=== PATIENT | male | born 1960 | race Caucasian/White ===

== ENCOUNTER 2016-12-27 10:43 | Inpatient (IN) | payer OTHER ==
[2016-12-27] VITALS (8 sets, daily range): BP systolic 135–175; BP diastolic 57–85; PULSE 85–99; RESP 16–20; O2SAT 96–97
[~2016-12-27] VITALS: Ht 190.5 cm; Wt 114.2 kg
[~2016-12-27 10:43] MED LIST: Acetaminophen PO; CEFA2PLA9 IV; INSLIS SUBQ; INSU100V7 SUBQ; METR500T PO; OXYC5TAB72 PO; POLY17PO6 PO; SENN-133 PO
--- NOTE | 2016-12-27 10:54 | ED.REPORT ---
HPI-Abd Pain M 40 and Over Date of Service Dec 27, 2016 ED Provider: Jeffery Alexander MD 56 year old male with a history of diabetes, HTN, and hyperlipidemia presents to the ER complaining of upper abdominal pain onset yesterday. Pain radiates into his chest, and around his rib cage into his back. He also reports a near- syncopal episode yesterday while climbing the stairs. At that time he became lightheaded and immediately proceeded to go to bed and slept for the remainder of the day. Associated symptoms include shaking chills last night, several bouts of vomiting, three days of constipation, urinary hesitance, urinary urgency and urge incontinence. Patient denies dysuria. Nursing Notes Stated Complaint: CHEST AND ABDOMINAL PAIN, UNABLE TO RETAIN URINE Chief Complaint: Male Abdominal Pain Nursing Notes Reviewed: Yes Allergies: Coded Allergies: No Known Allergies (Unverified , 02/20/16) Scheduled Insulin Lispro (Humalog Kwikpen) 200 Unit/Ml (3 Ml) Insuln.pen 16 UNIT SQ BID Scheduled PRN ([Acetaminophen]) 325 MG TABLET 650 MG PO Q4H PRN PRN For Mild Pain or Fever General Time Seen by MD: 10:51 Chief Complaint Abdominal pain Hx Obtained From: Patient Arrived By: Walk-in Sudden in Onset?: No Onset Occurred: Yesterday Symptom Duration: Since onset Location: : Abdomen upper Quality: Painful Radiation: : Back Severity: Current: Moderate Severity: Maximum: Moderate Associated with: Reports: Constipation, Nausea, Vomiting Past Medical History Past Medical History Type II diabetes Hypertension Hyperlipidemia Past Surgical History Reports: Inguinal hernia repair Smoking History Never Smoker Social History Alcohol Use: "Social" Drug Use: Denies drug use Other Social History: Local resident Ambulatory Status Independent Review of Systems Constitutional: Reports: Chills, Fever Respiratory: Denies: Non-productive cough, Shortness of breath Cardiovascular: Reports: Chest pain GI: Reports: Abdominal pain, Constipation, Nausea, Vomiting, Denies: Diarrhea Male: Reports Incontinence, Reports Urinary frequency, Reports Urinary urgency, Denies Dysuria Musculoskeletal: Reports: Back pain Complete sys rev & neg: except as marked. Neurologic: Reports: Lightheaded, Syncope Physical Exam Initial Vital Signs Vital Signs (First) Date Time Temp Pulse Resp B/P Pulse Ox O2 Delivery O2 Flow Rate FiO2 12/27/16 10:46 36.8 99 18 155/81 97 Room Air Initial VS: Reviewed Head / Eyes: Atraumatic, Normocephalic Neck: Supple, Non-tender, Full range of motion Extremities: Vascular intact, Neuro intact, No swelling, No tenderness Skin: Warm, Dry, No cyanosis Neurologic: Alert, Oriented, Nonfocal General/Constitutional: Awake, Alert, Well developed, Well nourished Respiratory / Chest: Breath sounds NL, Breath sounds = bilat, No respiratory distress, No rales, No rhonchi, No wheezing Cardiovascular: Heart rate NL, Regular rhythm, Heart sounds NL, Peripheral circulation NL Abdomen: Soft, Non-tender, No guarding, No rebound, BS normoactive, No distention, No hernia, No palpable mass, No pulsatile mass Back: Inspection NL, Non-tender, No CVA tenderness Interpretation & Diagnostics Lab Results Interpretation Result Diagram: 12/27/16 1113 12/27/16 1113 Test 12/27/16 11:13 12/27/16 12:57 White Blood Count 13.8th/mm3 (3.8-10.1) Red Blood Count 5.49mil/mm3 (4.40-5.80) Hemoglobin 16.0g/dL (13.8-17.2) Hematocrit 46.4% (41.0-50.0) Mean Corpuscular Volume 84.5fL (81-100) Mean Corpuscular Hemoglobin 29.1pg (27.0-35.0) Mean Corpuscular Hemoglobin Concent 34.5% (32.0-37.0) Red Cell Distribution Width 12.8% (12.3-15.4) Platelet Count 184bil/L (150-400) Neutrophils (%) (Auto) 82.7% (40-74) Lymphocytes (%) (Auto) 8.5% (14-46) Monocytes (%) (Auto) 8.4% (4-12) Eosinophils (%) (Auto) 0% (0-5) Basophils (%) (Auto) 0.1% (0-3) Sodium Level 129mEq/L (134-144) Potassium Level 4.0mEq/L (3.5-5.2) Chloride Level 86mEq/L (97-108) Carbon Dioxide Level 18mmol/L (18-29) Blood Urea Nitrogen 17mg/dL (6-24) Creatinine 1.10mg/dL (0.76-1.27) Estimat Glomerular Filtration Rate 73mL/min (>59) Glucose Level 372mg/dL (60-99) Lactic Acid Level 2.3mmol/L (0.4-2.0) Calcium Level 9.7mg/dL (8.5-10.1) Magnesium Level 2.2mg/dL (1.6-2.6) Total Bilirubin 0.6mg/dL (0.0-1.2) Aspartate Amino Transf (AST/SGOT) 41U/L (0-50) Alanine Aminotransferase (ALT/SGPT) 38U/L (0-44) Alkaline Phosphatase 70U/L (25-150) Total Protein 8.5g/dL (6.4-8.4) Albumin 4.4g/dL (3.4-5.0) Lipase 14U/L (13-60) Urine Color Yellow (YELLOW) Urine Appearance Clear (CLEAR,HAZY) Urine pH 5.0 (5.0-8.0) Urine Specific [place] 1.070 (1.003-1.035) Urine Protein Tracemg/dL (NEG,TRACE) Urine Glucose (UA) 500mg/dL (NEGATIVE) Urine Ketones 80mg/dL (NEGATIVE) Urine Occult Blood Negative (NEGATIVE) Urine Nitrite Negative (NEGATIVE) Urine Bilirubin Negative (NEGATIVE) Urine Urobilinogen Normalmg/dL (NORMAL) Urine Leukocyte Esterase Moderate (NEGATIVE) Urine RBC 0-2/hpf (0-2) Urine WBC 11-50/hpf (0-5) Urine Epithelial Cells Few/hpf (NONE-MOD) Urine Crystals None seen (NONE SEEN) Urine Bacteria None/hpf (NONE-FEW) Urine Hyaline Casts None/lpf (NONE) Urine Granular Casts None seen (NONE SEEN) Urine Waxy Casts None seen (NONE SEEN) Urine Red Blood Cell Casts None seen (NONE SEEN) Urine White Blood Cell Casts None seen (NONE SEEN) Urine Mucus None seen (None Seen) Urine Trichomonas None seen (NONE SEEN) Urine Yeast None (NONE SEEN) Urinalysis Comment None Urine Culture Reflexed Indicated ECG Interpretation ECG Interpretation: Sinus rhythm, rate [address] segment changes Time: 11:11 Interpreted by: ED physician CT Abd / Pelvis Interpretation IMPRESSION: Cause of pain is not identified. Scattered diverticula without diverticulitis are present. Mild to moderate prostate enlargement is present. Dictated by: Brandon Wyman M.D. on 12/27/2016 at 13:07 Approved by: Brandon Wyman M.D. on 12/27/2016 at 13:11 Study type: Abdominal CT IV contrast Interpretation / Wet Read by: Interpret - Radiologist Re-Eval/Medical Decision Med Decision/Clinical Course 56 year old male with febrile illness, abdominal pain and UTI. Has 300cc post void residual. Hemodynamically stable, lactate up slightly. Was given NSx2L, blood and urine cx sent. Singh placed, rocephin 2g IV. Admit to hospitalist. FULL CODE per pt. Source of Hx: Old records Time of Eval: 13:38 Re-Evaluation/Progress Note: Discussed lab and CT results, physical examination findings and need for admission. Patient is amenable to the plan. All other questions addressed. Consultation : Referral / Consult Name: Hermelinda Ledesma MD Consulted With: Hospitalist Call Returned at: 13:[address] Clearer: Agrees with eval, Agrees with plan, Accepts admit Counseled Regarding: Diagnosis, Lab results, Need for admission Discharge & Departure Primary Impression: Sepsis Sepsis type: sepsis due to unspecified organism Qualified Code: A41.9 - Sepsis, unspecified organism Additional Impressions: UTI (urinary tract infection) Urinary tract infection type: acute pyelonephritis Qualified Code: N10 - Acute tubulo-interstitial nephritis Urinary retention Disposition: ADMITTED TO HOSPITAL Vital Signs - All Vital Signs Date Time Temp Pulse Resp B/P Pulse Ox O2 Delivery O2 Flow Rate FiO2 12/27/16 10:55 38.8 95 16 175/85 97 Room Air 12/27/16 10:46 36.8 99 18 155/81 97 Room Air )( All Prior VS Reviewed: Yes Condition: Stable Referrals: Gunnar Mirnada DO (PCP) [place] Attestation Portions of this note were transcribed by Len Orta. I, Dr. Alexander, personally performed the history, physical exam and medical decision-making; I reviewed and confirmed the accuracy of the information in the transcribed note. Signed by: Israel Dailey, 12/27/2016, and 13:59 copies to: Gunnar Miranda Donald L MD Dec 27, 2016 10:54 LEN ORTA Dec 27, 2016 11:04
[2016-12-27] MEDS ORDERED: 0.9% Sodium Chloride 1,000 ML IV ONE ×2 (11:01→12:15)
[2016-12-27] MEDS ORDERED: HYDROmorphone 0.5 mg/0.5 mL iSecure Syringe IVPUSH PRN (11:05)
[2016-12-27] MEDS ORDERED: Ondansetron 2 mg/mL 2 mL Inj IVPUSH PRN ×3 (11:05→14:15)
[2016-12-27] MEDS ORDERED: INSU200I SQ (11:19)
[2016-12-27 11:27] LABS: BASOPHILS % (AUTO) 0.1 % (0-3); EOSINOPHILS % (AUTO) 0 % (0-5); MONOCYTES % (AUTO) 8.4 % (4-12); Mean Corpuscular Hemoglobin 29.1 pg (27.0-35.0); Mean Corpuscular Volume 84.5 fL (81-100); NEUTROPHILS % (AUTO) 82.7 % (40-74); Platelet Count 184 bil/L (150-400)
[2016-12-27 11:58] LABS: Magnesium 2.2 mg/dL (1.6-2.6)
--- NOTE | 2016-12-27 13:13 | DRSVH ---
PROCEDURE: CT ABDOMEN AND PELVIS WITH CONTRAST ([id number]) INDICATIONS: abd pain L>R TECHNIQUE: After the administration of intravenous contrast, 5 mm thick sections acquired from the diaphragm to the symphysis. 5 mm coronal and sagittal reformats were acquired. For radiation dose reduction, the following was used: automated exposure control, adjustment of mA and/or kV according to patient lino melendrez. COMPARISON: [facility], CT, ABD/PELVIS W/CON ([facility]), 02/18/2014, 11:15. FINDINGS: Image quality: Excellent. ABDOMEN: Lung bases: Lung bases are clear. Heart size is normal. Solid organs: Liver and spleen are normal in size and enhancement. Gallbladder is within normal caceres its. Biliary system is non dilated. Pancreas enhances normally. No adrenal nodules. Kidneys demon strate normal size and enhancement, without hydronephrosis. Peritoneum and bowel: Bowel loops demonstrate normal wall thickness and caliber. No free fluid or a ir. The appendix is normal. No inflammatory changes are identified. Nodes and vessels: No retroperitoneal or mesenteric adenopathy by size criteria. Aorta and inferior vena cava are normal in size. Miscellaneous: No ventral hernias. PELVIS: Genitourinary: Bladder wall thickness is normal. Prostate is moderately to mildly enlarged. Miscellaneous: No inguinal hernias or adenopathy. Bones: No suspicious bony lesions. No vertebral body compression fractures. IMPRESSION: Cause of pain is not identified. Scattered diverticula without diverticulitis are present . Mild to moderate prostate enlargement is present. Dictated by: Brandon Wyman M.D. on 12/27/2016 at 13:07 Approved by: Brandon Wyman M.D. on 12/27/2016 at 13:11
[2016-12-27 13:22] LABS: APPEARANCE,URINE CLEAR (CLEAR,HAZY); COLOR,URINE YELLOW (YELLOW)
[2016-12-27 13:23] LABS: OCCULT BLOOD,URINE NEGATIVE (NEGATIVE); UROBILINOGEN,URINE NORMAL (NORMAL)
[2016-12-27] MEDS ORDERED: cefTRIAXone Inj 2,000 MG in Dextrose 5% Minibag Plus 50 ML IV ONE (13:40)
[2016-12-27] MEDS ORDERED: Alum-Mag Hydrox-Simeth 30 mL Suspension PO PRN (14:15)
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
[2016-12-27] MEDS ORDERED: Ciprofloxacin Inj 400 MG in IV Premix 1 EACH IV SCH (15:35)
[2016-12-27] MEDS: 0.9% Sodium Chloride 1,000 ML IV SCH (15:50)
[2016-12-27] MEDS ORDERED: INSU100I13 SUBQ (16:10)
[2016-12-27] MEDS ORDERED: Influenza (Adult) Vaccine 0.5 mL Syringe IM ONE (18:40)
--- NOTE | 2016-12-27 19:16 | NUR ---
Admission Patient admitted to the floor at 1600 from the ED. Admission questions and med list accomplished. Vitals - t 36.7, bp-145/74, p-86, rr-18, 02 - 96 ra. Patient complained of 6/10 abd pain. gave patient pain meds. Patient pain went down to 4/10. Oriented patient to the room, placed bed in lowest position and call light within reach.
[2016-12-27] MEDS: Heparin 5,000 Unit/mL Inj SUBQ SCH (21:31)
[2016-12-27] MEDS: Insulin Human REGular 300 Unit/3 mL Inj SUBQ SCH (22:06)
[2016-12-28] VITALS (7 sets, daily range): BP systolic 121–149; BP diastolic 62–77; PULSE 70–86; RESP 16–18; O2SAT 92–96
[2016-12-28] MEDS: 0.9% Sodium Chloride 1,000 ML IV SCH ×3 (00:58→19:27)
--- NOTE | 2016-12-28 01:46 | NUR ---
Pain, Febrile: Pt reported 5/10 abdominal pain, with back tenderness, early in shift. Also noted to have a temp of 38.1 C. Medicated with IV Morphine and Tylenol, pt was able to sleep for a bit. Upon checking with pt 3 hours later, he stated pain continued to be improved, 2/10 on the pain scale. Stated he was able to breath easier and didn't feel the "tightness" to his abdomen. Temp decreased to 37.3 C.
[2016-12-28] MEDS ORDERED: Vancomycin Inj 2,000 MG in 0.9% Sodium Chloride 500 ML IV ONE (03:00)
[2016-12-28] MEDS: Vancomycin Dose per Pharmacist XX SCH ×2 (03:31→08:30)
[2016-12-28] MEDS: Insulin Human REGular 300 Unit/3 mL Inj SUBQ SCH ×5 (03:49→22:33)
--- NOTE | 2016-12-28 04:44 | PCM.CONPHA ---
Subjective Date of Service: Dec 28, 2016 Requesting Provider: Chandu Garcia MD Intractable abdominal pain, vomiting, urinary complaints Reason for Pharmacy Consult: Vancomycin Dosing Objective Vital Signs Date Time Temp Pulse Resp B/P Pulse Ox O2 Delivery O2 Flow Rate FiO2 12/28/16 04:07 36.4 76 18 149/77 96 Room Air 12/28/16 00:11 37.3 83 18 142/65 96 Room Air 12/27/16 23:09 36.7 12/27/16 20:41 38.1 87 16 145/73 96 Room Air 12/27/16 20:00 85 12/27/16 16:03 39.2 87 20 135/57 96 Room Air 12/27/16 16:00 36.7 86 18 145/74 96 Room Air 12/27/16 15:50 87 12/27/16 14:14 39.2 88 20 135/57 96 Room Air 12/27/16 10:55 38.8 95 16 175/85 97 Room Air 12/27/16 10:46 36.8 99 18 155/81 97 Room Air Intake and Output 12/26/16 12/27/16 12/28/16 00:00 00:00 00:00 Intake Total 2375 ml Output Total 1070 ml Balance 1305 ml Weight (Kilograms): 114.200 Height (Feet): 6 Height (Inches): 3.00 Test 12/27/16 11:13 12/27/16 12:57 White Blood Count 13.8th/mm3 (3.8-10.1) Red Blood Count 5.49mil/mm3 (4.40-5.80) Hemoglobin 16.0g/dL (13.8-17.2) Hematocrit 46.4% (41.0-50.0) Mean Corpuscular Volume 84.5fL (81-100) Mean Corpuscular Hemoglobin 29.1pg (27.0-35.0) Mean Corpuscular Hemoglobin Concent 34.5% (32.0-37.0) Red Cell Distribution Width 12.8% (12.3-15.4) Platelet Count 184bil/L (150-400) Neutrophils (%) (Auto) 82.7% (40-74) Lymphocytes (%) (Auto) 8.5% (14-46) Monocytes (%) (Auto) 8.4% (4-12) Eosinophils (%) (Auto) 0% (0-5) Basophils (%) (Auto) 0.1% (0-3) Sodium Level 129mEq/L (134-144) Potassium Level 4.0mEq/L (3.5-5.2) Chloride Level 86mEq/L (97-108) Carbon Dioxide Level 18mmol/L (18-29) Blood Urea Nitrogen 17mg/dL (6-24) Creatinine 1.10mg/dL (0.76-1.27) Estimat Glomerular Filtration Rate 73mL/min (>59) Glucose Level 372mg/dL (60-99) Lactic Acid Level 2.3mmol/L (0.4-2.0) Calcium Level 9.7mg/dL (8.5-10.1) Magnesium Level 2.2mg/dL (1.6-2.6) Total Bilirubin 0.6mg/dL (0.0-1.2) Aspartate Amino Transf (AST/SGOT) 41U/L (0-50) Alanine Aminotransferase (ALT/SGPT) 38U/L (0-44) Alkaline Phosphatase 70U/L (25-150) Total Protein 8.5g/dL (6.4-8.4) Albumin 4.4g/dL (3.4-5.0) Lipase 14U/L (13-60) Procalcitonin 0.40ng/mL (0.00-0.08) Urine Color Yellow (YELLOW) Urine Appearance Clear (CLEAR,HAZY) Urine pH 5.0 (5.0-8.0) Urine Specific [place] 1.070 (1.003-1.035) Urine Protein Tracemg/dL (NEG,TRACE) Urine Glucose (UA) 500mg/dL (NEGATIVE) Urine Ketones 80mg/dL (NEGATIVE) Urine Occult Blood Negative (NEGATIVE) Urine Nitrite Negative (NEGATIVE) Urine Bilirubin Negative (NEGATIVE) Urine Urobilinogen Normalmg/dL (NORMAL) Urine Leukocyte Esterase Moderate (NEGATIVE) Urine RBC 0-2/hpf (0-2) Urine WBC 11-50/hpf (0-5) Urine Epithelial Cells Few/hpf (NONE-MOD) Urine Crystals None seen (NONE SEEN) Urine Bacteria None/hpf (NONE-FEW) Urine Hyaline Casts None/lpf (NONE) Urine Granular Casts None seen (NONE SEEN) Urine Waxy Casts None seen (NONE SEEN) Urine Red Blood Cell Casts None seen (NONE SEEN) Urine White Blood Cell Casts None seen (NONE SEEN) Urine Mucus None seen (None Seen) Urine Trichomonas None seen (NONE SEEN) Urine Yeast None (NONE SEEN) Urinalysis Comment None Urine Culture Reflexed Indicated Assessment/Plan Assessment/Plan A: * Vancomycin dosing by pharmacy for 56 y/o man * 2/2 of his blood cultures are growing gram positive cocci * He is also currently on ciprofloxacin IV * Estimated CrCl is 101 mL/min (Cockcroft & Gault) * Unknown if his SCr is acutely elevated at 1.1 mg/dL or if it's his current baseline; previous values from 2016 were around ~0.5-0.6 mg/dL * Estimated vancomycin half-life is 8 hours and estimated Vd is 80 liters P: * Starting vancomycin 2000 mg IV every 12 hours * Target vancomycin trough range of 15 - 20 mcg/mL * Drawing trough level prior to the fourth dose * Monitor renal function Thank you. Pharmacy will continue to follow this patient. Mara Whiting, PharmD Mara Whitnig Dec 28, 2016 04:44
[2016-12-28] MEDS: Ciprofloxacin Inj 400 MG in IV Premix 1 EACH IV SCH ×2 (05:55→19:27)
[2016-12-28 06:21] LABS: BASOPHILS % (AUTO) 0.1 % (0-3); EOSINOPHILS % (AUTO) 0 % (0-5); MONOCYTES % (AUTO) 10.6 % (4-12); Mean Corpuscular Hemoglobin 29.4 pg (27.0-35.0); Mean Corpuscular Volume 84.3 fL (81-100); NEUTROPHILS % (AUTO) 79.9 % (40-74); Platelet Count 167 bil/L (150-400)
[2016-12-28 07:01] LABS: Magnesium 2.1 mg/dL (1.6-2.6); Phosphorus 1.9 mg/dL (2.5-4.9)
[2016-12-28] MEDS ORDERED: Influenza (Adult) Vaccine 0.5 mL Syringe IM ONE (08:30)
[2016-12-28] MEDS: Heparin 5,000 Unit/mL Inj SUBQ SCH ×2 (08:49→19:27)
--- NOTE | 2016-12-28 10:37 | DRSVH ---
PROCEDURE: X-RAY CHEST ONE VIEW, PORTABLE ([id number]) INDICATIONS: fever TECHNIQUE: One view of the chest was acquired. COMPARISON: [facility], CT, CT ABD PELVIS W CON, 12/27/2016, 12:19. [facility], CR, CHEST 1VW (PORTABLE), 02/18/2014, 10:37. FINDINGS: Surgical changes and devices: None. Lungs and pleura: No pleural effusions or pneumothorax. Lung volumes are low and left basilar airsp sal opacity likely atelectasis. Mediastinum: Mediastinal contours appear normal. Heart size is normal. Bones and chest wall: No suspicious bony lesions. Soft tissues appear unremarkable. IMPRESSION: Left basilar airspace opacity which may represent atelectasis given the low lung volumes but developing pneumonia or aspiration cannot be excluded. Dictated by: Danny MOSQUEDA Interpreted: Pantera Greenfield MD on 12/28/2016 at 10:35 Transcribed by: KATHYA on 12/28/2016 at 10:36 Approved by: Avelino rGeenfield M.D. on 12/28/2016 at 14:40
--- NOTE | 2016-12-28 14:37 | NUR ---
Electromechanical Equipment Assembler: Brief Note Data & Assessment: Patient is a 56 y/o patient that admitted due to sepsis and urinary retention per H&P. SW met with patient at bedside ad explained SW role, discussed home life and discharge planning. Patient lives in a tri-level house with his and juan jose Yuen. Patient uses a walker at baseline. Patient reports that he has had home health in the past, but he can not recall the name. Patient states that he feels safe at home and his will pick him up when discharged. Patient does not have any discharge needs at the current time. SW will continue to follow patient throughout stay. Plan: Patient is likely to discharge home with family in POV and no needs. SW will continue to follow. Dione Marshall, VANIA, ACM
[2016-12-28] MEDS: Vancomycin Inj 2,000 MG in 0.9% Sodium Chloride 500 ML IV SCH (14:53)
--- NOTE | 2016-12-28 16:27 | PCM.PNMED ---
Subjective Date of Service Dec 28, 2016 Subjective complains of feeling "crummy" but denies any new issues/complaints. Exam Vital Signs Vital Sign - Last Date Time Temp Pulse Resp B/P Pulse Ox O2 Delivery O2 Flow Rate FiO2 12/28/16 14:29 36.8 70 16 137/63 95 Room Air Intake and Output 12/27/16 12/27/16 12/28/16 Cumulative From/Thru 15:00 23:00 07:00 12/27/16 10:46 - 12/28/16 05:56 Intake Total 2000 ml 375 ml 2794 ml 5169 ml Output Total 820 ml 250 ml 2250 ml 3320 ml Balance 1180 ml 125 ml 544 ml 1849 ml Intake Oral 375 ml 1020 ml 1395 ml IV Total 2000 ml 1774 ml 3774 ml Output Urine Total 820 ml 250 ml 2250 ml 3320 ml # Bowel Movements 0 0 General: Alert, Cooperative, No Acute Distress Head: Normal Eyes: Scleral Anicteric Nose: Mucous Membr Moist/[place] Mouth: Mucous Membr Moist/[place] Neck: Supple Chest & Lungs: Chest Wall Normal, Clear to auscultation & percussion Cardiovascular: Regular Rate/Rhythm Pulses: NL carotid, radial, femoral, DP, PT Abdomen: Non-tender, Non-distended, No hepatosplenomegaly, Soft Extremities: No cyanosis/clubbing/edma bilat Neurological: Grossly Neurologically Intact, Normal Speech IVs and Medications Medications Reviewed: Medications were reviewed in detail Lab and Diagnostics Result Diagram: 12/28/16 0600 12/28/16 0600 X-Rays, CTs and MRIs PROCEDURE: CT ABDOMEN AND PELVIS WITH CONTRAST ([id number]) INDICATIONS: abd pain L>R TECHNIQUE: After the administration of intravenous contrast, 5 mm thick sections acquired from the diaphragm to the symphysis. 5 mm coronal and sagittal reformats were acquired. For radiation dose reduction, the following was used: automated exposure control, adjustment of mA and/or kV according to patient size. COMPARISON: [facility], CT, ABD/PELVIS W/CON ([facility]), 02/18/2014, 11: 15. FINDINGS: Image quality: Excellent. ABDOMEN: Lung bases: Lung bases are clear. Heart size is normal. Solid organs: Liver and spleen are normal in size and enhancement. Gallbladder is within normal limits. Biliary system is non dilated. Pancreas enhances normally. No adrenal nodules. Kidneys demonstrate normal size and enhancement, without hydronephrosis. Peritoneum and bowel: Bowel loops demonstrate normal wall thickness and caliber. No free fluid or air. The appendix is normal. No inflammatory changes are identified. Nodes and vessels: No retroperitoneal or mesenteric adenopathy by size criteria. Aorta and inferior vena cava are normal in size. Miscellaneous: No ventral hernias. PELVIS: Genitourinary: Bladder wall thickness is normal. Prostate is moderately to mildly enlarged. Miscellaneous: No inguinal hernias or adenopathy. Bones: No suspicious bony lesions. No vertebral body compression fractures. IMPRESSION: Cause of pain is not identified. Scattered diverticula without diverticulitis are present. Mild to moderate prostate enlargement is present. Dictated by: Brandon Wyman M.D. on 12/27/2016 at 13:07 Approved by: Brandon Wyman M.D. on 12/27/2016 at 13:11 12-lead ECG ST92 Assessment & Plan 56-year-old male with hypertension-diet controlled, diabetes on Lantus presented with 2 days abdominal pain, chills, vomiting, urinary complaints. # Acute sepsis due to acute prostatitis and bacteremia, present on admission. improving - SIRS criteria with: fever/HR/RR/wbc and lactic acidosis - s/p Rocephin in ED - c/w Cipro (started on 12/27/16) for better prostate penetration - c/w IV Vanco (started on 12/27/16) for positive blood culture -await final UCX, BCX, -follow up PSA level, consider Urology consult, referral upon d/c # Acute bacteremia, present on admission - suspect source likely prostate infection - f/u final culture results - c/w IV Abx as noted above - consider echo to r/o endocarditis pending final culture result # Acute urinary retentions with enlarged prostate, present on admission - keep Singh for now, then likely to follow up with Urology outpatient # Acute hyponatremia, present on admission. ongoing but improving - c/w IVF and f/u # History of Diabetes Mellitus - c/w ISS - resume home Lantus once pt is more stable # HTN, chronic. - diet controlled. Dispo: 3-4 days VTE Mechanical Devices: Intermittant Pneumatic CD Time spent 35 min Magen Hopson Dec 28, 2016 16:26
[2016-12-29 00:18] VITALS: BP 148/75; PULSE 80; RESP 20; O2SAT 96
[2016-12-29] MEDS: Vancomycin Inj 2,000 MG in 0.9% Sodium Chloride 500 ML IV SCH ×2 (03:48→15:17)
[2016-12-29 04:42] VITALS: BP 160/72; PULSE 78; RESP 18; O2SAT 95
--- NOTE | 2016-12-29 05:27 | NUR ---
Pain, Activity: Medicated for abdominal/back pain with IV morphine x1 and PO Tylenol x1 thus far this shift. Pt was able to get up out of bed and ambulate to the bathroom tonight, had a BM.
[2016-12-29] MEDS: 0.9% Sodium Chloride 1,000 ML IV SCH (06:22)
[2016-12-29] MEDS: Ciprofloxacin Inj 400 MG in IV Premix 1 EACH IV SCH ×2 (06:24→20:34)
[2016-12-29 06:35] LABS: BASOPHILS % (AUTO) 0.1 % (0-3); EOSINOPHILS % (AUTO) 0.1 % (0-5); MONOCYTES % (AUTO) 10.6 % (4-12); Mean Corpuscular Hemoglobin 29.2 pg (27.0-35.0); NEUTROPHILS % (AUTO) 77.9 % (40-74); Platelet Count 191 bil/L (150-400)
[2016-12-29 07:01] LABS: Magnesium 2.1 mg/dL (1.6-2.6)
[2016-12-29] MEDS: Insulin Human REGular 300 Unit/3 mL Inj SUBQ SCH ×4 (07:51→20:59)
[2016-12-29] MEDS: Heparin 5,000 Unit/mL Inj SUBQ SCH ×2 (07:51→21:00)
[2016-12-29] MEDS: Insulin GLARgine 100 Unit/mL Syringe SUBQ SCH ×2 (09:58→20:57)
[2016-12-29 10:31] VITALS: PULSE 77
--- NOTE | 2016-12-29 14:24 | PCM.PNMED ---
Subjective Date of Service Dec 29, 2016 Subjective denies any new issues/complaints. Exam Vital Signs Vital Sign - Last Date Time Temp Pulse Resp B/P Pulse Ox O2 Delivery O2 Flow Rate FiO2 12/29/16 10:31 77 12/29/16 04:42 37.0 18 160/72 95 Room Air Intake and Output 12/28/16 12/28/16 12/29/16 Cumulative From/Thru 15:00 23:00 07:00 12/27/16 10:46 - 12/29/16 06:30 Intake Total 3395 ml 2325 ml 76664 ml Output Total 2400 ml 2200 ml 7920 ml Balance 995 ml 125 ml 2969 ml Intake Oral 1975 ml 900 ml 4270 ml IV Total 1420 ml 1425 ml 6619 ml Output Urine Total 2400 ml 2200 ml 7920 ml # Bowel Movements 0 0 Exam General: Alert, Cooperative, No Acute Distress Head: Normal Eyes: Scleral Anicteric Nose: Mucous Membr Moist/[place] Mouth: Mucous Membr Moist/[place] Neck: Supple Chest & Lungs: Chest Wall Normal, Clear to auscultation bilat Cardiovascular: Regular Rate/Rhythm Pulses: NL carotid, radial, femoral, DP, PT Abdomen: Non-tender, Non-distended, No hepatosplenomegaly, Soft Extremities: No cyanosis/clubbing/edema bilat Neurological: Grossly Neurologically Intact, Normal Speech IVs and Medications Medications Reviewed: Medications were reviewed in detail Lab and Diagnostics Result Diagram: 12/29/16 0608 12/29/16 0608 X-Rays, CTs and MRIs PROCEDURE: CT ABDOMEN AND PELVIS WITH CONTRAST ([id number]) INDICATIONS: abd pain L>R TECHNIQUE: After the administration of intravenous contrast, 5 mm thick sections acquired from the diaphragm to the symphysis. 5 mm coronal and sagittal reformats were acquired. For radiation dose reduction, the following was used: automated exposure control, adjustment of mA and/or kV according to patient size. COMPARISON: [facility], CT, ABD/PELVIS W/CON ([facility]), 02/18/2014, 11: 15. FINDINGS: Image quality: Excellent. ABDOMEN: Lung bases: Lung bases are clear. Heart size is normal. Solid organs: Liver and spleen are normal in size and enhancement. Gallbladder is within normal limits. Biliary system is non dilated. Pancreas enhances normally. No adrenal nodules. Kidneys demonstrate normal size and enhancement, without hydronephrosis. Peritoneum and bowel: Bowel loops demonstrate normal wall thickness and caliber. No free fluid or air. The appendix is normal. No inflammatory changes are identified. Nodes and vessels: No retroperitoneal or mesenteric adenopathy by size criteria. Aorta and inferior vena cava are normal in size. Miscellaneous: No ventral hernias. PELVIS: Genitourinary: Bladder wall thickness is normal. Prostate is moderately to mildly enlarged. Miscellaneous: No inguinal hernias or adenopathy. Bones: No suspicious bony lesions. No vertebral body compression fractures. IMPRESSION: Cause of pain is not identified. Scattered diverticula without diverticulitis are present. Mild to moderate prostate enlargement is present. Dictated by: Brandon Wyman M.D. on 12/27/2016 at 13:07 Approved by: Brandon Wyman M.D. on 12/27/2016 at 13:11 12-lead ECG ST92 Assessment & Plan 56-year-old male with hypertension-diet controlled, diabetes on Lantus presented with 2 days abdominal pain, chills, vomiting, urinary complaints. # Acute sepsis due to presumed acute prostatitis and MRSA bacteremia, present on admission. improving - SIRS criteria with: fever/HR/RR/wbc and lactic acidosis - s/p Rocephin in ED - c/w Cipro (started on 12/27/16) for better prostate penetration - c/w IV Vanco (started on 12/27/16) for positive blood culture # Acute MRSA bacteremia, present on admission - ? source. prostate seems unusual source - check echo to r/o endocarditis - repeat blood cultures until negative - c/w IV Vanco (started on 12/27/16) # Acute on chronic back pain - spine MRI to r/o underlying infection given bacteremia # Elevated PSA level (11.7), consider Urology consult as inpatient vs outpatient when clinically more stable. # Acute urinary retentions with enlarged prostate, present on admission - keep Singh for now, then likely to follow up with Urology outpatient # Acute hyponatremia, present on admission. - Resolved with IVF # History of Diabetes Mellitus. - poorly controlled with HgA1C 12.7 - c/w ISS - resume home Lantus # HTN, chronic. - diet controlled. Dispo: 3-4 days VTE Mechanical Devices: Intermittant Pneumatic CD Time spent 40 min Taleghani,Magen Dec 29, 2016 14:24
[2016-12-29] MEDS ORDERED: Vancomycin Serum Trough XX ONE (14:30)
[2016-12-29 15:03] VITALS: BP 199/78; PULSE 71; RESP 19; O2SAT 97
[2016-12-29 15:10] VITALS: BP 183/83; PULSE 83; RESP 18; O2SAT 97
--- NOTE | 2016-12-29 18:15 | NUR ---
Pt off floor to MRI. Tele notified and removed, IV SL. No s/sx of distress.
--- NOTE | 2016-12-29 18:16 | PCM.PHAPRO ---
Progress Date of Service: Dec 29, 2016 Intractable abdominal pain, vomiting, urinary complaints Vanco per Rx Trough is 5.6; subtherapeutic. SCR returned to 2016 baseline of 0.51 Aim for more aggressive dosing, due to current status; Increase dose to 1750mg Q*H; next trough on 12/31, before AM dose Marc Blakely PharmD Dec 29, 2016 18:16
--- NOTE | 2016-12-29 19:17 | NUR ---
Singh Singh securement device was pulled off. New securement placed, Singh appears to be continuing to drain by gravity. Report to next shift to follow up and monitor.
--- NOTE | 2016-12-29 19:35 | DRSVH ---
PROCEDURE: MRI LUMBAR SPINE WITH AND WITHOUT CONTRAST ([id number]) INDICATIONS: back pain, mrsa bacteremia TECHNIQUE: Noncontrast sagittal T1 spin echo and T2 fast spin echo, sagittal STIR, axial T1 and T2 fast spin ech o through the lumbar spine. In cases with scoliosis, additional coronal T2 fast spin echo may be per formed. After the administration of contrast, sagittal and axial T1 spin echo with fat saturation th rough the lumbar spine. COMPARISON: None. FINDINGS: Image quality: Excellent. Alignment and curvature: There is normal bony alignment. Marrow: Marrow is of normal overall signal. No acute vertebral body compression fractures. No susp icious marrow enhancement. Spinal cord: Conus medullaris terminates at the T12 level. Visualized spinal cord demonstrates norm al signal, without suspicious enhancement. Paraspinous soft tissues: No paravertebral masses or abnormal enhancement. L1-L2: Moderate disc desiccation and height loss. Broad-based disc bulge. Mild facet hypertrophy. No canal stenosis. No foraminal narrowing. L2-L3: Moderate disc desiccation and height loss. Broad-based disc bulge. No canal stenosis. No odilon inal narrowing. L3-L4: Mild disc desiccation and height loss. Broad-based disc bulge. No canal stenosis. No foraminal narrowing. L4-L5: Mild disc desiccation and height loss. Small posterior superimposed disc bulge with focal high intensity zone. No canal stenosis. Mild facet and ligamentum flavum hypertrophy. Mild bilateral neur oforaminal narrowing. L5-S1: Mild disc desiccation and height loss. Broad-based disc bulge. No canal stenosis. No neurofora kyler narrowing. IMPRESSION: 1. No suspicious enhancement to suggest discitis/osteomyelitis. 2. Mild to moderate disc desiccation and height loss throughout the lumbar spine. 3. Broad-based disc bulge with superimposed posterior central disc bulge L4-5 with a posterior annula r tear. 4. No significant canal stenosis or foraminal narrowing of the lumbar spine. Dictated by: Tiffani Davila M.D. on 12/29/2016 at 19:29 Approved by: Tiffani Davila M.D. on 12/29/2016 at 19:33
--- NOTE | 2016-12-29 20:12 | DRSVH ---
PROCEDURE: MRI THORACIC SPINE WITH AND WITHOUT CONTRAST ([id number]) INDICATIONS: back pain, mrsa bacteremia TECHNIQUE: Noncontrast sagittal T1 spin echo and T2 fast spin echo, sagittal STIR, axial T1 and T2 fast spin ech o through the thoracic spine. After the administration of contrast, axial and sagittal T1 spin echo with fat saturation through the thoracic spine. COMPARISON: None. FINDINGS: Image quality: Breathing motion artifact limits evaluation on the postcontrast views. Alignment and curvature: There is normal bony alignment. Marrow: Marrow is of normal overall signal. No acute vertebral body compression fractures. Spinal cord: Visualized spinal cord is of overall normal signal and size, without abnormal enhanceme nt. There is a questionable fluid collection within the posterior epidural space at T2-3. This demons trates mild mass effect on the adjacent cord without cord signal abnormality. It is unclear whether t here is true rim enhancement around this fluid collection. However, on series 17, image 25, there is apparent rim enhancement on single axial view. This is not well appreciated on the comparison sagitta l views in this region. Paraspinous soft tissues: No paravertebral masses or abnormal enhancement. Miscellaneous: There is diffuse disc desiccation and height loss throughout the thoracic spine mild to moderate in degree. No suspicious marrow enhancement or intervertebral disc enhancement. Central c anal and foramina appear widely patent at all scanned levels. IMPRESSION: 1. Questionable rim-enhancing fluid collection within the posterior T2-3 epidural space suspicious fo r small epidural abscess. The study is of limited diagnostic quality likely due to breathing motion a rtifact. Differential considerations include focal epidural lipomatosis. Consider neurosurgical consu ltation. This finding was discussed with Dr. Nelson at 8:05 PM on 12/29/16. 2. Moderate degenerative changes throughout the thoracic spine. Dictated by: Tiffani Davila M.D. on 12/29/2016 at 19:40 Approved by: Tiffani Davila M.D. on 12/29/2016 at 20:10
[2016-12-29 20:23] VITALS: BP 169/76; PULSE 83; RESP 18; O2SAT 96
--- NOTE | 2016-12-29 22:01 | NUR ---
Transfer to [facility] Pt sent via ALS transport to [facility]. Report given to ALS transporters.Pt Fax report filled out and sent to [facility]. Copy of pt fax report kept with transfer packet. Pt agreeable to transfer. He called his . Addendum: 12/29/16 at 2203 by GOOD GRULLON RN Pt drank his anita milk prior to transport
[2016-12-29] MEDS ORDERED: Vancomycin Inj 1,750 MG in 0.9% Sodium Chloride 500 ML IV SCH (23:30)
--- NOTE | 2016-12-30 08:07 | NUR ---
Positive Blood Cultures Rec'd call from lab about positive blood cultures drawn 12/29. Called ALEXANDRIA Marlow @ [facility] to relay results. Addendum: 12/30/16 at 2035 by GOOD CARRASCO RN Blood culture results faxed to [facility] ICU.
--- NOTE | 2016-12-30 14:15 | DRSVH ---
[facility] [address] [place] [address] Echocardiogram Report Name: YUE BURGESS LStudy Date: Height: 75 in Hospital Exam Location: [facility] Weight: 252 lb Gender: Male BSA: 2.4 m2 : 1960 Age: 56 yrs BP: 160/72 mmHg Reason For Study: ENDOCARDITIS Ordering Physician: Performed By: Flaca Clark Referring Physician: Alexis LOPEZ Interpretation Summary 1) Mild concentric left ventricular hypertrophy with normal size, wall motion, and systolic function (EF 60-65%). 2) Normal right ventricular size and function. 3) No significant valvular abnormalities. 4) Hypertension present during the study (BP 160/72). 5) Compared to the Echo done 02/27/2016, no significant change. Consdier JEZ if there is clinical suspicion for endocarditis. Procedure: A two-dimensional transthoracic echocardiogram with color flow and Doppler was performed. The study quality was technically adequate. Comparison is made with the echocardiogram of 02/27/16. The patient was in normal sinus rhythm during the exam. Left Ventricle: The left ventricle is normal in size. There is mild concentric left ventricular hypertrophy. The ejection fraction is estimated to be 60-65%. Left ventricular systolic function is normal. There are no focal wall motion abnormalities. Right Ventricle: The right ventricle is normal in size and function. Atria: The left atrium is mildly dilated. Right atrial size is normal. The interatrial septum is intact with no evidence for an atrial septal defect. Mitral Valve: The mitral valve is normal in structure and function. There is trace mitral regurgitation. Aortic Valve: The aortic valve is normal in structure and function. The aortic valve is trileaflet. The aortic valve opens well. No aortic regurgitation is present. Tricuspid Valve: The tricuspid valve is normal in structure and function. There is a trace or physiologic amount of tricuspid regurgitation. Pulmonary artery pressures cannot be estimated because of the lack of a measurable TR jet velocity. Pulmonic Valve: The pulmonic valve is not well seen, but is grossly normal. There is trace pulmonic regurgitation. Great Vessels: The aortic root is normal size. The dimensions of the ascending aorta are normal. The pulmonary artery is normal size. Pericardium/ Pleura There is no pericardial effusion. There is no pleural effusion. MMode/2D Measurements & Calculations LVIDd: 5.5 cm LA dimension: 4.7 cm RA long axis LVOT diam LVIDs: 3.5 cm FS: 35.8 % LA A2 area: 26.0 cm RA area AoV Opening EPSS: 0.54 cm LA A4 area: 27.2 cm IVSd: 1.3 cm LA length (vol): 6.2 cm : 16.7 cm Ao root diam LVPWd: 1.1 cm LA vol: 97.1 ml RA vol: 44.5 ml LA vol index RA Aortic Jxn : 18.4 mm2 : 3.0 cm IVC diam: 2.5 cm LV arias. diameter/BSA LV sys. diameter/BSA (cm/m^2): 2.3 (cm/m^2): 1.5 Doppler Measurements & Calculations Ao V2 max MV E max rakesh MV E/A: 1.5 MV dec time: 0.20 sec : 129.7 cm/sec : 107.4 cm/sec Pulm A Revs Ao max P.7 mmHg MV A max rakesh Dur: 0.09 sec Ao mean P.2 mmHg : 73.0 cm/sec MV A dur LVOT Max Rakesh : 0.11 sec : 104.3 cm/sec JUAN(I,D): 3.7 cm sev ratio: 0.84 MV P1/2t max rakesh Ao V2 mean LV V1 max PG JUAN indexed to BSA : 107.4 cm/sec : 98.8 cm/sec (cm^2/m^2): 1.5 Ao V2 VTI LV V1 VTI : 21.5 jose MARTINEZ(V,D): 3.5 cm2 Pulm Carlyle Verdin - A Dur: -0.02 msec Reading Physician:02:14 PM
--- NOTE | 2016-12-30 18:18 | PCM.DC.MED ---
Discharge Summary Date of Service Dec 30, 2016 Dates of Hospitalization Date of Hospital Admission Dec 27, 2016 at 14:56 Date of Discharge: Dec 30, 2016 Providers: Admitting Physician: Hermelinda Ledesma MD Primary Care Physician: Gunnar Miranda DO Attending Physician: Hermelinda Ledesma MD Diagnosis at Time of Discharge Diagnosis at Time of Discharge # Acute sepsis due to presumed acute prostatitis and MRSA bacteremia, present on admission. improving # Acute MRSA bacteremia, present on admission # Acute thoracis epidural abscess # Elevated PSA level (11.7) # Acute urinary retentions with enlarged prostate, present on admission # Acute hyponatremia, present on admission. # History of Diabetes Mellitus. # HTN, chronic. Procedures XRay, CTs & MRIs Date of Service: 12/27/16 1101 PROCEDURE: CT ABDOMEN AND PELVIS WITH CONTRAST ([id number]) IMPRESSION: Cause of pain is not identified. Scattered diverticula without diverticulitis are present. Mild to moderate prostate enlargement is present. Dictated by: Brandon Wyman M.D. on 12/27/2016 at 13:07 Approved by: Brandon Wyman M.D. on 12/27/2016 at 13:11 Date of Service: 12/29/16 1424 PROCEDURE: MRI THORACIC SPINE WITH AND WITHOUT CONTRAST ([id number]) IMPRESSION: 1. Questionable rim-enhancing fluid collection within the posterior T2-3 epidural space suspicious for small epidural abscess. The study is of limited diagnostic quality likely due to breathing motion artifact. Differential considerations include focal epidural lipomatosis. Consider neurosurgical consultation. This finding was discussed with Dr. Nelson at 8:05 PM on 12/29/16. 2. Moderate degenerative changes throughout the thoracic spine. Dictated by: Tiffani Davila M.D. on 12/29/2016 at 19:40 Approved by: Tiffani Davila M.D. on 12/29/2016 at 20:10 Cardiac Echo Impression Date of Service: 12/29/16 1424 PROCEDURE: MRI LUMBAR SPINE WITH AND WITHOUT CONTRAST ([id number]) IMPRESSION: 1. No suspicious enhancement to suggest discitis/osteomyelitis. 2. Mild to moderate disc desiccation and height loss throughout the lumbar spine. 3. Broad-based disc bulge with superimposed posterior central disc bulge L4-5 with a posterior annular tear. 4. No significant canal stenosis or foraminal narrowing of the lumbar spine. Dictated by: Tiffani Davila M.D. on 12/29/2016 at 19:29 Approved by: Tiffani Davila M.D. on 12/29/2016 at 19:33 Date of Service: 12/29/16 0739 Echocardiogram Report Reading Physician:02:14 PM Brief History noted in H&P by DR. Ledesma: 56-year-old male with hypertension-diet controlled, diabetes on Lantus presented with 2 days abdominal pain, chills, vomiting, urinary complaints. Patient was usual state of health until 2 days ago, having dribbling when he urinated and it developed urgency, frequency or urination, lower abdominal pain. For the past 2 days, abdominal pain has progressed to throughout his belly up to his chest, last night patient had vomiting once, dry heaves, really became shaky and chills, poor appetite, unable to take anything down because of pain, decided to come to the hospital. Patient usually sees his PCP once a year for checkup, blood sugar has been 200s at baseline. Patient never had urinary problems in the past, was never told that he has prostate problem, denied history of STD, UTI, kidney stones Emergency room vitals blood pressure 150s tachycardic to 99, 97% on room air, developed fever 38.8-39.2. labs showed elevated wbc with neut dominant, hyponatremia, metabolic acidosis, AG25, lactate2.3, UA was +leukEST, neg nitrite , [id number], no bacteria, Abd/pelvis CT win con showed mild-moderate enlargement of prostate, otherwise unremarkable. Pt received 2liters of NS, one dose of Rocephin for presumed UTI. Upon interview at emergency room, pt still c/o abd pain 03/10, denied n/v, feels still weak, sick. Hospital Course # Acute sepsis due to presumed acute prostatitis and MRSA bacteremia, present on admission. improving - SIRS criteria with: fever/HR/RR/wbc and lactic acidosis - s/p Rocephin in ED - c/w Cipro (started on 12/27/16) for better prostate penetration - c/w IV Vanco (started on 12/27/16) for positive blood culture # Acute MRSA bacteremia, present on admission - ? source. prostate seems unusual source - check echo to r/o endocarditis - repeat blood cultures until negative - c/w IV Vanco (started on 12/27/16) # Acute on chronic back pain - spine MRI on 12/29 with ? thoracic epidural abscess # Elevated PSA level (11.7), consider Urology consult as inpatient vs outpatient when clinically more stable. # Acute urinary retentions with enlarged prostate, present on admission - keep Singh for now, then likely to follow up with Urology outpatient # Acute hyponatremia, present on admission. - Resolved with IVF # History of Diabetes Mellitus. - poorly controlled with HgA1C 12.7 - c/w ISS - resume home Lantus # HTN, chronic. - diet controlled. pt was transferred to [facility] overnight by the night hospitalist after MRI result was back suggestive of possible infection. Exam Vital Signs (Last) Date Time Temp Pulse Resp B/P Pulse Ox O2 Delivery O2 Flow Rate FiO2 12/29/16 20:23 36.8 83 18 169/76 96 Room Air Test 12/27/16 11:13 12/27/16 12:57 12/28/16 06:00 12/28/16 08:30 Lipase 14U/L (13-60) Prostate Specific Antigen 11.7ng/mL (0.0-4.0) Urine Color Yellow (YELLOW) Urine Appearance Clear (CLEAR,HAZY) Urine pH 5.0 (5.0-8.0) Urine Specific [place] 1.070 (1.003-1.035) Urine Protein Tracemg/dL (NEG,TRACE) Urine Glucose (UA) 500mg/dL (NEGATIVE) Urine Ketones 80mg/dL (NEGATIVE) Urine Occult Blood Negative (NEGATIVE) Urine Nitrite Negative (NEGATIVE) Urine Bilirubin Negative (NEGATIVE) Urine Urobilinogen Normalmg/dL (NORMAL) Urine Leukocyte Esterase Moderate (NEGATIVE) Urine RBC 0-2/hpf (0-2) Urine WBC 11-50/hpf (0-5) Urine Epithelial Cells Few/hpf (NONE-MOD) Urine Crystals None seen (NONE SEEN) Urine Bacteria None/hpf (NONE-FEW) Urine Hyaline Casts None/lpf (NONE) Urine Granular Casts None seen (NONE SEEN) Urine Waxy Casts None seen (NONE SEEN) Urine Red Blood Cell Casts None seen (NONE SEEN) Urine White Blood Cell Casts None seen (NONE SEEN) Urine Mucus None seen (None Seen) Urine Trichomonas None seen (NONE SEEN) Urine Yeast None (NONE SEEN) Urinalysis Comment None Urine Culture Reflexed Indicated Hemoglobin A1c 12.7% (4.8-5.6) Phosphorus Level 1.9mg/dL (2.5-4.9) Total Bilirubin 0.4mg/dL (0.0-1.2) Aspartate Amino Transf (AST/SGOT) 27U/L (0-50) Alanine Aminotransferase (ALT/SGPT) 26U/L (0-44) Alkaline Phosphatase 54U/L (25-150) Total Protein 5.8g/dL (6.4-8.4) Albumin 3.3g/dL (3.4-5.0) Procalcitonin 0.32ng/mL (0.00-0.08) Lactic Acid Level 1.0mmol/L (0.4-2.0) Test 12/29/16 06:08 12/29/16 14:35 White Blood Count 14.1th/mm3 (3.8-10.1) Red Blood Count 4.83mil/mm3 (4.40-5.80) Hemoglobin 14.1g/dL (13.8-17.2) Hematocrit 40.1% (41.0-50.0) Mean Corpuscular Volume 83.0fL (81-100) Mean Corpuscular Hemoglobin 29.2pg (27.0-35.0) Mean Corpuscular Hemoglobin Concent 35.2% (32.0-37.0) Red Cell Distribution Width 12.8% (12.3-15.4) Platelet Count 191bil/L (150-400) Neutrophils (%) (Auto) 77.9% (40-74) Lymphocytes (%) (Auto) 10.8% (14-46) Monocytes (%) (Auto) 10.6% (4-12) Eosinophils (%) (Auto) 0.1% (0-5) Basophils (%) (Auto) 0.1% (0-3) Sodium Level 134mEq/L (134-144) Potassium Level 3.5mEq/L (3.5-5.2) Chloride Level 96mEq/L (97-108) Carbon Dioxide Level 17mmol/L (18-29) Blood Urea Nitrogen 7mg/dL (6-24) Creatinine 0.51mg/dL (0.76-1.27) Estimat Glomerular Filtration Rate 178mL/min (>59) Glucose Level 248mg/dL (60-99) Calcium Level 8.4mg/dL (8.5-10.1) Magnesium Level 2.1mg/dL (1.6-2.6) Vancomycin Level Trough 5.6mcg/mL Discharge Medications Discharge Medications Insulin Glargine (Lantus U100 Solostar Insulin Pen) 100 Unit/1 Ml Insuln.pen 16 UNIT SUBQ BID (Reported) As needed ([Acetaminophen]) 325 MG TABLET 650 MG PO Q4H PRN PRN For Mild Pain or Fever Prescribed by: XOCHILT BELTRAN MD Followup Plan Disposition: Transfer to [facility] Time spent 35 min copies to: Gunnar Miranda Masoud Dec 30, 2016 18:17
[2016-12-31] MEDS ORDERED: Vancomycin Serum Trough XX ONE (07:00)
== END 2016-12-29 22:05 | disposition short-term general hospital (02) | DRG 871 ==
LOC: SED 11:08 → MPC 14:56
PROVIDERS: ADMIT Internal Medicine; ATTEND Internal Medicine
DX: A41.02 Sepsis due to Methicillin resistant Staphylococcus aureus (principal); G06.1 Intraspinal abscess and granuloma; N41.0 Acute prostatitis; E87.1 Hypo-osmolality and hyponatremia; E87.2 Acidosis; I10 Essential (primary) hypertension; E11.9 Type 2 diabetes mellitus without complications; R97.20 Elevated prostate specific antigen [PSA]; E78.5 Hyperlipidemia, unspecified; R33.8 Other retention of urine; N40.1 Benign prostatic hyperplasia with lower urinary tract symptoms; F12.90 Cannabis use, unspecified, uncomplicated; Z79.4 Long term (current) use of insulin

== ENCOUNTER 2017-03-16 16:13 | Emergency (ER) | payer OTHER ==
[~2017-03-16] VITALS: Ht 190.5 cm; Wt 115.9 kg
[~2017-03-16 16:13] MED LIST changes: -CEFA2PLA9 IV; -INSLIS SUBQ; +INSU100I13 SUBQ; -INSU100V7 SUBQ; -METR500T PO; -OXYC5TAB72 PO; -POLY17PO6 PO; -SENN-133 PO
[2017-03-16 16:29] VITALS: BP 123/81; PULSE 66; RESP 18; O2SAT 100
--- NOTE | 2017-03-16 17:17 | DRSVH ---
PROCEDURE: X-RAY CHEST ONE VIEW, PORTABLE ([id number]) INDICATIONS: 56 year-old male with chest pain. TECHNIQUE: One view of the chest was acquired. COMPARISON: [facility], CR, XR CHEST 1VW (PORTABLE), 12/28/2016, 9:56. [facility], CR, CHEST 1VW (PORTABLE), 02/18/2014, 10:37. [facility], CR, CHEST 2VW, 09/17/2013 , 9:24. FINDINGS: Surgical changes and devices: None. Lungs and pleura: No pleural effusions or pneumothorax. Lungs are clear. Mediastinum: Mediastinal contours appear normal. Heart size is normal. Bones and chest wall: No suspicious bony lesions. Overlying soft tissues appear unremarkable. IMPRESSION: No acute cardiopulmonary disease. Dictated by: Erwin Santizo M.D. on 03/16/2017 at 17:09 Approved by: Erwin Santizo M.D. on 03/16/2017 at 17:10
[2017-03-16 17:36] VITALS: BP 137/78; PULSE 94; RESP 14; O2SAT 97
[2017-03-16 17:46] LABS: BASOPHILS % (AUTO) 0.3 % (0-3); EOSINOPHILS % (AUTO) 0.8 % (0-5); MONOCYTES % (AUTO) 7.1 % (4-12); Mean Corpuscular Hemoglobin 27.6 pg (27.0-35.0); Mean Corpuscular Volume 81.5 fL (81-100); Platelet Count 353 bil/L (150-400)
[2017-03-16 18:08] LABS: TROPONIN T < 0.010 ug/L (0.0-0.011)
--- NOTE | 2017-03-16 18:08 | DRSVH ---
PROCEDURE: X-RAY CHEST ONE VIEW, PORTABLE ([id number]) INDICATIONS: 56 year-old male with chest pain. TECHNIQUE: One view of the chest was acquired. COMPARISON: [facility], CR, XR CHEST 1VW (PORTABLE), 03/16/2017, 16:40. [facility], CR, XR CHEST 1VW (PORTABLE), 12/28/2016, 9:56. [facility], CR, CHEST 1VW (PORTABL E), 02/18/2014, 10:37. FINDINGS: Surgical changes and devices: None. Lungs and pleura: No pleural effusions or pneumothorax. Lungs are clear. Mediastinum: Mediastinal contours appear normal. Heart size is normal. Bones and chest wall: No suspicious bony lesions. Overlying soft tissues appear unremarkable. IMPRESSION: No acute cardiopulmonary disease. Dictated by: Erwin Santizo M.D. on 03/16/2017 at 18:00 Approved by: Erwin Santizo M.D. on 03/16/2017 at 18:01
--- NOTE | 2017-03-16 18:15 | ED.REPORT ---
HPI-Chest Pain 40 and Over Date of Service March 16, 2017 ED Provider: James Khan DO Patient is a 56 year old male with a history of hypertension, diabetes and hyperlipidemia who had a thoracic spine epidural abscess drained a few months ago who presents to the ED complaining of chest pain onset two days ago. Associated symptoms include pain that radiates into his back and abdomen, shortness of breath, subjective fever and diarrhea. He denies vomiting or cough. The patient reports that the pain has gotten progressively worse and describes the pain as a tightness that gets worse after eating. Nursing Notes Stated Complaint: BACK PAIN, CHEST PAIN Chief Complaint: Chest Pain Nursing Notes Reviewed: Yes Allergies: Coded Allergies: No Known Allergies (Unverified , 02/20/16) Scheduled Insulin Glargine (Lantus U100 Solostar Insulin Pen) 100 Unit/1 Ml Insuln.pen 16 UNIT SUBQ BID Scheduled PRN ([Acetaminophen]) 325 MG TABLET 650 MG PO Q4H PRN PRN For Mild Pain or Fever General Time Seen by MD: 18:14 Chief Complaint Chest pain Hx Obtained From: Patient Arrived By: Walk-in Sudden in Onset?: Yes Onset Occurred: 2 days ago Symptom Duration: Since onset Location: : Substernal Radiation: : Abdomen: Back Associated with: Reports: Fever (subjective), Shortness of Breath, Denies: Cough, non-productive, Vomiting Recent Healthcare: Recent doctor visit, Recent hospitalization Past Medical History Past Medical History Type II diabetes Hypertension Hyperlipidemia Past Surgical History back surgery Reports: Inguinal hernia repair Smoking History Never Smoker Social History Alcohol Use: "Social" Drug Use: Denies drug use Other Social History: Local resident Ambulatory Status Independent Review of Systems Constitutional: Reports: Fever (subjective) Respiratory: Reports: Shortness of breath, Denies: Non-productive cough Cardiovascular: Reports: Chest pain GI: Reports: Abdominal pain, Diarrhea, Denies: Vomiting Musculoskeletal: Reports: Back pain Complete sys rev & neg: except as marked. Physical Exam Initial Vital Signs Vital Signs (First) Date Time Temp Pulse Resp B/P Pulse Ox O2 Delivery O2 Flow Rate FiO2 03/16/17 16:29 36.6 66 18 123/81 100 Room Air Initial VS: Reviewed General/Constitutional: Awake, Alert Respiratory / Chest: Atraumatic, Breath sounds NL, Breath sounds = bilat, No respiratory distress Cardiovascular: Heart rate NL, Regular rhythm, Heart sounds NL Abdomen: Atraumatic, Soft Tenderness/Guarding/Rebound: Positive: Tender diffuse Back: Atraumatic, Full range of motion paramidline incision healing well Skin: Atraumatic, Color NL, No rash, Warm, Dry Neurologic: Oriented X3, Speech NL, No motor deficits, No sensory deficits Psychiatric: Affect NL, Mood NL Head / Eyes: Atraumatic, Normocephalic, PERRL, EOMI Interpretation & Diagnostics Interpretation & Diagnostics: ULTRASOUND ABDOMEN: IMPRESSION: Diffusely heterogeneous liver echotexture, a nonspecific finding that probably represents mild fatty infiltration in the absence of any known chronic liver disease or primary malignancy. Dictated by: Erwin Santizo M.D. on 03/16/2017 at 19:24 Approved by: Erwin Santizo M.D. on 03/16/2017 at 19:27 THORACIC SPINE MRI: IMPRESSION: 1. Interval development of T4-T5 posterior discitis with adjacent T4 and T5 vertebral body and medial left fourth rib osteomyelitis. Residual or recurrent T4 and T5 left paravertebral heterogeneously enhancing infectious phlegmon is also present, with extension through the left neural foramen to cause significant left central spinal canal narrowing with cord compression. 2. Additional posterior epidural enhancement from the T1-T7 levels, suspicious for epidural abscess. Findings were discussed with James Khan at 2140 hrs on March 16, 2017. Dictated by: Erwin Santizo M.D. on 03/16/2017 at 21:26 Approved by: Erwin Santizo M.D. on 03/16/2017 at 21:45 Lab Results Interpretation Result Diagram: 03/16/17 1744 03/16/17 1744 Test 03/16/17 17:44 White Blood Count 14.3th/mm3 (3.8-10.1) Red Blood Count 4.92mil/mm3 (4.40-5.80) Hemoglobin 13.6g/dL (13.8-17.2) Hematocrit 40.1% (41.0-50.0) Mean Corpuscular Volume 81.5fL (81-100) Mean Corpuscular Hemoglobin 27.6pg (27.0-35.0) Mean Corpuscular Hemoglobin Concent 33.9% (32.0-37.0) Red Cell Distribution Width 13.8% (12.3-15.4) Platelet Count 353bil/L (150-400) Neutrophils (%) (Auto) 75.0% (40-74) Lymphocytes (%) (Auto) 16.6% (14-46) Monocytes (%) (Auto) 7.1% (4-12) Eosinophils (%) (Auto) 0.8% (0-5) Basophils (%) (Auto) 0.3% (0-3) Sodium Level 131mEq/L (134-144) Potassium Level 4.1mEq/L (3.5-5.2) Chloride Level 92mEq/L (97-108) Carbon Dioxide Level 20mmol/L (18-29) Blood Urea Nitrogen 14mg/dL (6-24) Creatinine 0.70mg/dL (0.76-1.27) Estimat Glomerular Filtration Rate 124mL/min (>59) Glucose Level 399mg/dL (60-99) Calcium Level 9.9mg/dL (8.5-10.1) Magnesium Level 2.0mg/dL (1.6-2.6) Total Bilirubin 0.4mg/dL (0.0-1.2) Aspartate Amino Transf (AST/SGOT) 15U/L (0-50) Alanine Aminotransferase (ALT/SGPT) 14U/L (0-44) Alkaline Phosphatase 94U/L (25-150) Troponin T < 0.010ug/L (0.0-0.011) C-Reactive Protein 13.1mg/dL (0.0-0.5) Total Protein 8.3g/dL (6.4-8.4) Albumin 3.9g/dL (3.4-5.0) ECG Interpretation ECG Interpretation: sinus or ectopic atrial rhythm abnormal R-wave progression, early transition Time: 16:35 Interpreted by: ED physician Normal ECG Interpretation: Normal rate (91) X-Ray Chest Interpretation Chest Xray Interpretation: IMPRESSION: No acute cardiopulmonary disease. Dictated by: Erwin Santizo M.D. on 03/16/2017 at 17:09 Approved by: Erwin Santizo M.D. on 03/16/2017 at 17:10 View: Portable, 1 view Interpretation / Wet Read by: Interpret - Radiologist Re-Eval/Medical Decision Med Decision/Clinical Course MRI shows significant areas of infection including the disks, vertebral bodies, or rib and a misty-incisional phlegmon that is probably infected as well. Suspicious also for epidural abscess. This is all beyond the capabilities of our facilities as we do not have a spine surgeon. I consulted with Dr. Sierra and Dr. Cornejo at [facility]. They have graciously accepted Mr. Lewis in transfer. We will hold off antibiotics until they have definitive tissue to culture and they will initiate antibiotics. Mr. Lewis does not have any indicators of sepsis. He is not tachycardic or hypotensive and he certainly does not look acutely ill. I think it is prudent to hold off on antibiotics to tissue culture has been taken. Dr. Cornejo concurs. Time of Eval: 16:40 Re-Evaluation/Progress Note: Discussed plan for MRI and further evaluation. Consultation : Consulted With: Trauma surgeon Call Returned at: 22:37 [employer]: Will see patient, Agrees with eval, Agrees with plan, Accepts admit Note: Consult with Dr. Cornejo from [facility], who accepts the transfer. Counseled Regarding: Diagnosis, Lab results, Need for transfer Discharge & Departure Primary Impression: Osteomyelitis of thoracic region Additional Impressions: Discitis of thoracic region Epidural abscess Postoperative abscess Encounter type: subsequent encounter Qualified Code: T81.4XXD - Infection following a procedure, subsequent encounter Disposition: Transfer, Acute Care Facility Discharge Condition All VS Reviewed: Yes Condition: Stable Referrals: Gunnar Miranda DO (PCP) [place] Attestation Portions of this note were transcribed by Thea Ceron. I, Dr. Khan personally performed the history, physical exam and medical decision-making; I reviewed and confirmed the accuracy of the information in the transcribed note. Signed by: Israel Roach, 03/16/17 and 2200 copies to: Gunnar Miranda Todd P DO March 16, 2017 18:15 Fatuma Ceron March 16, 2017 18:22
[2017-03-16 18:35] VITALS: BP 133/74; PULSE 78; RESP 17; O2SAT 97
[2017-03-16] MEDS ORDERED: Ondansetron 2 mg/mL 2 mL Inj IVPUSH PRN (18:40)
[2017-03-16] MEDS ORDERED: HYDROmorphone 0.5 mg/0.5 mL iSecure Syringe IVPUSH PRN (18:40)
--- NOTE | 2017-03-16 19:34 | DRSVH ---
PROCEDURE: US ABDOMEN ([id number]) INDICATIONS: 56 year-old male with chest and upper abdominal pain. TECHNIQUE: Real-time scanning was performed of the abdominal and retroperitoneal organs, with image documentatio n. COMPARISON: [facility], CT, CT ABD PELVIS W CON, 12/27/2016, 12:19. FINDINGS: Liver: Liver is normal in size and diffusely heterogeneous in echotexture. Gallbladder: No gallstones or biliary sludge. Gallbladder wall thickness is normal. No pericholecyst ic fluid. Biliary ducts: Intrahepatic bile ducts are non-dilated. Extrahepatic bile duct caliber measures 4.3 mm. Normal is 6-7 mm or less in diameter, or 10 mm or less post-cholecystectomy. Pancreas: Visualized portions of the pancreas are sonographically normal. Spleen: Spleen is normal in size and homogeneous in echotexture. Kidneys: Kidneys are normal in size and echotexture. Right kidney measures 13.7 cm long; left kidne y measures 12.4 cm long. No hydronephrosis or nephrolithiasis. No solid masses. Aorta: Visualized aorta is normal in caliber at less than 3 cm. Iliacs: Proximal common iliac arteries are normal in caliber at less than 2.5 cm. IVC: Intrahepatic inferior vena cava is patent. Miscellaneous: No free abdominal fluid. IMPRESSION: Diffusely heterogeneous liver echotexture, a nonspecific finding that probably represents mild fatty infiltration in the absence of any known chronic liver disease or primary malignancy. Dictated by: Erwin Santizo M.D. on 03/16/2017 at 19:24 Approved by: Erwin Santizo M.D. on 03/16/2017 at 19:27
[2017-03-16 21:37] VITALS: BP 151/77; PULSE 92; RESP 17; O2SAT 95
--- NOTE | 2017-03-16 21:52 | DRSVH ---
PROCEDURE: MRI THORACIC SPINE WITH AND WITHOUT CONTRAST ([id number]) INDICATIONS: 56 year-old male with upper back pain, and paravertebral abscess debridement several mon ths ago. TECHNIQUE: Noncontrast sagittal T1 spin echo and T2 fast spin echo, sagittal STIR, axial T1 and T2 fast spin ech o through the thoracic spine. After the administration of contrast, axial and sagittal T1 spin echo with fat saturation through the thoracic spine. COMPARISON: [facility], MR, MR THORACIC SPINE W&WO CON, 12/29/2016, 18:28. FINDINGS: Image quality: Excellent. Alignment and curvature: There is normal bony alignment. Marrow: Marrow is of normal overall background signal, with newly apparent localized bone marrow moshe ma and enhancement involving the posterior T4 and T5 vertebral bodies, with involvement of the medial left fourth rib as well. The intervening intervertebral disc also demonstrates posterior fluid sign al. No acute vertebral body compression fractures. Spinal cord: Visualized spinal cord is of normal signal and size, without abnormal enhancement. Ther e is abnormal posterior epidural thickening and enhancement from the T1-T7 levels. Paraspinous soft tissues: There is heterogeneously enhancing left paravertebral soft tissue left of t he L4 and L5 vertebral bodies. On series 9 image 21, there is extension of abnormal enhancement throu gh the left T4-T5 neural foramen to cause asymmetric narrowing of the central spinal canal. There is C5-T6 posterior paravertebral enhancement and linear surgical scar. IMPRESSION: 1. Interval development of T4-T5 posterior discitis with adjacent T4 and T5 vertebral body and medial left fourth rib osteomyelitis. Residual or recurrent T4 and T5 left paravertebral heterogeneously en hancing infectious phlegmon is also present, with extension through the left neural foramen to cause significant left central spinal canal narrowing with cord compression. 2. Additional posterior epidural enhancement from the T1-T7 levels, suspicious for epidural abscess. Findings were discussed with James Khan at 2140 hrs on March 16, 2017. Dictated by: Erwin Santizo M.D. on 03/16/2017 at 21:26 Approved by: Erwin Santizo M.D. on 03/16/2017 at 21:45
[2017-03-16 22:47] VITALS: BP 137/64; PULSE 82; RESP 14; O2SAT 96
== END 2017-03-16 23:15 | disposition short-term general hospital (02) ==
LOC: SED 16:13
DX: T81.4XXD Infection following a procedure, subsequent encounter (principal); Y83.8 Other surgical procedures as the cause of abnormal reaction of the patient, or of later complication, without mention of misadventure at the time of the procedure; Y92.89 Other specified places as the place of occurrence of the external cause; Y99.8 Other external cause status; M46.24 Osteomyelitis of vertebra, thoracic region; M46.44 Discitis, unspecified, thoracic region; I10 Essential (primary) hypertension; E78.5 Hyperlipidemia, unspecified; E11.9 Type 2 diabetes mellitus without complications; Z79.4 Long term (current) use of insulin
CPT/HCPCS: 36415; 71010; 72157; 76700; 80053; 83735; 84484; 85025; 86140; 87040; 87077; 87186; 93005; 99285; A9585

== ENCOUNTER 2017-04-07 12:14 | Inpatient (IN) | payer OTHER ==
[~2017-04-07] VITALS: Ht 190.5 cm; Wt 114.0 kg
[2017-04-07 12:19] VITALS: BP 118/72; PULSE 95; RESP 16; O2SAT 97
--- NOTE | 2017-04-07 13:33 | ED.REPORT ---
HPI-General Illness Date of Service Apr 07, 2017 ED Provider: Diana Balbuena MD Pt is a 56 y/o male w/ a hx of thoracic discitis, epidural abscess, and osteomyelitis, NIDDM, HTN, presenting to the ED due to elevated Vancomycin trough levels. The patient was called by [facility] and told his Vancomycin level was "3x too high". 5 months ago they found "5 abscesses about his thoracic spine" which were surgically removed at [facility]. He was discharged to [facility] for 3 months. He then presented to the ED again on March 16 with complaints of chest and back pain and a thoracic MRI was interpreted as "interval development of T4-T5 posterior discitis with adjacent T4 and T5 vertebral body and medial left fourth rib osteomyelitis. Residual or recurrent T4 and T5 left paravertebral heterogeneously enhancing infectious phlegmon is also present, with extension through the left neural foramen to cause significant left central spinal canal narrowing with cord compression. Additional posterior epidural enhancement from the T1-T7 levels, suspicious for epidural abscess." He was sent back to [facility] and was subsequently discharged to home health with outpatient Vancomycin. He does not remember who his doctor in [facility] is or how to contact them. An infectious disease PA called our ED prior to arrival and told us that his blood cultures were positive in early March but negative in late March and that his recent labs showed a Vancomycin level of 34 with signs of acute renal failure with a baseline creatinine bump from around 0.6 to 2.3 today. He reports chest tightness which is chronic. He would not be in the ED if he was not told his Vancomycin level was too high. His last Vancomycin infusion was yesterday at 08:00. Pt denies fever, chills, nausea, vomiting, decreased urination. Nursing Notes Stated Complaint: INFECTION ON BACK Chief Complaint: General Complaint Nursing Notes Reviewed: Yes Allergies: Coded Allergies: No Known Allergies (Unverified , 02/20/16) Scheduled Insulin Glargine (Lantus U100 Solostar Insulin Pen) 100 Unit/1 Ml Insuln.pen 20 UNIT SUBQ BID Insulin Lispro (HumaLOG U100 Insulin Pen) 100 Unit/1 Ml Insuln.pen 4-8 UNITS [id number] BEFORE MEALS General Time Seen by MD: 13:30 Chief Complaint Other (abnl labs) Hx Obtained From: Patient Arrived By: Walk-in Sudden in Onset?: No Onset Occurred: Onset unknown Symptom Duration: Since onset Location: : Chest Quality: Pressure Severity: Current: Mild Severity: Maximum: Mild Recent Healthcare: Recent doctor visit, Recent hospitalization, Recent testing , Previous diagnosis, Prior workup Similar Sx Previous: No Past Medical History Past Medical History Notes: Much of care at [facility] Past Medical History Thoracic spine osteomyelitis Thoracic spine discitis Thoracic spine epidural abscess Type II diabetes Hypertension Hyperlipidemia Hx UTI Hx right foot osteomyelitis Past Surgical History Back PICC line insertion right antecubital fossa Reports: Inguinal hernia repair Smoking History Never Smoker Social History Alcohol Use: "Social" Drug Use: Denies drug use Other Social History: Local resident Ambulatory Status Independent Review of Systems Full Review of Systems Constitutional: Denies: Chills, Fever Respiratory: Denies: Non-productive cough, Shortness of breath Cardiovascular: Reports: Chest pain GI: Denies: Abdominal pain, Nausea, Vomiting Male: Denies Flank pain, Denies Urination decreased Complete sys rev & neg: except as marked. Physical Exam Vital Signs Vital Signs Date Time Temp Pulse Resp B/P Pulse Ox O2 Delivery O2 Flow Rate FiO2 04/07/17 12:19 36.9 95 16 118/72 97 Room Air Initial VS: Reviewed, Vital signs normal Head / Eyes: Atraumatic, Normocephalic, PERRL ENT: Mucous membranes moist, Conjunctiva normal, No scleral icterus Respiratory: Breath sounds normal, Clear to auscultation, No respiratory distress Cardiovascular: Regular rate & rhythm, Heart sounds normal, Intact distal pulses Abdomen / GI: Soft, Non-tender, No guarding, No rebound, No distention Skin: Warm, Dry, No cyanosis Neurologic: Alert, Oriented, Nonfocal Psychiatric: Mood/affect normal, Behavior normal, Normal thought content Neck: Atraumatic, Supple, No meningismus, Full range of motion, No swelling, Non-tender, No midline vertebral tend Back: Full range of motion, Painless range of motion Well healed cervical and thoracic scar Upper Extremities Upper Extremity / MS: No erythema, No deformity, Neurologic intact, Vascular intact PICC line right antecubital fossa Interpretation & Diagnostics Lab Results Interpretation Result Diagram: 04/07/17 1340 Test 04/07/17 13:40 Sodium Level 133mEq/L (134-144) Potassium Level 4.5mEq/L (3.5-5.2) Chloride Level 94mEq/L (97-108) Carbon Dioxide Level 20mmol/L (18-29) Blood Urea Nitrogen 38mg/dL (6-24) Creatinine 2.23mg/dL (0.76-1.27) Estimat Glomerular Filtration Rate 32mL/min (>59) Glucose Level 346mg/dL (60-99) Calcium Level 9.6mg/dL (8.5-10.1) Hold Teresa Top Tube Received (Received) Random Vancomycin Level 26.3ug/mL Rx Re-Eval/Medical Decision Med Decision/Clinical Course 56-year-old gentleman with complex history of epidural abscess spinal surgeries osteomyelitis R with MRSA. Discharged from [facility] on March 27. PICC line in place plan was for 12 additional weeks of vancomycin. Reports of blood cultures finally negative prior to his discharge from [facility]. Has been followed by the infectious disease clinic at [facility]. Has had home health nursing helping with IV infusion. Recent labs indicate increasing creatinine and increasing vancomycin level. He is asked to come to the closest emergency department for his presumed vancomycin induced renal toxicity. At this point he is alert and appropriate stable no signs of acute infectious disease he has a PICC line in the right antecubital fossa. He has no signs of volume overload. Have ordered UA and renal ultrasound. Nephrology and infectious disease consult. Will be admitted to our hospitalist service. Records from [facility] are reviewed and found to see review of recent vancomycin dosing has been done as well Time of Eval: 15:08 Re-Evaluation/Progress Note: Pt rechecked. Informed pt of need for admission for management of acute renal failure. Pt understands and agrees with plan for admission. All questions addressed. Consultation #1: Call Returned at: 13:35 Note: Consulted pharmacist. They will try to contact [facility] to find Vancomycin dosing. Consultation #2: Referral / Consult Name: Brett Li MD Call Returned at: 15:04 Chef Manager: Will see patient, Agrees with eval, Agrees with plan Note: Consulted with ID. He will follow the case during the patient's admission. Consultation #3: Referral / Consult Name: Brett Li MD Consulted With: Nephrology Call Returned at: 15:06 Chef Manager: Will see patient, Agrees with eval, Agrees with plan Note: Will follow during admit. Consultation #4: Referral / Consult Name: Leonidas Carter MD Consulted With: Hospitalist Call Returned at: 15:52 Chef Manager: Will see patient, Agrees with eval, Agrees with plan, Accepts admit Counseled Regarding: Diagnosis, Lab results, Need for admission Discharge & Departure Primary Impression: Acute renal failure Acute renal failure type: unspecified Qualified Code: N17.9 - Acute kidney failure, unspecified Additional Impression: Vancomycin-induced nephrotoxicity Disposition: ADMITTED TO HOSPITAL Discharge Condition All VS Reviewed: Yes Condition: Stable Referrals: Gunnar Miranda DO (PCP) Israel Attestation Portions of this note were transcribed by Gerard Laws. I, Dr. Balbuena personally performed the history, physical exam and medical decision-making; I reviewed and confirmed the accuracy of the information in the transcribed note. Signed by Israel Barron, 04/07/17 - 1399 copies to: Gunnar Miranda Shawna L MD Apr 07, 2017 13:33 GERARD LAWS Apr 07, 2017 13:40
[2017-04-07] MEDS ORDERED: INSU100I18 SUBCUTA079 (15:47)
[2017-04-07] MEDS ORDERED: Polyethylene Glycol (PEG) 17 Gm Powder PO PRN (16:20)
[2017-04-07] MEDS ORDERED: Alum-Mag Hydrox-Simeth 30 mL Suspension PO PRN (16:20)
[2017-04-07] MEDS ORDERED: Ondansetron 2 mg/mL 2 mL Inj IVPUSH PRN (16:20)
[2017-04-07] MEDS ORDERED: Glucose 40% Oral Gel 15 Gm Tube PO PRN (16:25)
--- NOTE | 2017-04-07 16:54 | PCM.HPMED ---
Subjective Date of Service Apr 07, 2017 Primary Provider: Admitting Physician: Primary Care Physician: Gunnar Miranda DO Attending Physician: Admit Status: From the Emergency Department, Full Admit, Admit to Red Team Chief Complaint: Patient was called and advised to come to emergency room by ID clinic due to worsening kidney function and elevated vancomycin level History of Present Illness: Background history Grayson Is unfortunate 56-year-old gentleman with past medical history of diabetes, hypertension who presented to [facility] on 12/27/16 with sepsis/MRSA bacteremia and MRI showed T2-T3 epidural abscess and transferred to [facility] on 12/29. He was found to have C4-T5 MRSA epidural abscess and underwent laminectomy and evacuation. He was discharged with IV antibiotics? Vancomycin and completed. 2 weeks after he completed his antibiotics course he presented to [facility] ED on 03/16/17 with back pain. MRI showed T4- T5 posterior discitis with adjacent T4 and T5 vertebral body and medial left 4th rib osteomyelitis and T4- T5 infectious phlegmon with extension to the left neural foramen causing significant left central spinal canal narrowing. Also showed T1- T7 epidural abscess. He was transferred to [facility] on 03/16 from emergency room. He was found to have MRSA bacteremia, T1- T3 osteomyelitis, C7- T1 epidural phlegmon. He did not undergo surgery on recent admission. It was thought to be due to hematogenous spread of infection and progression of previous infection to osteomyelitis.TTE 03/19 and JEZ 03/23 negative for endocarditis. He was treated with vancomycin and rifampicin. He was discharged on 03/27 to home with IV vancomycin to complete 12 weeks treatment. [facility] ID note states he was discharged on vancomycin ( 03/16 -present) and rifampin but the patient states he is only on vancomycin. He did not have any neurological deficit on recent admission. Blood culture 03/18 MRSA 6 bottles,03/17 1 out of 4 bottles. Blood culture 03/21,03/22 no growth He was giving vancomycin twice daily infusion himself. He gave blood samples yesterday and got a call today stating his kidney function has worsened with creatinine in mid 2's from normal baseline and vancomycin level in 40's and was advised to come to [facility] ED . ID team at [facility] recommended admission and workup for COLEMAN, recommended stopping vancomycin and checking daily vancomycin level. Also recommended switching to IV daptomycin 6 mg per KG once daily once vancomycin level is < 10 Denies fever. He is Eating and drinking as usual. No diarrhea. Patient has chronic history of prostatism symptoms. History of urgency. He had elevated PSA > 10 on prior admission in Dec and was attributed to prostatitis. ED course: Vitals unremarkable. Creatinine 2.23,Na 133, glucose 246, vancomycin random 26.3 Nephrology and ID consulted by ED Review of Systems: Comprehensive review of systems performed, pertinent positives and negative included in history of present illness Allergies Coded Allergies: No Known Allergies (Unverified , 02/20/16) Home Medications Lantus 20 units twice a day lisipro 4-5units 3 times a day with meals Vancomycin 1.75 gm twice a day Patient denies any other medication but discharge medications include atorvastatin 40 mg by mouth daily, rifampicin 300 mg by mouth twice a day PMH Recently recurrent epidural abscess Diabetes insulin-dependent Surgical History C4-T5 MRSA epidural abscess laminectomy and evacuation Right fourth toe amputation Family History Brother diabetic and had CABG at age 51 Younger sister had cardiac disease Mother alive age 81 Father at age 73 due to diabetes complication Social History Hx Alcohol Use: Yes (NONE X3 MONTHS ) Alcoholic Drinks Per Day: 2/WEEK Hx Substance Use: Yes (MARIJUANA) Hx Tobacco Use: No Smoking Status: Never Smoker Exam Vital Signs Vital Sign - Last Date Time Temp Pulse Resp B/P Pulse Ox O2 Delivery O2 Flow Rate FiO2 04/07/17 12:19 36.9 95 16 118/72 97 Room Air Exam Gen. patient is lying comfortably in hospital bed HEENT: Head is normocephalic atraumatic, Pupils equal and reactive, extraocular movements intact, Lungs clear to auscultation bilaterally Heart regular rate and rhythm without murmurs gallops or rubs Abdomen soft nontender without hepatosplenomegaly Extremities pulses are present dorsalis pedis posterior tibialis and radial. tSkin is warm and dry there are no rashes, Psych alert and oriented to person place and time Neuro cranial nerves II through XII are grossly intact.spinal tenderness T3-T5 area,cervical and thoracic spine surgical scar Lymph: There is no lymphadenopathy appreciated in the cervical supra infraclavicular regions : no jimenes Lab and Diagnostics Result Diagram: 04/07/17 1340 Assessment & Plan Grayson Is unfortunate 56-year-old gentleman with past medical history of diabetes, hypertension, recent MRSA bacteremia, MRSA epidural abscess and spinal osteomyelitis currently on IV vancomycin admitted due to COLEMAN # COLEMAN -Possibility due to vancomycin toxicity. Patient on higher dose of vancomycin for better bone penetration. But Patient had completed vancomycin course previously with out any issue. It is possible patient may have inadvertently taken other nephrotoxic medications. Patient does not seem to be on top of his medication list. His discharge summary and recent ID clinic notes state he is discharged on rifampin but patient denies. His recent clinic note also states he is on lisinopril and Lasix but patient denies. -Initial creatinine 2.3, baseline normal -KUB US pending,PSA,UA requested -NS at 150ml/h -Discontinued vancomycin, check level daily # Recent MRSA bacteremia, MRSA epidural abscess, spinal osteomyelitis -Discontinued vancomycin. Plan to switch to IV daptomycin 6 mg per KG once daily once vancomycin level is < 10 -His discharge summary and recent ID clinic notes state he is discharged on rifampin but patient denies. Restart rifampcin -ID consulted by ED -Blood culture requested -Patient continues to have significant spinal tenderness. will consider repeating the MRI after discussing with ID # Hyponatremia -NS as above # Insulin-dependent diabetes -Continue home Lantus 20 bid -a1c requested # Hypertension -Patient on lisinopril per Clinic notes but patient denies. hold BP meds if any Patient admitted under inpatient status with expected length of stay > 2 midnights for severity of present symptoms, complexities of treatment plan and risk for adverse events full code Resuscitation Status: CPR: Attempt Resuscitation Time spent 65 minutes reviewing records and coordinating admission copies to: Gunnar Miranda Melaku MD Apr 07, 2017 16:54
[2017-04-07 17:08] VITALS: BP 143/80; PULSE 78; RESP 18; O2SAT 97
[2017-04-07] MEDS: 0.9% Sodium Chloride 1,000 ML IV SCH (17:20)
--- NOTE | 2017-04-07 17:26 | DRSVH ---
PROCEDURE: US RENAL SONOGRAM INDICATIONS: renal failure TECHNIQUE: Real-time scanning was performed of the kidneys and bladder, with image documentation. COMPARISON: None. FINDINGS: Kidneys: Kidneys are normal in size. Right kidney measures 15.1 cm long; left kidney measures 13.2 cm long. Right renal cortical thickness is 1.5 cm; left renal cortical thickness is 1.7 cm. Renal c ortical echotexture is normal. No hydronephrosis or nephrolithiasis. No suspicious solid mass lesio ns. Bladder: Pre-void bladder volume is 407 mL. Post-void residual is 27 mL. Pre-void images demonstra te no intraluminal masses or stones. On pre-void images, the left ureteral jet is noted with color D oppler interrogation. (Of note, ureteral jets may not be detectable in up to 25% of cases due to ins ufficient differences in specific gravity between ureteral and bladder urine). Miscellaneous: No free pelvic fluid. IMPRESSION: 1. No evidence of hydronephrosis. 2. Kidneys are sonographically normal. Dictated by: Maren Paz MD, PhD on 04/07/2017 at 17:23 Approved by: Maren Paz MD, PhD on 04/07/2017 at 17:25
[2017-04-07 17:29] VITALS: BP 143/80; PULSE 78; RESP 18; O2SAT 97
[2017-04-07] MEDS ORDERED: 0.9% Sodium Chloride 1,000 ML IV ONE (17:30)
[2017-04-07 17:52] VITALS: BP 166/90; PULSE 81; RESP 16; O2SAT 97
[2017-04-07 18:07] LABS: BASOPHILS % (AUTO) 0.2 % (0-3); MONOCYTES % (AUTO) 8.4 % (4-12); Mean Corpuscular Volume 82.9 fL (81-100); NEUTROPHILS % (AUTO) 72.9 % (40-74); Platelet Count 323 bil/L (150-400)
--- NOTE | 2017-04-07 18:10 | NUR ---
admitted to room 1019 fro ER alert, comfortable, pt has no complaints. Gave 1000cc Bolus NS prior to starting NS @ 150cc/hr, VSS
[2017-04-07] MEDS: Insulin LISPRO 300 Unit/3 mL Inj SUBQ SCH ×2 (18:35→22:13)
[2017-04-07 20:00] VITALS: BP 164/84; PULSE 80; RESP 16; O2SAT 97
[2017-04-07] MEDS: Insulin GLARgine 100 Unit/mL Syringe SUBQ SCH ×2 (20:30→21:08)
[2017-04-08] VITALS (8 sets, daily range): BP systolic 133–181; BP diastolic 72–93; PULSE 72–78; RESP 16–19; O2SAT 94–98
[2017-04-08] MEDS: 0.9% Sodium Chloride 1,000 ML IV SCH ×3 (01:39→16:33)
--- NOTE | 2017-04-08 02:54 | NUR ---
Pain Patient c/o back pain 06/10 specifically spine. Hospitalist paged via [email or web address], awaiting response. Patient comforted with additional pillows and position change. Ice chips and Ice bag recently given to "cool" patient off now able to fall back to sleep. Continue plan of care at this time.
[2017-04-08 04:06] LABS: BASOPHILS % (AUTO) 0.2 % (0-3); EOSINOPHILS % (AUTO) 2.5 % (0-5); MONOCYTES % (AUTO) 8.1 % (4-12); Mean Corpuscular Volume 82.9 fL (81-100); NEUTROPHILS % (AUTO) 72.3 % (40-74); Platelet Count 299 bil/L (150-400)
[2017-04-08] MEDS: Insulin GLARgine 100 Unit/mL Syringe SUBQ SCH ×2 (08:36→21:51)
[2017-04-08] MEDS: Insulin LISPRO 300 Unit/3 mL Inj SUBQ SCH ×4 (08:36→21:51)
[2017-04-08] MEDS ORDERED: Sodium Chloride LOK Flush 10 mL Syringe IVFLUSH PRN ×2 (10:40)
[2017-04-08] MEDS: oxyCODONE-Acetamin 5-325 mg Tablet PO PRN ×2 (13:05→17:40)
--- NOTE | 2017-04-08 13:22 | PCM.PNMED ---
Subjective Date of Service Apr 08, 2017 Subjective No new complaints. Afebrile. Continues to have upper back pain which is unchanged from his recent baseline. No extremity weakness or numbness. Exam Vital Signs Vital Sign - Last Date Time Temp Pulse Resp B/P Pulse Ox O2 Delivery O2 Flow Rate FiO2 04/08/17 09:17 36.8 74 19 139/79 96 Room Air Intake and Output 04/07/17 04/07/17 04/08/17 Cumulative From/Thru 15:00 23:00 07:00 04/07/17 12:19 - 04/08/17 02:50 Intake Total 150 ml 150 ml Balance 150 ml 150 ml IV Total 150 ml 150 ml Exam Gen. patient is lying comfortably in hospital bed HEENT: Head is normocephalic atraumatic, Pupils equal and reactive, extraocular movements intact, Lungs clear to auscultation bilaterally Heart regular rate and rhythm without murmurs gallops or rubs Abdomen soft nontender without hepatosplenomegaly Extremities pulses are present dorsalis pedis posterior tibialis and radial. 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 No motor or sensory deficits Lymph: There is no lymphadenopathy appreciated in the cervical supra infraclavicular regions : no jimenes IVs and Medications Medications Reviewed: Medications were reviewed in detail Lab and Diagnostics Result Diagram: 04/08/17 0350 04/08/17 0350 X-Rays, CTs and MRIs PROCEDURE: US RENAL SONOGRAM INDICATIONS: renal failure IMPRESSION: 1. No evidence of hydronephrosis. 2. Kidneys are sonographically normal. Dictated by: Maren Paz MD, PhD on 04/07/2017 at 17:23 Assessment & Plan Grayson Is unfortunate 56-year-old gentleman with past medical history of diabetes, hypertension, recent MRSA bacteremia, MRSA epidural abscess and spinal osteomyelitis currently on IV vancomycin admitted due to COLEMAN # COLEMAN , improving -Possibility due to vancomycin toxicity. Patient on higher dose of vancomycin for better bone penetration. But Patient had completed vancomycin course previously with out any issue. It is possible patient may have inadvertently taken other nephrotoxic medications. Patient does not seem to be on top of his medication list. His discharge summary and recent ID clinic notes state he is discharged on rifampin and vancomycin but patient denies refampcin prescription. His recent clinic note also states he is on lisinopril and Lasix but patient denies. -Initial creatinine 2.3, improved 1.94. Baseline normal -KUB US normal,PSA elevated at 4.7, will need outpatient workup,UA pending -Continue NS at 150ml/h -Discontinued vancomycin, check level daily, Level 23.4 today # Recent MRSA bacteremia, MRSA epidural abscess, spinal osteomyelitis -Discontinued vancomycin. Plan to switch to IV daptomycin 6 mg per KG once daily once vancomycin level is < 10 -His discharge summary and recent ID clinic notes state he is discharged on rifampin but patient denies. Restart rifampcin -ID consulted -Blood culture requested -Patient continues to have significant spinal tenderness. will consider repeating the MRI if any neurological change #Elevated PSA -Unclear significance. Patient had elevated PSA > 10 back in December. He has BPH symptoms.will start Flomax. May need workupof elevated PSA outpatient # Hyponatremia, improving -NS as above # Uncontrolled Insulin-dependent diabetes -Continue home Lantus 20 bid -a1c 11.6. Doubt patient's insulin compliance at home. Patient was inpatient almost half of the last 3-4 months which I would assume he would have better glucose control. # Hypertension -Patient on lisinopril per Clinic notes but patient denies. hold BP meds if any Patient admitted under inpatient status with expected length of stay > 2 midnights for severity of present symptoms, complexities of treatment plan and risk for adverse events full code Disposition: Discharged in 2-3 days on daptomycin and rifampin Resuscitation Status: CPR: Attempt Resuscitation Leonidas Carter MD Apr 08, 2017 13:22
--- NOTE | 2017-04-08 15:10 | CONS ---
[address] [address] CONSULTATION REPORT PATIENT: YUE BURGESS : 1960 MR#: [id number] ADMIT: 04/07/2017 JOB ID: [id number] DATE OF SERVICE: 04/08/2017 INFECTIOUS DISEASE CONSULT: I thank Dr. Carter for this timely consult. REASON FOR CONSULTATION: Vancomycin-induced renal failure in a patient with MRSA osteomyelitis of the spine. HISTORY OF THE PRESENT ILLNESS: The patient is a very complex 56-year-old known to me from an admission about a year ago. During that admission, the patient, who has underlying diabetes, had stepped on a nail and then developed osteomyelitis of his right 2nd toe. Eventually required resection of the toe and then a prolonged course of IV antibiotics for MSSA and osteomyelitis. He got through that therapy without any difficulty and was able to go back to work. More recently, he presented to this hospital in late December with what was thought to be febrile prostatitis. He was eventually found to have a MRSA bacteremia with severe cervical and upper thoracic pain. An MRI scan revealed that he actually had a spinal epidural abscess. The patient was emergently transferred on or about December 30 to [place], where he underwent an extensive laminectomy from C4-T5. This was obviously due to the MRSA and he received a long course of IV vancomycin, followed by some oral Bactrim, which ended around March 01. At the conclusion of that therapy, the patient felt well and was getting close to the point where he thought he could return to work. Unfortunately, within a couple of weeks of finishing his antibiotics he developed increasing and severe back pain, which brought him back to the emergency department again on March 16. At that time an emergent MRI was repeated, and his MRI showed that he had developed T4-5 posterior diskitis with involvement of T4-5 vertebral body and associated osteomyelitis, and there was also an enhancing phlegmon at the T4-5 level with extension through the left neural foramen with cord compression on the left. The radiologists were also concerned about possible epidural enhancement all the way from T1-T7 with possible epidural abscess. The patient was then emergently transferred from the ED here back to [facility]. Blood cultures turned out to be positive during that second admission as well for MRSA, which was clindamycin and daptomycin susceptible. At [facility], he was evaluated by Spine Surgery again, as well as the Infectious Disease service. It was decided not to operate and rather to treat him for about three months for vertebral osteo with associated phlegmon. They carefully examined the patient from a neurologic point of view, and felt he would be stable for this. Subsequently, the patient was discharged home just a week or so ago to receive IV vancomycin through at least May 20, along with oral rifampin 300 t.i.d. During his week or so at home, the home infusion company, [facility], has had a terrible time reaching the patient because they noticed that his vancomycin levels were rapidly increasing. Starting on about Wednesday, they noticed his vancomycin troughs were becoming too high and made many attempts to call him. Eventually, they had to send a nurse to his house to tell him to stop taking the vancomycin which he had been going along taking as per schedule. By the time the vancomycin was finally stopped, a random level was approaching 60 and his creatinine had increased dramatically from his baseline around 0.6 to 2.23. He was directed to go to the emergency department here at [facility]. I had recommended this patient actually probably go back to [facility], as he has a very complex spine infection, which has basically not been cured after one long attempt which included surgery and now has recurred and is quite disabling to the patient. Apparently, [facility] was not able to accommodate the patient though, and they have recommended we admit him here to deal with his vancomycin-induced renal failure. On speaking to the patient, it is also clear he has no idea about the rifampin and has clearly not taken any of it since he was discharged home. The patient tells me he has not had fevers or chills the last few days. He has noticed continual upper back pain and headaches, which he says are closely tied to one another. He has not had a sore throat. He has had a minimal nonproductive cough without anterior chest pain. He denies nausea, vomiting, or diarrhea. He states that his urine output seems to have fallen way off during the days after he left [facility] and was at home taking the vancomycin, and it now seems to be picking up again. He has not had any additional problems with his right foot. PAST MEDICAL HISTORY: 1. Diabetes mellitus. 2. Hyperlipidemia. 3. Hypertension. 4. MSSA osteomyelitis of right foot with resection of 2nd toe in 2016. 5. Spinal epidural abscess, cervical and thoracic, in December 2015, status post laminectomy and prolonged IV antibiotics. 6. Relapsing spine infection with diskitis, vertebral osteo and phlegmon in March 2017. 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 He drinks minimally and does not smoke and has never smoked cigarettes. He lives with his and family [place] of [place]. FAMILY HISTORY: The patient has a negative family history in first and second-degree relatives for TB, though very extensive diabetes family history. REVIEW OF SYSTEMS: The patient has headache and upper back and neck pain, which is quite severe. He denies any visual change. No sore throat. No odynophagia. No enlarged lymph nodes that he is aware of. He has a minimal dry cough but no significant shortness of breath or chest pain. No nausea, vomiting, or diarrhea. He did have decreased urine output for a few days. It is now picking up. No dysuria. No swelling of the joints. He ambulates and gets around with a great deal of trouble due to his back pain. The remainder of the review of systems negative. PHYSICAL EXAMINATION: Reveals an afebrile gentleman. Temp 36.8, pulse 74, respiratory rate 19, blood pressure 139/79, saturating 96% on room air. He is in no acute distress. He is awake and alert. His head without abnormalities or trauma. Eyes without conjunctivitis or scleral icterus. Nose is normal. Oral cavity, no thrush or hairy leukoplakia. Neck is fairly stiff, actually, without supraclavicular or cervical adenopathy. The patient cannot sit up. He can carefully roll over. He has a well-healed incision, which goes from the middle of the thoracic spine down to about T5. The area from about T1-T7 is exquisitely tender to palpation posteriorly. There is no erythema though, nor is there any drainage. Lungs are notable for a few crackles at the bases. Cardiac tones: Regular rate and rhythm without murmur. A benign-appearing PICC line is in the right upper extremity. His abdomen is soft and nontender without organomegaly. He has no suprapubic fullness. He does not have a Singh catheter at this point. His extremities are without evidence of synovitis. His extremities seem well perfused. He has good pulses in his feet though diminished sensation. His right 2nd toe is surgically absent and the scar from where the surgery was done is well healed. Neurologically, he has excellent strength in his lower extremities, 5+/5 bilaterally. He reports no change in his baseline sensation in his lower extremities and has no saddle paresthesias. LABORATORIES: Include white count 11,500. Diff normal. Creatinine 1.94, down from 2.23 yesterday afternoon when he was admitted. LFT are normal. CRP was 13 back in March before he went to [facility]. It has not been repeated here anyway. Procalcitonin 0.08. Urinalysis has not been done on this admission. Hep C and HIV were negative back in January. Micro studies from March include positive blood cultures for MRSA. Note that when he was in the ED on December 29 at the start of this whole process he also had blood cultures positive for MRSA. This appears to be the same organism at least by Biogram. IMAGING: Chest x-ray was done this morning. There is no official radiology report but this x-ray appears relatively benign to me. It is a relatively poor inspiratory effort, so things are a bit crowded. PICC line is present and seems to be in a reasonable position, though I am not an expert in judging that. IMPRESSION: This is an incredibly unfortunate 56-year-old gentleman who was actually in pretty robust health where I first met him a little over a year ago with methicillin-sensitive Staphylococcus aureus osteomyelitis of his right foot. He got over that okay but in late December presented with fever and methicillin-resistant Staphylococcus aureus bacteremia and symptoms of what sounded like prostatitis. He was found to have an extensive spinal epidural abscess, which was treated with laminectomy and a prolonged course of vancomycin, followed by Bactrim. No hardware was placed during that admission. He finished all that treatment about March 01, did okay for a week or two, and then developed much worse back pain. Followup imaging shows he has vertebral osteomyelitis with possible recurrence of epidural abscess and phlegmon. He was transferred back to [facility] for a second time where they had decided to use strictly medical therapy with vancomycin and rifampin. He then went home and seems either not to have been given the rifampin or he never took it in any event. He also was having steady accumulation of vancomycin to the point where he developed renal failure with a tripling of his creatinine, and a random vancomycin level of 57 at the time of readmission yesterday. At this point, his kidneys are not surprisingly starting to improve. The [facility] people have communicated to us that he should be switched to daptomycin, which I think is reasonable, though the data indicates plenty of daptomycin failures for methicillin-resistant Staphylococcus aureus vertebral infections. Other choices here could include ceftaroline or conceivably linezolid, either one, perhaps in combination with rifampin, but daptomycin is not an unreasonable starting point. My concerns about this case are twofold. One is the patient failed a long course of antibiotic therapy from the end of December through almost the end of January. He then quickly relapsed which suggests that he was never really under control or cured. We are now embarking on another multi-week, probably multi-month, course of antibiotics in an attempt to eradicate what is a very recalcitrant infection. The other problem here is that the patient seems not to be a good candidate for home IV therapy at all. He could not be reached by phone for almost four days when the [facility] people were after him regarding his elevated vancomycin troughs and he just continued to take the vancomycin until a readmission was precipitated. He also says no one mentioned a word to him about rifampin and he has never taken any. Though he has no hardware, I agree with [facility] folks that rifampin might be a valuable adjunct here. RECOMMENDATIONS: 1. No more vancomycin. 2. His vancomycin level this morning was still 24, which is certainly therapeutic. I think we can start the daptomycin tomorrow and will start with every other day dosing. This should switch to every day dosing once his _creat clearance is over 30. 3. I would use a dose of about 750 daily in the daptomycin which is a little more than the [facility] recommendations. 4. Rifampin 300 t.i.d. should be added. 5. Will need a baseline CRP to follow. 6. I would keep the patient in house for at least two or three days to make sure all of this is straightened out before he is sent home again with [facility], and I have qualms about any home care given his rather spectacular failure on this occasion. 7. I will be out of town the next three days but back April 12. Should the patient be ready go home before then, let me know, but I anticipate he will probably here on Wednesday and we can strongly consider discharge at that time. SERENITY
--- NOTE | 2017-04-08 15:32 | CONS ---
[address] [address] CONSULTATION REPORT PATIENT: YUE BURGESS : 1960 MR#: [id number] ADMIT: 04/07/2017 JOB ID: [id number] DATE OF SERVICE: 04/08/2017 RENAL CONSULTATION: HISTORY: The patient is a very pleasant 56-year-old, white male, who was admitted to [facility] for vancomycin toxicity and acute kidney injury secondary to vancomycin. He has a longstanding history dating back about seven years of very poorly controlled type 2 diabetes. His diabetes has been complicated by peripheral neuropathy, vascular disease and recurrent infections. He was admitted to [facility] several months ago and was found to have a large epidural abscess, along with osteomyelitis of the vertebral body and one rib. He was transferred to [facility] and underwent a laminectomy with debridement and evacuation. He was subsequently sent to a rehabilitation facility and was continued on IV vancomycin every 12 hours to be scheduled to be completed after 12 weeks. He was also sent home on rifampin. The cultures of the abscess were consistent with MRSA, which subsequently had become culture negative. He recently had some blood studies done and was told that his kidney function was abnormal and his vancomycin level was high. He was advised to go to the hospital. In the emergency department he was found to have a BUN and creatinine which were elevated at 38 and 2.23, with a vancomycin level of 26. His baseline creatinine in the middle of March was 0.7. He denies any history of any prior renal problems. He denies any recent blood in his urine, difficulty with urination, dysuria, hesitancy, or frequency. He denies any arthralgias or any skin rashes or darkening of his urine. Furthermore, he denies a history of any proteinuria, recurrent urinary tract infections, renal lithiasis, history of hepatitis, diabetic or hypertensive renal disease, rheumatoid arthritis, or lupus. He states that he has not had an eye exam in a number of years. Upon admission he was given cautious hydration and the vancomycin was held. This morning his level has dropped down to 23, and his creatinine has decreased to 1.94. Urinalysis has not been obtained. Abdominal ultrasound did not show any evidence of any renal masses, obstruction, or increased echogenicity in either kidney. PAST MEDICAL HISTORY: Significant for poorly controlled insulin-requiring diabetes mellitus with peripheral vascular disease requiring amputation of a toe, diabetic skin lesions and peripheral neuropathy. There is also a recent diagnosis of hypertension. Otherwise, he denies a history of any prior stroke, seizure, asthma, emphysema, coronary artery disease, congestive heart failure, rheumatic fever, thyroid illness, or significant weight change. PAST SURGICAL HISTORY: Significant for epidural abscess evacuation with laminectomy as detailed above and amputation of the right 4th toe. ALLERGIES: He is not allergic to any food or any medication. SOCIAL HISTORY: He states that he does drink ethanol on occasion but has not had any in a number of months. He does use marijuana occasionally. There is no history of any tobacco use. REVIEW OF SYSTEMS: Otherwise, he denies a history of any headache, scotomas, amaurosis fugax, chest pain, shortness of breath, cough, wheezing, orthopnea, lower extremity edema, nausea, vomiting, constipation, diarrhea, or anorexia. MEDICATIONS AT TIME OF ADMISSION: Include vancomycin, rifampin, insulin, oxycodone and IV fluids. PHYSICAL EXAMINATION: Revealed a mildly obese 56-year-old, white male who was alert and oriented x3, in no distress at the time of my evaluation. His blood pressure is 140/86 with a heart rate of 74. HEENT examination is remarkable for pale sclerae. Neck is supple without adenopathy, thyromegaly, or jugular venous distention. Lungs are clear to auscultation. Heart was regular and rhythmical with a soft systolic murmur. Abdomen was soft, without any tenderness, rebound, guarding, masses, or hepatosplenomegaly. Extremities do not show any evidence of any clubbing, cyanosis, or edema. He does appear to have half and half nails. Skin turgor is good. There is no evidence of any rashes. LABORATORY EXAMINATION: This morning his white count is 11.5, hemoglobin of 11.2 with hematocrit of 34.4. Red cell indices, platelet count and differential were normal. Sodium is 139, potassium 4.5, chloride 101, bicarbonate 23, BUN and creatinine were 35 and 1.94. His glucose is 220, and a hemoglobin A1c is 11.6. His PSA is slightly elevated at 4.7. Otherwise, liver function studies are unremarkable. IMPRESSION: 1. Drug-induced acute kidney injury secondary to vancomycin. 2. Diabetic nephropathy. 3. Hypertension with hypertensive heart disease and hypertensive nephrosclerosis. RECOMMENDATION: Obviously, we are holding the vancomycin for now. Dr. Li from infectious disease is seeing the patient and will make recommendations. In the meantime, I would like to start him on lisinopril 5 mg at h.s. for now. I would also like to get an echocardiogram, along with uric acid level and serum protein electrophoresis, along with a hepatitis profile. I would also like to get a urinalysis to assess the protein in his urine. We also need to continue to monitor is vancomycin level. Once again, I would like to thank you for allowing me to participate in the care of this most pleasant but unfortunate patient. I will be following him closely with you.
--- NOTE | 2017-04-08 16:40 | DRSVH ---
PROCEDURE: X-RAY CHEST ONE VIEW ([id number]) INDICATIONS: Catheter tip placement TECHNIQUE: One view of the chest was acquired. COMPARISON: [facility], CR, XR CHEST 1VW (PORTABLE), 03/16/2017, 17:36. FINDINGS: Surgical changes and devices: Right PICC present tip projected over the lower SVC. Lungs and pleura: No pleural effusions or pneumothorax. Lungs are clear. Mediastinum: Mediastinal contours appear normal. Heart size is normal. Bones and chest wall: No suspicious bony lesions. Overlying soft tissues appear unremarkable. IMPRESSION: Right PICC has been placed with tip projected over the lower SVC. Dictated by: Danny Jorge [facility] Interpreted: Maren Paz MD on 04/08/2017 at 13:19 Approved by: Maren Paz MD, PhD on 04/08/2017 at 16:39
--- NOTE | 2017-04-08 18:36 | NUR ---
Pain Pt having back pain 5/10 declines ice or k-pad. Medication orders obtained from MD. Medications given and pt is much more comfortable rating pain 2/10. Neuro check done on pt, equal civilian jail officer, strong pedal pulse. Bed in low, call light in reach, continue q1 hour monitoring.
[2017-04-09] VITALS (7 sets, daily range): BP systolic 108–167; BP diastolic 66–86; PULSE 65–96; RESP 16–20; O2SAT 96–100
--- NOTE | 2017-04-09 03:33 | NUR ---
Pain/activity Pt reported no pain this shift. Slept all shift, waking only during rounds. Pt using urinal at bedside. IV fluid infusing, [employer] on for +MAO. call light within reach. care continues
[2017-04-09] MEDS: 0.9% Sodium Chloride 1,000 ML IV SCH ×2 (05:45→12:00)
[2017-04-09 05:56] LABS: BASOPHILS % (AUTO) 0.2 % (0-3); MONOCYTES % (AUTO) 8.7 % (4-12); Mean Corpuscular Hemoglobin 26.6 pg (27.0-35.0); Mean Corpuscular Volume 82.1 fL (81-100); NEUTROPHILS % (AUTO) 69.1 % (40-74); Platelet Count 289 bil/L (150-400)
[2017-04-09 06:25] LABS: Magnesium 1.9 mg/dL (1.6-2.6)
[2017-04-09] MEDS: Insulin LISPRO 300 Unit/3 mL Inj SUBQ SCH ×4 (08:29→22:00)
[2017-04-09] MEDS: Insulin GLARgine 100 Unit/mL Syringe SUBQ SCH ×2 (08:29→20:46)
[2017-04-09] MEDS: oxyCODONE-Acetamin 5-325 mg Tablet PO PRN ×3 (08:37→20:41)
[2017-04-09 09:51] LABS: APPEARANCE,URINE CLEAR (CLEAR,HAZY); COLOR,URINE YELLOW (YELLOW); OCCULT BLOOD,URINE NEGATIVE (NEGATIVE); UROBILINOGEN,URINE NORMAL (NORMAL)
[2017-04-09 09:52] LABS: YEAST,URINE FEW (NONE SEEN)
--- NOTE | 2017-04-09 11:45 | NUR ---
Social Work: Screening D: EMR reviewed. Pt is a 56 y/o male admitted for renal failure per H&P. SW met with pt at bedside to conduct initial screening Pt was alert and oriented x3. SW explained role and wrote phone number on white board. SW confirmed pt has completed DPOA/advanced directive ppw and encouraged pt to provide a copy to the hospital. Pt's insurance is [facility] and PCP is Gunnar Miranda DO. Pt's primary contact is spouse/DPOA Shiela Cali ([phone]). Pt gave SW verbal consent that spouse can be contacted for discharge planning. Pt lives with spouse in [place]. Pt is independent at baseline. Pt stated that he will provide his own transportation home via POV when he medically stable. MARVIN confirmed that pt is open with [facility] for IVABX - Daptomycin for 12 weeks after discharge. MARVIN confirmed MD orders have been placed for pt to resume IVABX through [facility] at discharge. MARVIN received T/C from Jo-Ann at [facility] requesting access to pt's record. MARVIN granted access. Jo-Ann asked SW to update her at pt's time of discharge. stated that pt will likely discharge 04/11. MARVIN does not anticipate any further discharge needs at this time but will continue to follow if needs arise. A: Pt who is open with [facility] for IVABX - Daptomycin (for 12 weeks) but is otherwise independent at baseline. P: Pt to transport home via POV when medically stable. Pt is currently open with [facility] for IV Dapto for 12 weeks. MARVIN to update Jo-Ann ([phone]) at [facility] when pt is ready to discharge. MARVIN provided access for [facility] 04/09. MARVIN does not anticipate any further discharge needs at this time but will continue to follow if needs arise. Mary Montoya MSW
--- NOTE | 2017-04-09 12:39 | PCM.PNMED ---
Subjective Date of Service Apr 09, 2017 Subjective Back pain controlled. Afebrile. Kidney function continues to improve. Exam Vital Signs Vital Sign - Last Date Time Temp Pulse Resp B/P Pulse Ox O2 Delivery O2 Flow Rate FiO2 04/09/17 08:52 36.8 78 16 167/86 97 Room Air Intake and Output 04/08/17 04/08/17 04/09/17 Cumulative From/Thru 15:00 23:00 07:00 04/07/17 12:19 - 04/09/17 06:25 Intake Total 2877 ml 806 ml 1631 ml 5464 ml Output Total 1225 ml 1900 ml 1400 ml 4525 ml Balance 1652 ml -1094 ml 231 ml 939 ml Intake Oral 400 ml 656 ml 822 ml 1878 ml IV Total 2477 ml 150 ml 809 ml 3586 ml Output Urine Total 1225 ml 1900 ml 1400 ml 4525 ml # Bowel Movements 0 0 0 Exam Gen. patient is lying comfortably in hospital bed HEENT: Head is normocephalic atraumatic, Pupils equal and reactive, extraocular movements intact, Lungs clear to auscultation bilaterally Heart regular rate and rhythm without murmurs gallops or rubs Abdomen soft nontender without hepatosplenomegaly Extremities pulses are present dorsalis pedis posterior tibialis and radial. 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 No motor or sensory deficits Lymph: There is no lymphadenopathy appreciated in the cervical supra infraclavicular regions : no jimenes IVs and Medications Medications Reviewed: Medications were reviewed in detail Lab and Diagnostics Result Diagram: 04/09/17 0504/09/17 0530 X-Rays, CTs and MRIs PROCEDURE: US RENAL SONOGRAM INDICATIONS: renal failure IMPRESSION: 1. No evidence of hydronephrosis. 2. Kidneys are sonographically normal. Dictated by: Maren Paz MD, PhD on 04/07/2017 at 17:23 Assessment & Plan Gr[place] Is unfortunate 56-year-old gentleman with past medical history of diabetes, hypertension, recent MRSA bacteremia, MRSA epidural abscess and spinal osteomyelitis currently on IV vancomycin admitted due to COLEMAN # COLEMAN , improving -Possibility due to vancomycin toxicity. Patient on higher dose of vancomycin for better bone penetration. But Patient had completed vancomycin course previously with out any issue. It is possible patient may have inadvertently taken other nephrotoxic medications. Patient does not seem to be on top of his medication list. His discharge summary and recent ID clinic notes state he is discharged on rifampin and vancomycin but patient denies refampcin prescription. ID PA at also confirms patient was discharged on rifampin. His recent clinic note also states he is on lisinopril and Lasix but patient denies. -Initial creatinine 2.3, improved on 1.79. Baseline normal -KUB US normal,PSA elevated at 4.7, will need outpatient workup,UA pending -Continue NS at 150ml/h -Discontinued vancomycin, check level daily, Level 16.8 today -Urine eosinophils negative # Recent MRSA bacteremia, MRSA epidural abscess, spinal osteomyelitis -Discontinued vancomycin. Plan to switch to IV daptomycin 8 mg per KG once daily once vancomycin level is < 10. Probably tomorrow -His discharge summary and recent ID clinic notes state he is discharged on rifampin and vancomycin but patient was only taking vancomycin. Restarted rifampcin -ID consulted -Blood culture no growth -Patient continues to have significant spinal tenderness. will consider repeating the MRI if any neurological change #Elevated PSA -Unclear significance. Patient had elevated PSA > 10 back in December. He has BPH symptoms.will start Flomax. May need workupof elevated PSA outpatient # Hyponatremia, improving -NS as above # Uncontrolled Insulin-dependent diabetes -Continue home Lantus 20 bid -a1c 11.6. Doubt patient's insulin compliance at home. Patient was inpatient almost half of the last 3-4 months which I would assume he would have better glucose control. # Hypertension -Patient on lisinopril per Clinic notes but patient denies. hold BP meds if any Patient admitted under inpatient status with expected length of stay > 2 midnights for severity of present symptoms, complexities of treatment plan and risk for adverse events full code Disposition: Discharge in 2-3 days on daptomycin and rifampin Resuscitation Status: CPR: Attempt Resuscitation Leonidas Carter MD Apr 09, 2017 12:39
--- NOTE | 2017-04-09 12:42 | PCM.PNNEPH ---
Johanna Acevedo DO 04/09/17 1242: Subjective Date of Service Apr 09, 2017 Subjective No acute events overnight. Patient states that he is overall not feeling well but that he actually feels better than he has. He reports orange colored urine and a sense of urinary urgency when his bladder is full. However he denies dysuria, hematuria, fever, chills, abdominal pain, nausea, vomiting, shortness of breath or chest pain. He does note epigastric tenderness that radiates in a band-like fashion to his thoracic spine. He reports ongoing pain in his back but states that this has improved somewhat. Exam Vital Signs Vital Sign - Last Date Time Temp Pulse Resp B/P Pulse Ox O2 Delivery O2 Flow Rate FiO2 04/09/17 08:52 36.8 78 16 167/86 97 Room Air Intake and Output 04/08/17 04/08/17 04/09/17 Cumulative From/Thru 15:00 23:00 07:00 04/07/17 12:19 - 04/09/17 06:25 Intake Total 2877 ml 806 ml 1631 ml 5464 ml Output Total 1225 ml 1900 ml 1400 ml 4525 ml Balance 1652 ml -1094 ml 231 ml 939 ml Intake Oral 400 ml 656 ml 822 ml 1878 ml IV Total 2477 ml 150 ml 809 ml 3586 ml Output Urine Total 1225 ml 1900 ml 1400 ml 4525 ml # Bowel Movements 0 0 0 Exam General: No acute distress, well-developed, well-nourished, appropriately interactive HEENT: Normocephalic, atraumatic. PERRLA, moist conjunctivae, oral mucosa moist/ pink. Poor dentition Neck: No jugular venous distension, bruits, lymphadenopathy or thyromegaly. Cardiovascular: Regular rate and rhythm with no murmurs, rubs, or gallops appreciated Normal respiratory effort with no use of accessory muscles. Abdomen: Bowel tones present. Soft, nontender, nondistended. No masses appreciated. Extremities: No clubbing, cyanosis, or edema Musculoskeletal: Tenderness to palpation of thoracic spine, no erythema, warmth , well-healed incision of thoracic spine posteriorly. Skin: Normal temperature, turgor, and texture; no rashes or ulcerations. Neurological: No focal deficit. Normal muscle strength, tone, and bulk. Psychiatric: Normal mood and affect. Alert and oriented to person, place, and time. IVs and Medications Medications Reviewed: Medications were reviewed in detail Lab and Diagnostics Laboratory Tests Test 04/09/17 05:30 04/09/17 08:59 White Blood Count 9.6th/mm3 (3.8-10.1) Red Blood Count 4.03mil/mm3 (4.40-5.80) Hemoglobin 10.7g/dL (13.8-17.2) Hematocrit 33.1% (41.0-50.0) Mean Corpuscular Volume 82.1fL (81-100) Mean Corpuscular Hemoglobin 26.6pg (27.0-35.0) Mean Corpuscular Hemoglobin Concent 32.3% (32.0-37.0) Red Cell Distribution Width 13.6% (12.3-15.4) Platelet Count 289bil/L (150-400) Neutrophils (%) (Auto) 69.1% (40-74) Lymphocytes (%) (Auto) 18.8% (14-46) Monocytes (%) (Auto) 8.7% (4-12) Eosinophils (%) (Auto) 3.0% (0-5) Basophils (%) (Auto) 0.2% (0-3) Sodium Level 138mEq/L (134-144) Potassium Level 4.1mEq/L (3.5-5.2) Chloride Level 100mEq/L (97-108) Carbon Dioxide Level 24mmol/L (18-29) Blood Urea Nitrogen 29mg/dL (6-24) Creatinine 1.79mg/dL (0.76-1.27) Estimat Glomerular Filtration Rate 42mL/min (>59) Glucose Level 132mg/dL (60-99) Uric Acid 5.3mg/dL (2.6-7.2) Calcium Level 9.5mg/dL (8.5-10.1) Magnesium Level 1.9mg/dL (1.6-2.6) Total Bilirubin 0.5mg/dL (0.0-1.2) Aspartate Amino Transf (AST/SGOT) 9U/L (0-50) Alanine Aminotransferase (ALT/SGPT) 8U/L (0-44) Alkaline Phosphatase 88U/L (25-150) Total Creatine Kinase 38U/L (21-232) C-Reactive Protein 3.1mg/dL (0.0-0.5) Total Protein 6.3g/dL (6.4-8.4) Albumin 3.3g/dL (3.4-5.0) Random Vancomycin Level 16.8ug/mL Rx Hepatitis C Comment . Urine Color Yellow (YELLOW) Urine Appearance Clear (CLEAR,HAZY) Urine pH 5.0 (5.0-8.0) Urine Specific [place] 1.010 (1.003-1.035) Urine Protein Negativemg/dL (NEG,TRACE) Urine Glucose (UA) Negativemg/dL (NEGATIVE) Urine Ketones Negativemg/dL (NEGATIVE) Urine Occult Blood Negative (NEGATIVE) Urine Nitrite Negative (NEGATIVE) Urine Bilirubin Negative (NEGATIVE) Urine Urobilinogen Normalmg/dL (NORMAL) Urine Leukocyte Esterase Negative (NEGATIVE) Urine RBC 0-2/hpf (0-2) Urine WBC 0-5/hpf (0-5) Urine Epithelial Cells Occasional/hpf (NONE-MOD) Urine Crystals None seen (NONE SEEN) Urine Bacteria None/hpf (NONE-FEW) Urine Hyaline Casts None/lpf (NONE) Urine Granular Casts None seen (NONE SEEN) Urine Waxy Casts None seen (NONE SEEN) Urine Red Blood Cell Casts None seen (NONE SEEN) Urine White Blood Cell Casts None seen (NONE SEEN) Urine Mucus Present (None Seen) Urine Trichomonas None seen (NONE SEEN) Urine Yeast Few (NONE SEEN) Urinalysis Comment None Urine Culture Reflexed Not indicated Urine Random Creatinine 54mg/dL (22-328) Urine Random Total Protein 6mg/dL (0-15) Urine Protein/Creatinine Ratio 0.11 (0-200) Microbiology 04/07/17 Blood Culture - NO GROWTH AFTER 24 HOURS 04/09/17 Eosinophil Smear (BRANDON) - Negative Result Diagram: 04/09/17 0530 04/09/17 0530 X-Rays, CTs and MRIs (04/07/17) US RENAL SONOGRAM IMPRESSION: 1. No evidence of hydronephrosis. 2. Kidneys are sonographically normal. Dictated by: Maren Paz MD, PhD on 04/07/2017 at 17:23 (04/08/17) X-RAY CHEST ONE VIEW IMPRESSION: Right PICC has been placed with tip projected over the lower SVC. Interpreted and approved by: Maren Paz MD on 04/08/2017 at 13:19 . Plan Impression 56-year-old male with a history of poorly controlled diabetes type 2, peripheral neuropathy, hypertension, MRSA bacteremia, and epidural abscess status post laminectomy with recurrent spine infection and prolonged IV antibiotics including home infusions of vancomycin prior to admission. He presented to the ED after he was told his vancomycin level was too high. Nephrology consulted for further evaluation and management of drug-induced acute kidney injury secondary to vancomycin. 1. Drug-induced acute kidney injury secondary to vancomycin. 2. Poorly controlled diabetes mellitus type 2 with diabetic nephropathy 3. Hypertension with hypertensive nephrosclerosis 4. Recent MRSA bacteremia, MRSA epidural abscess, spinal osteomyelitis Plan: -Vancomycin level is trending down and renal function is improving. Will continue to monitor -Continue lisinopril 5mg daily in the evening. BP slightly elevated this morning. Will consider increasing lisinopril to 10mg if patient remains hypertensive and renal function continues to improve. -Uric acid level, serum protein electrophoresis and urinalysis are pending as is a hepatitis panel -Blood cultures with not growth thus far. -Antibiotics per Infectious disease, rifampin and daptomycin. Brett Oropeza DO 04/09/17 1342: Exam Lab and Diagnostics Result Diagram: 04/09/17 0530 04/09/17 0530 Plan Plan: Patient was seen and examined along with the internal medicine resident. His renal function continues to improve as his vancomycin level continues to decrease. I have reviewed the note and agree with the plan. Johanna Acevedo DO Apr 09, 2017 12:42 Brett Oropeza DO Apr 09, 2017 13:42
--- NOTE | 2017-04-09 15:25 | NUR ---
ACTIVITY Patient complained of back pain. Rating it as 4/10. He also complains of chest tightness at times, which is not new per patient. Dr. Vallejo was at the bedside and was aware of this. Percocet 1 tab PO administered for complaints of pain, which was helpful. Tolerating liquids PO and his diet well. Denies nausea. No emesis noted. Denies SOB. Ambulated to the bathroom with SBA. Patient tolerated activity fairly. BUE/BLE has equal strength. Denies numbness/tingling. Voiding without any issues noted.
[2017-04-10] MEDS: 0.9% Sodium Chloride 1,000 ML IV SCH (01:25)
[2017-04-10 02:09] LABS: Hepatitis A Antibody IgM Negative (Negative); Hepatitis B Core Antibody IgM Negative (Negative)
--- NOTE | 2017-04-10 04:14 | NUR ---
pain pt has taken percocet twice this shift for back pain, that he says radiates to his chest. pt states the chest pain isn't new that it is a tightness that he has had since his back surgery. pt has slept most of the night. his pain appears well controlled and pt states that he feels "a bit better" this morning. care continues.
[2017-04-10] MEDS: oxyCODONE-Acetamin 5-325 mg Tablet PO PRN ×4 (04:29→22:30)
[2017-04-10 04:30] VITALS: BP 159/88; PULSE 75; RESP 18; O2SAT 97
[2017-04-10 09:06] LABS: BASOPHILS % (AUTO) 0.2 % (0-3); EOSINOPHILS % (AUTO) 3.4 % (0-5); MONOCYTES % (AUTO) 6.3 % (4-12); Mean Corpuscular Hemoglobin 27.1 pg (27.0-35.0); Mean Corpuscular Volume 82.3 fL (81-100); NEUTROPHILS % (AUTO) 69.4 % (40-74); Platelet Count 275 bil/L (150-400)
[2017-04-10] MEDS: Insulin LISPRO 300 Unit/3 mL Inj SUBQ SCH ×4 (10:18→22:30)
[2017-04-10] MEDS: Insulin GLARgine 100 Unit/mL Syringe SUBQ SCH ×2 (10:19→22:28)
[2017-04-10] MEDS: DAPTOmycin Inj 750 MG in 0.9% Sodium Chloride 50 ML IV SCH (10:19)
--- NOTE | 2017-04-10 12:23 | PCM.PNMED ---
Subjective Date of Service Apr 10, 2017 Subjective no new complaints Exam Vital Signs Vital Sign - Last Date Time Temp Pulse Resp B/P Pulse Ox O2 Delivery O2 Flow Rate FiO2 04/10/17 04:30 36.7 75 18 159/88 97 Room Air Intake and Output 04/09/17 04/09/17 04/10/17 Cumulative From/Thru 14:59 22:59 06:59 04/07/17 12:19 - 04/10/17 06:46 Intake Total 2238 ml 600 ml 8302 ml Output Total 1800 ml 1200 ml 7525 ml Balance 438 ml -600 ml 777 ml Intake Oral 1402 ml 600 ml 3880 ml IV Total 836 ml 4422 ml Output Urine Total 1800 ml 1200 ml 7525 ml # Bowel Movements 0 0 Exam Gen. patient is lying comfortably in hospital bed HEENT: Head is normocephalic atraumatic, Pupils equal and reactive, extraocular movements intact, Lungs clear to auscultation bilaterally Heart regular rate and rhythm without murmurs gallops or rubs Abdomen soft nontender without hepatosplenomegaly Extremities pulses are present dorsalis pedis posterior tibialis and radial. 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 No motor or sensory deficits Lymph: There is no lymphadenopathy appreciated in the cervical supra infraclavicular regions : no jimenes IVs and Medications Medications Reviewed: Medications were reviewed in detail Lab and Diagnostics Result Diagram: 04/10/17 0842 04/10/17 0842 X-Rays, CTs and MRIs (04/07/17) US RENAL SONOGRAM IMPRESSION: 1. No evidence of hydronephrosis. 2. Kidneys are sonographically normal. Dictated by: Maren Paz MD, PhD on 04/07/2017 at 17:23 (04/08/17) X-RAY CHEST ONE VIEW IMPRESSION: Right PICC has been placed with tip projected over the lower SVC. Interpreted and approved by: Maren Paz MD on 04/08/2017 at 13:19 . Assessment & Plan Gr[place] Is unfortunate 56-year-old gentleman with past medical history of diabetes, hypertension, recent MRSA bacteremia, MRSA epidural abscess and spinal osteomyelitis currently on IV vancomycin admitted due to COLEMAN # COLEMAN , improving -Possibility due to vancomycin toxicity. Patient on higher dose of vancomycin for better bone penetration. But Patient had completed vancomycin course previously with out any issue. It is possible patient may have inadvertently taken other nephrotoxic medications. Patient does not seem to be on top of his medication list. His discharge summary and recent ID clinic notes state he is discharged on rifampin and vancomycin but patient denies refampcin prescription. ID PA at also confirms patient was discharged on rifampin. His recent clinic note also states he is on lisinopril and Lasix but patient denies. -Initial creatinine 2.3, improved on 1.75. Baseline normal -KUB US normal,PSA elevated at 4.7, will need outpatient workup,UA unremarkable -Discontinued IV fluids today 04/10 -Discontinued vancomycin, check level daily, Level 16.8 today -Urine eosinophils negative # Recent MRSA bacteremia, MRSA epidural abscess, spinal osteomyelitis -Discontinued vancomycin. We will start IV daptomycin 8 mg per KG once daily today. -His discharge summary and recent ID clinic notes state he is discharged on rifampin and vancomycin but patient was only taking vancomycin. Restarted rifampcin -ID consulted -Blood culture no growth -Patient continues to have significant spinal tenderness. will consider repeating the MRI if any neurological change #Elevated PSA -Unclear significance. Patient had elevated PSA > 10 back in December. He has BPH symptoms.will start Flomax. May need workupof elevated PSA outpatient # Hyponatremia, improving -NS as above # Uncontrolled Insulin-dependent diabetes -Continue home Lantus 20 bid -a1c 11.6. Doubt patient's insulin compliance at home. Patient was inpatient almost half of the last 3-4 months which I would assume he would have better glucose control. # Hypertension -Patient on lisinopril per Clinic notes but patient denies. hold BP meds if any Patient admitted under inpatient status with expected length of stay > 2 midnights for severity of present symptoms, complexities of treatment plan and risk for adverse events full code Disposition: Discharge in 2-3 days on daptomycin and rifampin . kidney function needs to be monitored for 24-48 hours on daptomycin( his new abx ) VTE Mechanical Devices: Intermittant Pneumatic CD Resuscitation Status: CPR: Attempt Resuscitation Leonidas Carter MD Apr 10, 2017 12:23
[2017-04-10 14:29] VITALS: BP 129/74; PULSE 82; RESP 16; O2SAT 96
--- NOTE | 2017-04-10 18:24 | NUR ---
Activity Pt having continuing back pain 4-03/10. Percocet works well, pt declines heat or ice for pain. Denies any nausea, tolerating all meals. Frequently napping in room. Up independently. Extremities have equal strength, continuing qshift neuro checks, nothing abnormal noted. Bed in low, call light in reach, continue Q1hour rounding.
[2017-04-10 20:06] VITALS: BP 130/69; PULSE 76; RESP 18; O2SAT 96
[2017-04-11 05:34] VITALS: BP 100/62; PULSE 67; RESP 16; O2SAT 96
[2017-04-11] MEDS: 0.9% Sodium Chloride 1,000 ML IV SCH ×2 (08:43→12:42)
[2017-04-11] MEDS: Insulin GLARgine 100 Unit/mL Syringe SUBQ SCH ×2 (08:46→21:53)
[2017-04-11] MEDS: Insulin LISPRO 300 Unit/3 mL Inj SUBQ SCH ×4 (08:47→21:54)
[2017-04-11] MEDS: oxyCODONE-Acetamin 5-325 mg Tablet PO PRN ×3 (09:17→22:07)
[2017-04-11 11:05] VITALS: BP 126/73; PULSE 73; RESP 17; O2SAT 95
--- NOTE | 2017-04-11 11:53 | PCM.PNNEPH ---
Subjective Date of Service Apr 11, 2017 Subjective Patient continues to do well. He did have a slight increase in his creatinine but overall he has doing better. He denies any headache, chest pain, shortness of breath, or vomiting. His blood pressures have ranged between Exam Vital Signs Vital Sign - Last Date Time Temp Pulse Resp B/P Pulse Ox O2 Delivery O2 Flow Rate FiO2 04/11/17 11:05 36.6 73 17 126/73 95 Room Air Intake and Output 04/10/17 04/10/17 04/11/17 Cumulative From/Thru 15:00 23:00 07:00 04/07/17 12:19 - 04/11/17 06:51 Intake Total 1413 ml 796 ml 760 ml 59264 ml Output Total 1620 ml 1550 ml 91717 ml Balance 1413 ml -824 ml -790 ml 576 ml Intake Oral 796 ml 760 ml 5436 ml IV Total 1413 ml 5835 ml Output Urine Total 1620 ml 1550 ml 45958 ml # Bowel Movements 1 1 Exam Neck is supple without adenopathy, thyromegaly, or jugular venous distention. Lungs are clear to auscultation. Heart is regular and rhythmic with a small systolic murmur. Abdomen soft without any tenderness or rebound guarding masses or hepatosplenomegaly. Extremities did not show any evidence of any clubbing, cyanosis, or edema. Lab and Diagnostics Result Diagram: 04/10/17 0842 04/11/17 0310 X-Rays, CTs and MRIs (04/07/17) US RENAL SONOGRAM IMPRESSION: 1. No evidence of hydronephrosis. 2. Kidneys are sonographically normal. Dictated by: Maren Paz MD, PhD on 04/07/2017 at 17:23 (04/08/17) X-RAY CHEST ONE VIEW IMPRESSION: Right PICC has been placed with tip projected over the lower SVC. Interpreted and approved by: Maren Paz MD on 04/08/2017 at 13:19 . Plan Impression Impression #1 drug induced acute kidney injury secondary to vancomycin which appears to be resolving #2 baseline diabetic nephropathy #3 hypertension with hypertensive heart disease and hypertensive nephrosclerosis. Recommendations #1 I would like to continue him on his current therapy and continue to monitor his lab values. Brett Oropeza DO Apr 11, 2017 11:53
--- NOTE | 2017-04-11 13:04 | PCM.PNMED ---
Subjective Date of Service Apr 11, 2017 Subjective 1 OUT OF 2 blood cultures growing gram-positive coccus. Afebrile. Kidney function unchanged from yesterday Exam Vital Signs Vital Sign - Last Date Time Temp Pulse Resp B/P Pulse Ox O2 Delivery O2 Flow Rate FiO2 04/11/17 11:05 36.6 73 17 126/73 95 Room Air Intake and Output 04/10/17 04/10/17 04/11/17 Cumulative From/Thru 15:00 23:00 07:00 04/07/17 12:19 - 04/11/17 06:51 Intake Total 1413 ml 796 ml 760 ml 86238 ml Output Total 1620 ml 1550 ml 95399 ml Balance 1413 ml -824 ml -790 ml 576 ml Intake Oral 796 ml 760 ml 5436 ml IV Total 1413 ml 5835 ml Output Urine Total 1620 ml 1550 ml 13742 ml # Bowel Movements 1 1 Exam Gen. patient is lying comfortably in hospital bed HEENT: Head is normocephalic atraumatic, Pupils equal and reactive, extraocular movements intact, Lungs clear to auscultation bilaterally Heart regular rate and rhythm without murmurs gallops or rubs Abdomen soft nontender without hepatosplenomegaly Extremities pulses are present dorsalis pedis posterior tibialis and radial. 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 No motor or sensory deficits Lymph: There is no lymphadenopathy appreciated in the cervical supra infraclavicular regions : no jimenes IVs and Medications Medications Reviewed: Medications were reviewed in detail Lab and Diagnostics Result Diagram: 04/10/17 0842 04/11/17 0310 X-Rays, CTs and MRIs (04/07/17) US RENAL SONOGRAM IMPRESSION: 1. No evidence of hydronephrosis. 2. Kidneys are sonographically normal. Dictated by: Maren Paz MD, PhD on 04/07/2017 at 17:23 (04/08/17) X-RAY CHEST ONE VIEW IMPRESSION: Right PICC has been placed with tip projected over the lower SVC. Interpreted and approved by: Maren Paz MD on 04/08/2017 at 13:19 . Assessment & Plan Gr[place] Is unfortunate 56-year-old gentleman with past medical of diabetes, hypertension, recent MRSA bacteremia, MRSA epidural abscess and spinal osteomyelitis currently on IV vancomycin admitted due to COLEMAN # COLEMAN , improving - due to vancomycin toxicity. Patient relatively on higher dose of vancomycin . But Patient had completed vancomycin course previously with out any issue. It is possible patient may have inadvertently taken other nephrotoxic medications. Patient does not seem to be on top of his medication list. His discharge summary and recent ID clinic notes state he is discharged on rifampin and vancomycin but patient denies refampcin prescription. ID PA at also confirms patient was discharged on rifampin. His recent clinic note also states he is on lisinopril and Lasix but patient denies. -Initial creatinine 2.3, improved on 1.85. Baseline normal -KUB US normal,PSA elevated at 4.7, will need outpatient workup,UA unremarkable -Discontinued IV fluids 04/10, restarted 04/11 -Discontinued vancomycin, -Urine eosinophils negative # Recent MRSA bacteremia, MRSA epidural abscess, spinal osteomyelitis -Discontinued vancomycin. started IV daptomycin 8 mg per KG once daily today and rifampin -ID consulted -Blood culture 1 out of 2 growing gram-positive coccus. Awaiting speciation. If it is MRSA we will need to repeat imaging of spine and probably transfer him [facility] to [facility]. -Patient continues to have significant spinal tenderness. will consider repeating the MRI if any neurological change #Elevated PSA -Unclear significance. Patient had elevated PSA > 10 back in December. He has BPH symptoms.will start Flomax. May need workupof elevated PSA outpatient # Hyponatremia, improving -NS as above # Uncontrolled Insulin-dependent diabetes -Continue home Lantus 20 bid -a1c 11.6. Doubt patient's insulin compliance at home. Patient was inpatient almost half of the last 3-4 months which I would assume he would have better glucose control. # Hypertension -Patient on lisinopril per Clinic notes but patient denies. hold BP meds if any Patient admitted under inpatient status with expected length of stay > 2 midnights for severity of present symptoms, complexities of treatment plan and risk for adverse events full code Disposition: Discharge in 2-3 days on daptomycin and rifampin if blood cultures is contaminant VTE Mechanical Devices: Intermittant Pneumatic CD Resuscitation Status: CPR: Attempt Resuscitation Leonidas Carter MD Apr 11, 2017 13:04
--- NOTE | 2017-04-11 15:31 | NUR ---
Social Work: Readiness for Discharge D: EMR reviewed. Pt is on day 4 of hospitalization for renal failure per H&P. Pt is not medically ready for discharge at this time. continues to monitor pt's kidney function. MARVIN confirmed that pt is open with [facility] for IVABX - prior to admission pt was receiving Vancomycin. At discharge, pt will discharge on Daptomycin pending ID. [facility] continues to follow pt. MARVIN to update [facility] at pt's time of discharge. MARVIN does not anticipate any further discharge needs at this time but will continue to follow if needs arise. A: Pt who is open with [facility] for IVABX and will require Daptomycin at discharge but is otherwise independent at baseline. P: Pt to transport home via POV when medically stable. Pt will discharge with [facility] for IV Daptomycin. MARVIN to update Jo-Ann ([phone]) at [facility] when pt is ready to discharge. MARVIN does not anticipate any further discharge needs at this time but will continue to follow if needs arise. Adrianna Ruvalcaba, [employer]
[2017-04-11 16:28] VITALS: BP 166/87; PULSE 74; RESP 17; O2SAT 97
--- NOTE | 2017-04-11 19:22 | NUR ---
Activity Pain well controlled during shift 2-02/08, pt needed less medication than previous shift. Pt having some new right hand tremor that he states he has had before, but not since admitted. aware and no new orders. Pt's mood is slightly depressed and worried about positive blood culture and possibility that he might be sent to [place] if more BC come back positive. Encouraged pt to not stress until results are known tomorrow. Bed in low, call light in reach, continue to monitor.
[2017-04-11 20:50] VITALS: BP 149/81; PULSE 74; RESP 22; O2SAT 95
--- NOTE | 2017-04-12 03:51 | NUR ---
Plan of care Patient tolerating RA, Independent in room, and eating diabetic consistent carbs. NS @75mLs/hr. c/o pain single time this shift, pain management effective. Denies SOB, and abdominal pain. Bed in low position, call light within reach and intentional rounding.
[2017-04-12 05:36] VITALS: BP 127/70; PULSE 67; RESP 18; O2SAT 94
[2017-04-12 05:48] LABS: BASOPHILS % (AUTO) 0.2 % (0-3); EOSINOPHILS % (AUTO) 4.1 % (0-5); MONOCYTES % (AUTO) 6.8 % (4-12); Mean Corpuscular Hemoglobin 26.5 pg (27.0-35.0); Mean Corpuscular Volume 82.5 fL (81-100); NEUTROPHILS % (AUTO) 63.1 % (40-74); Platelet Count 291 bil/L (150-400)
[2017-04-12] MEDS: Insulin LISPRO 300 Unit/3 mL Inj SUBQ SCH (08:00)
[2017-04-12] MEDS: Insulin GLARgine 100 Unit/mL Syringe SUBQ SCH ×2 (09:45→21:33)
[2017-04-12] MEDS: DAPTOmycin Inj 750 MG in 0.9% Sodium Chloride 50 ML IV SCH (10:29)
[2017-04-12 10:46] VITALS: BP 137/78; PULSE 71; RESP 20; O2SAT 97
[2017-04-12] MEDS: Insulin LISPRO High-Dose Scale SUBQ SCH ×3 (12:13→21:32)
[2017-04-12] MEDS: oxyCODONE-Acetamin 5-325 mg Tablet PO PRN ×2 (12:13→16:59)
--- NOTE | 2017-04-12 13:04 | PCM.PNMED ---
Subjective Date of Service Apr 12, 2017 Subjective pt c/o hiccup intermittently but no problem of eating, denied n/v still has sore back but controlled, living with , not using social research assistant device when walking understood possible transfer awaits BCX Exam Vital Signs Vital Sign - Last Date Time Temp Pulse Resp B/P Pulse Ox O2 Delivery O2 Flow Rate FiO2 04/12/17 05:36 36.7 67 18 127/70 94 Room Air Intake and Output 04/11/17 04/11/17 04/12/17 Cumulative From/Thru 15:00 23:00 07:00 04/07/17 12:19 - 04/11/17 21:57 Intake Total 676 ml 85676 ml Output Total 11028 ml Balance 676 ml 1252 ml Intake Oral 5436 ml IV Total 676 ml 6511 ml Output Urine Total 99425 ml # Bowel Movements 1 Exam NAD, comfortably laying down on the bed no JVD, MMM, no LAD RRR, nl s1, s2 no mrg CTAB, no w,c S,ND,NT,normoactive BS+ warm, no edema, pulses 2/2 back: mildly tender grossly on Tspines, IVs and Medications Medications Reviewed: Medications were reviewed in detail Lab and Diagnostics Result Diagram: 04/12/1751404/12/17514 X-Rays, CTs and MRIs (04/07/17) US RENAL SONOGRAM IMPRESSION: 1. No evidence of hydronephrosis. 2. Kidneys are sonographically normal. Dictated by: Maren Paz MD, PhD on 04/07/2017 at 17:23 (04/08/17) X-RAY CHEST ONE VIEW IMPRESSION: Right PICC has been placed with tip projected over the lower SVC. Interpreted and approved by: Maren Paz MD on 04/08/2017 at 13:19 . Assessment & Plan Grayson Is unfortunate 56-year-old gentleman with past medical of diabetes, hypertension, recent MRSA bacteremia, MRSA epidural abscess and spinal osteomyelitis currently on IV vancomycin admitted due to COLEMAN # COLEMAN, POA, due to vancomycin toxicity. Patient relatively on higher dose of vancomycin . But Patient had completed vancomycin course previously with out any issue. It is possible patient may have inadvertently taken other nephrotoxic medications. Patient does not seem to be on top of his medication list. His discharge summary and recent ID clinic notes state he is discharged on rifampin and vancomycin but patient denies refampcin prescription. ID PA at also confirms patient was discharged on rifampin. His recent clinic note also states he is on lisinopril and Lasix but patient denies. -Initial creatinine 2.3, further improving but not at baseline yet -KUB US normal,PSA elevated at 4.7, will need outpatient workup,UA unremarkable -Discontinued IV fluids 04/10, restarted 04/11 -Discontinued vancomycin, -Urine eosinophils negative # Recent MRSA bacteremia, MRSA epidural abscess, spinal osteomyelitis -Discontinued vancomycin. started IV daptomycin 8 mg per KG once 04/10, rifampin -ID consulted, appreciate FU -Blood culture 1 out of 3 growing gram-positive coccus. Awaiting speciation. If it is MRSA we will need to repeat imaging of spine and probably transfer him back to [facility]. -Patient continues to have significant spinal tenderness. will consider repeating the MRI if any neurological change #Elevated PSA -Unclear significance. Patient had elevated PSA > 10 back in December. He has BPH symptoms.will start Flomax. May need workupof elevated PSA outpatient # Hyponatremia, improving -NS as above # Uncontrolled Insulin-dependent diabetes -Continue home Lantus 20 bid -a1c 11.6. Doubt patient's insulin compliance at home. Patient was inpatient almost half of the last 3-4 months which I would assume he would have better glucose control. # Hypertension -Patient on lisinopril per Clinic notes but patient denies. hold BP meds if any Patient admitted under inpatient status with expected length of stay > 2 midnights for severity of present symptoms, complexities of treatment plan and risk for adverse events full code Disposition: Discharge in 2-3 days on daptomycin and rifampin if blood cultures is contaminant VTE Mechanical Devices: Intermittant Pneumatic CD Resuscitation Status: CPR: Attempt Resuscitation Time spent 35min Hermelinda Ledesma MD Apr 12, 2017 08:56
--- NOTE | 2017-04-12 13:43 | PCM.PNMED ---
Subjective Date of Service Apr 12, 2017 Subjective Nephrology Progress Note Patient reports that he is tired today but otherwise feeling well. He denies fever, chills, nausea, vomiting, abdominal pain, chest pain, shortness of breath. He did have significant sweating last night. Exam Vital Signs Vital Sign - Last Date Time Temp Pulse Resp B/P Pulse Ox O2 Delivery O2 Flow Rate FiO2 04/12/17 10:46 36.7 71 20 137/78 97 Room Air Intake and Output 04/11/17 04/11/17 04/12/17 Cumulative From/Thru 15:00 23:00 07:00 04/07/17 12:19 - 04/11/17 21:57 Intake Total 676 ml 43262 ml Output Total 91346 ml Balance 676 ml 1252 ml Intake Oral 5436 ml IV Total 676 ml 6511 ml Output Urine Total 23084 ml # Bowel Movements 1 Exam Neck is supple without adenopathy, thyromegaly, or jugular venous distention. Lungs are clear to auscultation throughout all lung lerma. Heart is regular and rhythm with no murmur appreciated. Abdomen soft without any tenderness, slow bowel tones noted. Extremities did not show any evidence of any clubbing, cyanosis, or edema. Pulses were present and equivalent in the radial and dorsalis pedis locations. IVs and Medications Medications Reviewed: Medications were reviewed in detail Lab and Diagnostics Result Diagram: 04/12/1751404/12/17514 Assessment & Plan Patient is a 56 year old male with a history of type 2 DM, HTN, MRSA infection ( bacteremia, epidural abscess and osteomyelitis). He was on an extended course of IV vancomycin and presented to [facility] with COLEMAN. Hospital day # 6 1) Drug induced acute kidney injury, improving. - Continue to avoid nephrotoxic medications as much as possible. - Continue to follow creatinine with daily BMP. - Recommend outpatient follow up with Dr. Oropeza about two weeks after discharge. 2) Diabetic nephropathy, chronic. - A1c 11.6 this admission indicating poorly controlled diabetes. - Patient will need close outpatient follow up with PCP and possible endocrinology referral to gain better control of his diabetes. 3) Hypertension, chronic. - With likely hypertensive heart disease and hypertensive nephrosclerosis. - Continue lisinopril 5 mg daily. - Recommend outpatient follow up with Dr. Oropeza about two weeks after discharge. Thank you for consultation of this interesting and unfortunate patient. At this time the nephrology service will sign off. If any other questions arise, don't hesitate to call. Patient was seen and examined. Case discussed with resident. Agreed with assessment and plan as above. Dennis Brooke MD Pg [phone] VTE Mechanical Devices: Intermittant Pneumatic CD Resuscitation Status: CPR: Attempt Resuscitation April Costello DO Apr 12, 2017 13:43 Caesar Mg MD Apr 12, 2017 18:47
[2017-04-12] MEDS: 0.9% Sodium Chloride 1,000 ML IV SCH ×2 (17:01→23:05)
[2017-04-12 17:15] VITALS: BP 161/85; PULSE 67; RESP 18; O2SAT 97
--- NOTE | 2017-04-12 18:28 | NUR ---
Pain- Patient has had intermittent chest wall discomfort that increases when he takes in a deep breath, that he says he has had since his surgery. Percocet effective for most of discomfort. Up at bedside. Sleeping off and on.
[2017-04-12 19:57] VITALS: BP 146/70; PULSE 69; RESP 18; O2SAT 96
--- NOTE | 2017-04-12 19:58 | PROG NOTE ---
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 INTERVAL HISTORY: Recall that this is the very complex, 56-year-old gentleman who was admitted here because of renal injury due to excessive vancomycin dosing as part of a treatment plan out of [facility] for spinal osteomyelitis. The patient was admitted back on the after it was found that he had very high Vanco trough levels and worsening renal insufficiency. At the time he was admitted on the , some blood cultures were done and, quite surprisingly, one blood culture is now positive for what appears to be Staph aureus. This is surprising because he was treated very aggressively at [facility] and then was discharged home to receive doses of vancomycin which, of course, eventually turned out to be too high. Despite having very high blood levels simultaneously with the blood cultures done on the , there was nonetheless at least one bottle which was positive for Staph aureus. Also on a worrisome note, the patient reports that last night for the first time in a while he had subjective fevers and sweats. There is no elevated temperature noted in the chart, but he said he had subjective fever followed by drenching sweat which is unusual for him. He says he is not having any respiratory problems, no cough, no shortness of breath, no chest pain. No nausea, vomiting, or diarrhea. He still has a great deal of upper back pain. He denies any problems with his PICC line. PHYSICAL EXAMINATION: Reveals an afebrile gentleman, temperature 36.7, pulse 71, respiratory rate 20, blood pressure 137/78. He is saturating well on room air. He appears a bit tired but nontoxic. Eyes without conjunctival hemorrhage. Oral cavity negative. Lungs fairly clear. Back tenderness quite notable and without change from what I saw back on April 08 when I first saw this patient on this admission. Cardiac tones: Regular rate and rhythm without murmur. The right upper extremity PICC line appears benign. There is no swelling of the arm and no skin rash. LABORATORIES: Include a white count of 11,500 back on the ; that is now down to 8000 today with a normal differential. Platelets are okay at 291. Creatinine has come down a bit to 176 where he started at 2.23 in the ED on April 07. LFTs are normal. Urinalysis without white cells. Hepatitis B and C are negative. Micro studies include the 1/4 bottles positive for Staph aureus from the . This is quite remarkable as simultaneous Vanco level was 26. A MRSA screen of the nares was negative. IMPRESSION: This is a complex patient with staph aureus osteomyelitis of the spine which occurred just after therapy for a spinal epidural abscess and concluded. Recall that the patient did not take the rifampin he was supposed to be on when he was at home with vancomycin but, nonetheless, it is worrisome that he is having breakthrough positive blood cultures despite very high levels of vancomycin. This suggests that perhaps there is inadequate source control in his back if he has blood cultures a couple of weeks into very aggressive and, in fact, almost excessive Vanco concentrations. RECOMMENDATIONS: 1. Will continue on the daptomycin and rifampin he is receiving now. Repeat blood cultures are being drawn today from the skin as well as from the PICC. 2. Will continue to follow this patient with you, but at this point, I do not see him as a candidate for discharge right yet given his positive blood cultures. 3. If positive blood cultures continue, we will need to contact [facility] and see if they wish to take him back and consider additional surgical interventions.
--- NOTE | 2017-04-13 01:53 | NUR ---
Pain Patient has not c/o of intolerable pain this shift, able to sleep comfortably. All care consolidated to optimize sleep per patient request for sleep. PICC line patent. Intentional rounding, will continue to monitor.
[2017-04-13 04:40] VITALS: BP 127/75; PULSE 71; RESP 16; O2SAT 97
[2017-04-13] MEDS: 0.9% Sodium Chloride 1,000 ML IV SCH ×2 (05:42→21:42)
[2017-04-13] MEDS: Insulin LISPRO High-Dose Scale SUBQ SCH ×4 (08:00→21:41)
[2017-04-13] MEDS: Insulin GLARgine 100 Unit/mL Syringe SUBQ SCH ×2 (08:30→21:40)
--- NOTE | 2017-04-13 10:58 | PCM.PNMED ---
Subjective Date of Service Apr 13, 2017 Subjective BCX 04/07 grew MRSA pt is clinicaly stable, no neurologic deficit, explained possible transfer for surgical eval, pt agreed BCX 2sets sent from ID 04/12 ngtd Exam Vital Signs Vital Sign - Last Date Time Temp Pulse Resp B/P Pulse Ox O2 Delivery O2 Flow Rate FiO2 04/13/17 04:40 36.6 71 16 127/75 97 Room Air Intake and Output 04/12/17 04/12/17 04/13/17 Cumulative From/Thru 15:00 23:00 07:00 04/07/17 12:19 - 04/13/17 06:15 Intake Total 972 ml 1081 ml 1534 ml 56880 ml Output Total 1975 ml 1370 ml 84942 ml Balance -1003 ml 1081 ml 164 ml 1494 ml Intake Oral 972 ml 636 ml 7044 ml IV Total 1081 ml 898 ml 8490 ml Output Urine Total 1975 ml 1370 ml 87507 ml # Voids 3 3 # Bowel Movements 0 0 1 Exam NAD, comfortably laying down on the bed no JVD, MMM, no LAD RRR, nl s1, s2 no mrg CTAB, no w,c S,ND,NT,normoactive BS+ warm, no edema, pulses 2/2 back: mildly tender grossly on Tspines throughout, neuro: motor 5/5 throughout, CN2-12 grossly intact IVs and Medications Medications Reviewed: Medications were reviewed in detail Lab and Diagnostics Result Diagram: 04/12/17 0515 04/13/17 0540 Assessment & Plan Grayson Is unfortunate 56-year-old gentleman with past medical of diabetes, hypertension, recent MRSA bacteremia, MRSA epidural abscess and spinal osteomyelitis currently on IV vancomycin admitted due to COLEMAN # COLEMAN, POA, due to vancomycin toxicity. Patient relatively on higher dose of vancomycin . But Patient had completed vancomycin course previously with out any issue. It is possible patient may have inadvertently taken other nephrotoxic medications. Patient does not seem to be on top of his medication list. His discharge summary and recent ID clinic notes state he is discharged on rifampin and vancomycin but patient denies refampcin prescription. ID PA at also confirms patient was discharged on rifampin. His recent clinic note also states he is on lisinopril and Lasix but patient denies. -Initial creatinine 2.3, further improving but not at baseline yet -KUB US normal,PSA elevated at 4.7, will need outpatient workup,UA unremarkable -Discontinued IV fluids 04/10, restarted 04/11 -Discontinued vancomycin, -Urine eosinophils negative # Recent MRSA bacteremia, MRSA epidural abscess, spinal osteomyelitis, repeat BCX 04/07 showed MRSA 1/3 bottels. BCX 04/12 ngtd -Discontinued vancomycin. started IV daptomycin 8 mg per KG once 04/10, rifampin 300mg tid -ID consulted, appreciate FU -Patient continues to have significant spinal tenderness. will consider repeating the MRI if any neurological change -[facility] transfer center was contacted today, spoke to Leather Dresser Dr.John Andrew who recommended medical tx for now. Dr.Randall Castañeda Neurosurgeon also reviewed the previous images, didn't feel that patient needs to be transferred urgently. -Plan to await repeat BCX 04/12 and probable repeat spine MRI if BCX positive again, if any neurologic deficit in the meantime, then this will prompt urgent transfer, will touch base with [facility] daily basis, coordinate with #Elevated PSA -Unclear significance. Patient had elevated PSA > 10 back in December. He has BPH symptoms.will start Flomax. May need workupof elevated PSA outpatient # Hyponatremia, improving -NS as above # Uncontrolled Insulin-dependent diabetes -Continue home Lantus 20 bid -a1c 11.6. Doubt patient's insulin compliance at home. Patient was inpatient almost half of the last 3-4 months which I would assume he would have better glucose control. # Hypertension -Patient on lisinopril per Clinic notes but patient denies. hold BP meds if any Patient admitted under inpatient status with expected length of stay > 2 midnights for severity of present symptoms, complexities of treatment plan and risk for adverse events full code Disposition: complicated, probable transfer to [facility] VTE Mechanical Devices: Intermittant Pneumatic CD Resuscitation Status: CPR: Attempt Resuscitation Time spent 35min Hermelinda Ledesma MD Apr 13, 2017 10:29
--- NOTE | 2017-04-13 11:28 | PROG NOTE ---
[address] [address] PROGRESS NOTE PATIENT: YUE BURGESS : 1960 MR#: [id number] ADMIT: 04/07/2017 JOB ID: [id number] INFECTIOUS DISEASE FOLLOWUP: DATE: 04/13/2017 REASON FOR FOLLOWUP: MRSA spine infection with recurrent bacteremia. INTERVAL HISTORY: The patient reports he continues to be free of fevers or chills but has moderately severe cervical and thoracic pain. He continues to have lower thoracic radicular pain which proceeds around both flanks and towards the midline anteriorly. He states this radicular pain is slowly better and has been present for a month or more. He denies any bowel or bladder problems. He notes he has excellent strength in his lower extremities. He has no fevers, chills, sweats. No cough or shortness of breath. No problems with the PICC line. PHYSICAL EXAMINATION: Reveals an afebrile gentleman, temperature 36.6. He has been afebrile since admission. Pulse 71, respiratory rate 16, blood pressure 127/75. He is saturating well on room air. He is awake, alert, conversational. Eyes without conjunctival hemorrhages. Oral cavity is unremarkable. Lungs clear. Cardiac tones regular rate and rhythm without new murmur. Abdomen soft and nontender. No suprapubic fullness. No evidence of urinary retention. Has excellent strength in his lower extremities and no evidence of synovitis. His PICC line right upper extremity looks benign. LABORATORIES: Include white count yesterday 8000, not repeated today. His creatinine is 1.85 and that is from today. Creatinine clearance 40. LFTs normal. C-reactive protein last done on April 09 was 3.1. Micro studies: The positive blood culture from admission on April 07 was drawn peripherally and grew MRSA. That MRSA interestingly is totally resistant to rifampin whereas his isolate two weeks ago at [facility] was susceptible suggesting that the rifampin he received prior to discharge at the [facility] was enough to produce resistance in this complex patient. His MRSA is very susceptible to daptomycin BRANDON 0.25 and susceptible to vancomycin BRANDON less than or equal to 0.5. Followup blood cultures done yesterday through the periphery as well as through the PICC are pending but negative so far. We have no imaging of the spine at this admission. IMPRESSION: I spent approximately 20 minutes discussing this case on the phone with the people at [facility]. We are deeply concerned about the possibility of poor source control in the back. The [facility] people were, of course, concerned that he might have a peripherally inserted central catheter methicillin-resistant Staphylococcus aureus infection but I think that is unlikely because the blood culture positive on April 07 was actually drawn through the periphery and I am concerned that we actually have evidence here is poor source control with respect to the phlegmon and infection in the spine. That said, the patient's symptoms which include back pain and radicular thoracic pain are actually improving and he has no neurologic deficits at this point. RECOMMENDATIONS: 1. Will stop the rifampin as there is no benefit to giving it now that he is totally resistant. 2. Will await on the repeat blood cultures. 3. I have ordered MRI scans of the cervical, thoracic and lumbar spine to be done with and without contrast. 4. Depending on the results of the MRI scan and the followup blood cultures, the patient may need to be transferred back to [facility] for additional surgery and I will be planning to call them once I have the results of all this information over the next day or two. 5. Should the patient develop any worsening radicular symptoms, bowel or bladder problems or weakness in his lower extremities, of course, he would need to be transferred expeditiously to the [facility] Neurosurgery service. Total time spent on this case today exceeds 45 minutes.
[2017-04-13] MEDS: DAPTOmycin Inj 1,000 MG in 0.9% Sodium Chloride 50 ML IV SCH (12:13)
[2017-04-13 12:53] VITALS: BP 168/97; PULSE 71; RESP 18; O2SAT 97
[2017-04-13] MEDS: oxyCODONE-Acetamin 5-325 mg Tablet PO PRN ×2 (16:16→21:40)
--- NOTE | 2017-04-13 19:18 | NUR ---
Positive blood culture- Patient afebrile. Denies increase in shoulder or chest pain. Sleeping off and on. Tolerating diet and fluids well. Patient placed in contact isolation.
--- NOTE | 2017-04-13 21:53 | DRSVH ---
PROCEDURE: MRI THORACIC SPINE WITH AND WITHOUT CONTRAST ([id number]) INDICATIONS: CONCERNING OF OSTEOMYELITIS OF T1-T3,C7-T1 TECHNIQUE: Noncontrast sagittal T1 spin echo and T2 fast spin echo, sagittal STIR, axial T1 and T2 fast spin ech o through the thoracic spine. After the administration of contrast, axial and sagittal T1 spin echo with fat saturation through the thoracic spine. COMPARISON: [facility], MR, MR THORACIC SPINE W&WO CON, 03/16/2017, 20:55. [facility], MR, MR THORACIC SPINE W&WO CON, 12/29/2016, 18:28. FINDINGS: Image quality: Excellent. Alignment and curvature: There is normal bony alignment. Marrow: Interval worsening of increased T2 signal and abnormal enhancement which now involve the ent yana T4 and T5 vertebral bodies. Normal signal in the remaining vertebral bodies. Spinal cord: Enhancing soft tissue extends into the central spinal canal via the left T4 neural fora men where it is confluent with abnormal posterior epidural enhancement extending from the T1-T7 level s greatest at T4 and T5 where enhancement measures up to 7 mm in diameter and exerts mass effect upon the spinal cord with residual cord size of 1.1 x 1.0 CM. Paraspinous soft tissues: Enlargement of enhancing left paravertebral soft tissue at T4 measuring at least 6.7 x 3.8 x 6.5 CM. There is lesser enhancing soft tissue in the right T4 paravertebral soft tissues as well as the bilateral T5 paravertebral soft tissues. Miscellaneous: Osteomyelitis and a degree of cortical destruction the medial left fourth rib progres sed since the previous study. Abnormal enhancement in the medial left third rib. Small right pleura l effusion. IMPRESSION: Progression of osteomyelitis was now involving the entire T4 and T5 vertebral bodies. Enlargement of paravertebral phlegmon greatest in the left paravertebral soft tissues which extends v ia the left T4 neural foramen into the epidural space consistent with an epidural abscess exerting ma ss effect upon the spinal cord at T4-5. Epidural enhancement extends from T1-T7 consistent with furt her epidural abscess. Worsening medial left fourth rib osteomyelitis with new cortical destruction. Small right pleural effusion. Findings discussed via telephone with the patient's nurse Charlette via telephone at 9:30 pm on 04/13/2017 . Dictated by: Twin Prince M.D. on 04/13/2017 at 21:23 Approved by: Twin Prince M.D. on 04/13/2017 at 21:51
--- NOTE | 2017-04-13 22:17 | DRSVH ---
PROCEDURE: MRI LUMBAR SPINE WITH AND WITHOUT CONTRAST ([id number]) INDICATIONS: CONCERNING OF OSTEOMYELITIS OF T1-T3,C7-T1 TECHNIQUE: Noncontrast sagittal T1 spin echo and T2 fast spin echo, sagittal STIR, axial T1 and T2 fast spin ech o through the lumbar spine. In cases with scoliosis, additional coronal T2 fast spin echo may be per formed. After the administration of contrast, sagittal and axial T1 spin echo with fat saturation th rough the lumbar spine. COMPARISON: None. FINDINGS: Image quality: Excellent. Alignment and curvature: There is normal bony alignment. Marrow: Marrow is of normal overall signal. No acute vertebral body compression fractures. No susp icious marrow enhancement. Spinal cord: Conus medullaris terminates at the L1 level. Visualized spinal cord demonstrates mohsen l signal, without suspicious enhancement. Paraspinous soft tissues: No paravertebral masses or abnormal enhancement. L1-L2: Moderate intervertebral body disc height loss. Facet joint and ligamentum flavum hypertrophy . The central spinal canal and neural foramina are patent. L2-L3: Mild intervertebral body disc height loss. Facet joint and ligamentum flavum hypertrophy. T he central spinal canal and neural foramina are patent L3-L4: Mild intervertebral body disc height loss. Facet joint and ligamentum flavum hypertrophy. T he central spinal canal and neural foramina are patent L4-L5: Mild/moderate intervertebral disc height loss with broad-based posterior disc bulge. Facet j oint and ligamentum flavum hypertrophy. Minimal bilateral neural foraminal narrowing. The spinal ca nal is patent. Tiny focus of increased T2 signal in the posterior disc. L5-S1: Mild intervertebral disc height loss with broad-based posterior disc bulge. Facet joint and ligamentum flavum hypertrophy. The central spinal canal and neural foramina are patent. IMPRESSION: No significant interval change. No evidence of discitis or osteomyelitis. Stable mild degenerative changes. Dictated by: Twin Prince M.D. on 04/13/2017 at 22:08 Approved by: Twin Prince M.D. on 04/13/2017 at 22:16
--- NOTE | 2017-04-13 22:33 | DRSVH ---
PROCEDURE: MRI CERVICAL SPINE WITH AND WITHOUT CONTRAST ([id number]) INDICATIONS: CONCERNING OF OSTEOMYELITIS OF T1-T3,C7-T1 TECHNIQUE: Noncontrast sagittal T1 spin echo and T2 fast spin echo, sagittal STIR, foraminal oblique sagittal T2 fast spin echo, axial gradient echo or T2 fast spin echo through the cervical spine. After the admi nistration of contrast, axial and sagittal T1 spin echo with fat saturation through the cervical spin e. COMPARISON: None. FINDINGS: Image quality: Excellent. Alignment and curvature: There is normal bony alignment. Marrow: Cervical spine marrow is normal in overall signal, without suspicious enhancement. Spinal cord: Visualized spinal cord has normal size and signal. No cerebellar tonsillar herniation. No abnormal intramedullary enhancement. Paraspinous soft tissues: There is extensive soft tissue enhancement and increased T2 signal in the paracentral posterior soft tissues. No discrete drainable fluid collections. C2-3: Minimal intervertebral body disc height loss. No significant disc osteophyte complex. Uncove rtebral joint hypertrophy. Mild right neuroforaminal narrowing. The left neural foramen and central spinal canal are patent. C3-4: Minimal intervertebral body disc height loss with broad-based posterior disc osteophyte comple x. Facet joint and uncovertebral joint hypertrophy. This causes moderate left and mild right neural foraminal narrowing. Central spinal canal is patent. C4-5: Mild intervertebral body disc height loss and broad-based posterior disc osteophyte complex. Facet joint and uncovertebral joint hypertrophy. Mild bilateral neural foraminal narrowing. Patent central spinal canal. C5-6: Moderate intervertebral disc height loss with broad-based posterior disc osteophyte complex an d facet joint and uncovertebral joint hypertrophy. Findings cause moderate left and mild right neura l foraminal narrowing. Patent central spinal canal. C6-7: Moderate intervertebral body disc height loss and broad-based posterior disc osteophyte comple x. Facet joint and uncovertebral joint hypertrophy. Mild bilateral neural foraminal narrowing. Pat ent central spinal canal. C7-T1: Minimal intervertebral disc height loss. No significant disc osteophyte complex. Facet join t and uncovertebral joint hypertrophy. The central spinal canal and neural foramina are patent. IMPRESSION: No evidence of discitis or epidural abscess in the cervical spine. Extensive soft tissue enhancement and edema in the posterior midline soft tissues most consistent wit h cellulitis or postoperative change although there is no postoperative change in the cervical spine itself. There are no drainable fluid collections. Epidural enhancement in the upper thoracic spine is noted and better seen on today's dedicated thorac ic spine MRI. Dictated by: Twin Prince M.D. on 04/13/2017 at 22:16 Approved by: Twin Prince M.D. on 04/13/2017 at 22:31
--- NOTE | 2017-04-13 22:43 | NUR ---
MRI Patient off to MRI this shift. Back in room w/o issue. Call from radiologist to notify night hospitalist of MRI results showing worsening osteomyelitis and epidural abscess. Dr. Garcia notified via telephone conversation and of patient c/o new tingling in 2nd and 3rd finger on right hand. No new orders at this time. States he will hold off transfer to [facility] until AM unless patient's condition starts to decline.
[2017-04-13 23:00] VITALS: BP 148/65; PULSE 86; RESP 18; O2SAT 95
[2017-04-14 04:26] LABS: BASOPHILS % (AUTO) 0.2 % (0-3); EOSINOPHILS % (AUTO) 4.2 % (0-5); MONOCYTES % (AUTO) 7.3 % (4-12); Mean Corpuscular Hemoglobin 26.7 pg (27.0-35.0); Mean Corpuscular Volume 82.5 fL (81-100); NEUTROPHILS % (AUTO) 68.5 % (40-74); Platelet Count 279 bil/L (150-400)
[2017-04-14 04:54] LABS: Magnesium 1.9 mg/dL (1.6-2.6); Phosphorus 4.5 mg/dL (2.5-4.9)
[2017-04-14 05:51] VITALS: BP 118/70; PULSE 71; RESP 18; O2SAT 95
[2017-04-14] MEDS: Insulin LISPRO High-Dose Scale SUBQ SCH ×4 (07:52→21:26)
--- NOTE | 2017-04-14 08:57 | PROG NOTE ---
[address] [address] PROGRESS NOTE PATIENT: YUE BURGESS : 1960 MR#: [id number] ADMIT: 04/07/2017 JOB ID: [id number] DATE: 04/14/2017 REASON FOR FOLLOWUP: Bacteremic epidural abscess with vertebral osteomyelitis. INTERVAL HISTORY: Recall that yesterday we were very concerned about the finding of a positive blood culture from April 07 which occurred despite a very prolonged and high levels of vancomycin, in fact levels of vancomycin that were toxic. This led to concerns about source control on the patient's back and yesterday I ordered MRI scans of the entire spine which were done last night. The findings on the MRI scan of the thoracic spine were of great concern and I have spent considerable time this morning already speaking to the physicians at [facility]. The patient for his part feels okay this morning. He has had some numbness in the 4th and 5th fingers on the right hand, but otherwise no neurologic symptoms at all. He states his thoracic radicular pain, which he has had for weeks is actually slowly improving though he does have a fair amount of mid thoracic back pain, which is not improving. That mid thoracic pain is localized right to the spine and as mentioned the radicular component of it is decreasing. He has not had fevers, chills, or sweats overnight and no new pulmonary or GI symptoms. He states his legs feel strong, are not numb and that he is able to walk back and forth to the bathroom and around the room without any difficulty. No bowel or bladder problems. PHYSICAL EXAMINATION: Reveals a reasonably comfortable gentleman lying in bed, in no acute distress. He is afebrile and he has been throughout his six days back here in the hospital. Current temp 36.6, pulse 71, respiratory rate 18, blood pressure 118/70. He is in no acute distress. His eyes without conjunctivitis. Mental status is completely clear. Upper extremities strong without abnormality. PICC line in the right upper extremity looks benign. Cardiac tones without new murmur. Abdomen soft, nontender, without organomegaly. The patient's strength in the lower extremities continues to be 5/5 with no deficit whatsoever. His reflexes do seem to be greatly diminished and basically absent at the ankles and diminished at the knees, but of course he has advanced diabetes with some neuropathy so I am not sure what to make of the reflexia in his ankles. DIAGNOSTIC DATA: This morning include white count 9000, normal diff. Creatinine 1.77. LFTs entirely normal. The CRP was 3.1 on admission. It has not been repeated in the last six days. Urine had no white cells. Micro studies are important in that he had 1/4 positive blood cultures from the when he was readmitted that was from a peripheral draw and it is notable that this set drawn reportedly from the PICC line at that time was negative. We have followup blood cultures done on the , which are negative at almost 48 hours. These were drawn one set from the PICC and one from the periphery and they are both negative. Interestingly a MRSA screen of the nares was negative even though the one positive blood culture from the was in fact MRSA. Importantly that MRSA was totally resistant to rifampin whereas the isolette in [place] obtained from multiple blood cultures there during his March admission for epidural abscess and vertebral osteo was rifampin susceptible. Studies are of great interest and concern yesterday because of the finding of the MRSA in a blood culture. I ordered MRI scans of the entire spine. The cervical spine shows no evidence of diskitis or epidural abscess. There is soft tissue enhancement in the posterior midline tissues consistent with cellulitis or postop change. No fluid collections are seen. The lumbar spine is essentially negative and there is no evidence of osteo though there is some degenerative change. The action is centered on the thoracic MRI scan, which is of great concern. It was compared to films done in March and shows progression of osteo involving T4 and T5. Additionally there is a paravertebral phlegmon in the left paravertebral soft tissues which extends via the T4 neural foramen into the epidural space. This is consistent with an epidural abscess from T1-T7 with compression of the cord at T4-5. There is also worsening left 4th rib osteomyelitis with cortical destruction. IMPRESSION: This is a very difficult and disconcerting case of a patient who had two long hospitalizations at [facility]. During the initial admission this year he had evacuation of an epidural abscess in the cervical area. He was then readmitted shortly after he finished all the antibiotics for that first admission with more involvement of the upper thoracic spine. The decision was made at [facility] in late March to treat the patient with IV antibiotics rather than a 2nd surgery, and he was discharged on vancomycin and supposedly rifampin. The patient states, however, he never got the prescription for rifampin and was totally unaware of it and never took any of it at home. He eventually became toxic on vancomycin and was admitted to this facility back 6 days ago with very high vancomycin troughs and a rapidly climbing creatinine. We started the patient on renally adjusted doses of daptomycin as replacement for the vancomycin and obtained two sets of blood cultures. To our surprise one of those blood cultures actually grew MRSA and it was not related to the PICC as it was drawn through the periphery. This suggested lack of source control in the spine and for that reason we yesterday evening re-imaged the patient's spine in great detail finding worsening of his osteomyelitis, phlegmon, and epidural abscess in the T1-T7 region. This corresponds exactly to his severe pain. Fortunately the patient is free of any focal motor findings at this point. His sensory exam is a little difficult because of his pre-existing neuropathy, but he reports that no dysesthesias, paresthesias, or change. He does have very diminished reflexes at the knees and they are absent at the ankles, but this may be reflection of diabetes rather than spinal cord involvement. Out of great concern for these worsening changes on the thoracic spine, I called the [facility] and this morning had a long conversation with Dr. Trevre Sierra of the spine surgery service. He was reassured by the patient's CRP which he said is much better than it was in [place] and felt that as long as the patient was neurologically intact we should continue with antibiotic therapy. He did say though that he would carefully look at the MRI scans this morning and call me back in the early afternoon. If he thought the patient warranted additional surgery or transfer he was to let me know this afternoon, but his initial recommendation was to continue with aggressive antibiotic therapy and to consider repeat JEZ looking for endocarditis in this patient. Note the patient did have a JEZ while he was at [facility] that was negative prior to his being discharged home on IV vancomycin. I remained extremely concerned about this patient who would seem to have progressive spine and epidural involvement. He has failed vancomycin in a very definitive way in that even in spite of very high toxic doses of vancomycin he still had a positive blood culture which grew a vanco susceptible organism. To me this is very concerning for failure of source control in his spine and brings into question whether additional surgery is indicated, but I of course, will defer to the spine and neurosurgeons at [facility] regarding this. RECOMMENDATIONS: 1. On my way over to radiology now to push the films to [facility] so the Dr. Sierra and his team can carefully review them later today. 2. I am worried this patient will require transfer to [facility] in the near future for additional surgery and he will require very close neurologic follow up. I do not think that it would be unreasonable to obtain a neurology consult why he is here in [facility] and see whether they think any additional studies such as nerve conduction velocity or EMG might be indicated in this situation. 3. We have increased the daptomycin to a really large dose of 1 g q.24 hours which would be 10 mg/kg based on ideal body weight. Also note that this is in the face of her creatinine clearance which is around 40 so this constitutes a very, very large dose of daptomycin indeed. To the daptomycin I am going to add ceftaroline. There is considerable evidence that daptomycin and ceftaroline are synergistic against MRSA. 4. Note that this isolate is now rifampin resistant and there is no point to continue rifampin so I have stopped that. 5. We have little to add in terms of antibiotic therapy now at maximal doses of daptomycin and ceftaroline and so if the patient does not thrive on this medical management, he will need additional surgery. ADDITIONAL INFORMATION: INTERIM DETAILS: The patient was seen this morning and had no new neurologic deficit. I reviewed in detail the MRI scans as well as the positive blood culture that was from dated to the admission here and discussed this twice with the Spine Surgery team at the [facility]. This morning, I asked Radiology to send the films and, following that, I was able to speak to both the infectious disease mergers and acquisitions consultant as well as the ortho spine physician at [facility]. The ortho spine physician was of the opinion that we could continue to treat him medically here as there was no indication for emergent surgery based on the appearance of the MRI scans. I asked him to review this case at their weekly conference which coincidentally is tomorrow morning, and he told me that this case will be reviewed by the neurosurgical and spine surgical teams at the [facility] with comprehensive overview of the MRI scans. He plans to call me back tomorrow morning with additional input as to whether or not we should transfer the patient for additional surgery, but as of this afternoon, the prevailing opinion from the [facility] Spine Surgery team was that we should continue to manage the patient here with medical treatment as his surgery would be difficult and not certain to affect a positive outcome. Addenda added by ADAN 04/15/17 at 6:59am [facility]
[2017-04-14] MEDS: Insulin GLARgine 100 Unit/mL Syringe SUBQ SCH ×2 (09:31→21:27)
[2017-04-14] MEDS: Ceftaroline Inj 600 MG in Dextrose 5% 250 ML IV SCH ×2 (09:32→21:26)
[2017-04-14] MEDS: oxyCODONE-Acetamin 5-325 mg Tablet PO PRN ×3 (12:18→21:25)
[2017-04-14] MEDS: 0.9% Sodium Chloride 1,000 ML IV SCH (12:20)
[2017-04-14] MEDS: DAPTOmycin Inj 1,000 MG in 0.9% Sodium Chloride 50 ML IV SCH (12:41)
[2017-04-14 13:14] VITALS: BP 152/74; PULSE 72; RESP 17; O2SAT 97
--- NOTE | 2017-04-14 14:59 | PCM.PNMED ---
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, LE weakness, bowel incontinence, urinary retention, tingling/numbness throughout Exam Vital Signs Vital Sign - Last Date Time Temp Pulse Resp B/P Pulse Ox O2 Delivery O2 Flow Rate FiO2 04/14/17 13:14 36.8 72 17 152/74 97 Room Air Intake and Output 04/13/17 04/13/17 04/14/17 Cumulative From/Thru 15:00 23:00 07:00 04/07/17 12:19 - 04/14/17 06:21 Intake Total 2421 ml 1302 ml 96086 ml Output Total 1200 ml 860 ml 74024 ml Balance 1221 ml 442 ml 3157 ml Intake Oral 1520 ml 600 ml 9164 ml IV Total 901 ml 702 ml 32548 ml Output Urine Total 1200 ml 860 ml 33171 ml # Voids 3 # Bowel Movements 0 0 1 Exam NAD, comfortably laying down on the bed no JVD, MMM, no LAD RRR, nl s1, s2 no mrg CTAB, no w,c S,ND,NT,normoactive BS+ warm, no edema, pulses 2/2 back: mildly tender grossly on Tspines throughout, neuro: motor 5/5 throughout, CN2-12 grossly intact IVs and Medications Medications Reviewed: Medications were reviewed in detail Lab and Diagnostics Result Diagram: 04/14/17 0400 04/14/17 0400 Assessment & Plan Grayson Is unfortunate 56-year-old gentleman with past medical of diabetes, hypertension, recent MRSA bacteremia, MRSA epidural abscess and spinal osteomyelitis currently on IV vancomycin admitted due to COLEMAN # COLEMAN, POA, due to vancomycin toxicity. Patient relatively on higher dose of vancomycin . But Patient had completed vancomycin course previously with out any issue. It is possible patient may have inadvertently taken other nephrotoxic medications. Patient does not seem to be on top of his medication list. His discharge summary and recent ID clinic notes state he is discharged on rifampin and vancomycin but patient denies refampcin prescription. ID PA at also confirms patient was discharged on rifampin. His recent clinic note also states he is on lisinopril and Lasix but patient denies. -Initial creatinine 2.3, further improving but not at baseline yet -KUB US normal,PSA elevated at 4.7, will need outpatient workup,UA unremarkable -Discontinued IV fluids 04/10, restarted 04/11 -Discontinued vancomycin, -Urine eosinophils negative # Recent MRSA bacteremia, MRSA epidural abscess, spinal osteomyelitis, repeat BCX 04/07 showed MRSA 1/3 bottels. BCX 04/12 ngtd. MRI of whole spines showed worsening OM and probable abscess. Reading per Twin Prince showed Progression of osteomyelitis involving the entire T4 and T5 vertebral bodies. Enlargement of paravertebral phlegmon greatest in the left paravertebral soft tissues which extends via the left T4 neural foramen into the epidural space consistent with an epidural abscess exerting mass effect upon the spinal cord at T4-5. Epidural enhancement extends from T1-T7 consistent with further epidural abscess and Worsening medial left fourth rib osteomyelitis with new cortical destruction.C/L spines were negative. As per neurosurgeon , neuroradiology attending Dr.Jerry Malone at [facility], who reviewed MRI from , there was no discrete epidural abscess that can be drained surgically, didn' t recommend surgical intervention and transfer as long as pt is neurologically intact. -Discontinued vancomycin. started IV daptomycin 8 mg per KG once 04/10, rifampin 300mg tid -ID consulted, appreciate FU -Patient continues to have significant spinal tenderness. will consider repeating the MRI if any neurological change -[facility] transfer center was contacted today, spoke to [employer] Dr.John Andrew who recommended medical tx for now. Dr.Randall Castañeda Neurosurgeon also reviewed the previous images, didn't feel that patient needs to be transferred urgently. -Plan to await repeat BCX 04/12 -if pt develops any neurologic deficit, will transfer patient to [facility]. They are aware of the case and case being remained opened. #Elevated PSA -Unclear significance. Patient had elevated PSA > 10 back in December. He has BPH symptoms.will start Flomax. May need workupof elevated PSA outpatient # Hyponatremia, improving -NS as above # Uncontrolled Insulin-dependent diabetes -Continue home Lantus 20 bid -a1c 11.6. Doubt patient's insulin compliance at home. Patient was inpatient almost half of the last 3-4 months which I would assume he would have better glucose control. # Hypertension -Patient on lisinopril per Clinic notes but patient denies. hold BP meds if any Patient admitted under inpatient status with expected length of stay > 2 midnights for severity of present symptoms, complexities of treatment plan and risk for adverse events full code Disposition: likely prolonged for now, if stable BCX remains negative, no neurologic deficit, will consider d/c soon, coordinate with ID. VTE Mechanical Devices: Intermittant Pneumatic CD Resuscitation Status: CPR: Attempt Resuscitation Time spent 35min Hermelinda Ledesma MD Apr 14, 2017 13:52
--- NOTE | 2017-04-14 18:04 | NUR ---
pain level patient has been c/o mild upper back pain that has been continuous throughout the afternoon. patient reports that he's okay in the morning then pain gets worse later in the day. percocet prn has been effective in controlling. continue to monitor.
[2017-04-14 19:57] VITALS: BP 162/85; PULSE 71; RESP 18; O2SAT 96
[2017-04-15] MEDS: 0.9% Sodium Chloride 1,000 ML IV SCH ×2 (02:30→17:35)
--- NOTE | 2017-04-15 03:36 | NUR ---
Pain/Blood Sugar Complaining of back pain 6/10 at HS. Percocet one tab PO given with effective results. Noted to be resting with eyes closed upon pain reassessment and with each rounding. Blood sugar @ HS: 216. Patient received SS and Lantus coverage. Refused 0300 blood sugar recheck. Wants to wait until AM, as he has no s/sx of hyper/hypoglycemia.
[2017-04-15 05:42] VITALS: BP 110/69; PULSE 76; RESP 16; O2SAT 97
[2017-04-15] MEDS: Insulin LISPRO High-Dose Scale SUBQ SCH ×4 (07:53→23:24)
[2017-04-15] MEDS: Insulin GLARgine 100 Unit/mL Syringe SUBQ SCH ×2 (07:54→21:25)
[2017-04-15] MEDS: Ceftaroline Inj 600 MG in Dextrose 5% 250 ML IV SCH ×2 (09:12→21:25)
--- NOTE | 2017-04-15 10:24 | PCM.PNMED ---
Subjective Date of Service Apr 15, 2017 Subjective pt remained stable, no new sx afebrile, BCX ngtd Exam Vital Signs Vital Sign - Last Date Time Temp Pulse Resp B/P Pulse Ox O2 Delivery O2 Flow Rate FiO2 04/15/17 05:42 36.4 76 16 110/69 97 Room Air Intake and Output 04/14/17 04/14/17 04/15/17 Cumulative From/Thru 15:00 23:00 07:00 04/07/17 12:19 - 04/15/17 06:34 Intake Total 1652 ml 1533 ml 56412 ml Output Total 1400 ml 1190 ml 59344 ml Balance 252 ml 343 ml 3752 ml Intake Oral 637 ml 400 ml 89289 ml IV Total 1015 ml 1133 ml 83233 ml Output Urine Total 1400 ml 1190 ml 88858 ml # Voids 3 # Bowel Movements 0 0 1 Exam NAD, comfortably laying down on the bed no JVD, MMM, no LAD RRR, nl s1, s2 no mrg CTAB, no w,c S,ND,NT,normoactive BS+ warm, no edema, pulses 2/2 back: mildly tender grossly on Tspines throughout, neuro: motor 5/5 throughout, sensory intact to dull throughout IVs and Medications Medications Reviewed: Medications were reviewed in detail Lab and Diagnostics Result Diagram: 04/14/1739904/14/17399 Assessment & Plan Grayson Is unfortunate 56-year-old gentleman with past medical of diabetes, hypertension, recent MRSA bacteremia, MRSA epidural abscess and spinal osteomyelitis currently on IV vancomycin admitted due to COLEMAN # COLEMAN, POA, due to vancomycin toxicity. Patient relatively on higher dose of vancomycin . But Patient had completed vancomycin course previously with out any issue. It is possible patient may have inadvertently taken other nephrotoxic medications. Patient does not seem to be on top of his medication list. His discharge summary and recent ID clinic notes state he is discharged on rifampin and vancomycin but patient denies refampcin prescription. ID PA at also confirms patient was discharged on rifampin. His recent clinic note also states he is on lisinopril and Lasix but patient denies. -Initial creatinine 2.3, further improving but not at baseline yet -KUB US normal,PSA elevated at 4.7, will need outpatient workup,UA unremarkable -Discontinued IV fluids 04/10, restarted 04/11 -Discontinued vancomycin, -Urine eosinophils negative # Recent MRSA bacteremia, MRSA epidural abscess, spinal osteomyelitis, repeat BCX 04/07 showed MRSA 1/3 bottels. BCX 04/12 ngtd. MRI of whole spines showed worsening OM and probable abscess. Reading per [facility] showed Progression of osteomyelitis involving the entire T4 and T5 vertebral bodies. Enlargement of paravertebral phlegmon greatest in the left paravertebral soft tissues which extends via the left T4 neural foramen into the epidural space consistent with an epidural abscess exerting mass effect upon the spinal cord at T4-5. Epidural enhancement extends from T1-T7 consistent with further epidural abscess and Worsening medial left fourth rib osteomyelitis with new cortical destruction.C/L spines were negative. As per neurosurgeon , neuroradiology attending Dr.Jerry Malone at [facility], who reviewed MRI from , there was no discrete epidural abscess that can be drained surgically, didn' t recommend surgical intervention and transfer as long as pt is neurologically intact. As per , case also being reviewed by Neurosurgeon and will be discussed in the conf -pt remained neurologically intact, denied any paresthesia, UE motor weakness. -Discontinued vancomycin. started IV daptomycin 8 mg per KG once 04/10, rifampin 300mg tid then increased dapto 10mg/kg, RFP was stopped. Ceftaroline was added, appreciate FU with -Plan to await repeat BCX 04/12, ngtd -if pt develops any neurologic deficit, will transfer patient to [facility]. They are aware of the case and case being remained opened, will coordinate with #Elevated PSA -Unclear significance. Patient had elevated PSA > 10 back in December. He has BPH symptoms.will start Flomax. May need workupof elevated PSA outpatient # Hyponatremia, improving -NS as above # Uncontrolled Insulin-dependent diabetes -Continue home Lantus 20 bid -a1c 11.6. Doubt patient's insulin compliance at home. Patient was inpatient almost half of the last 3-4 months which I would assume he would have better glucose control. # Hypertension -Patient on lisinopril per Clinic notes but patient denies. hold BP meds if any Patient admitted under inpatient status with expected length of stay > 2 midnights for severity of present symptoms, complexities of treatment plan and risk for adverse events full code Disposition: likely prolonged for now, if stable BCX remains negative, no neurologic deficit, will consider d/c soon, coordinate with ID. VTE Mechanical Devices: Intermittant Pneumatic CD Resuscitation Status: CPR: Attempt Resuscitation Time spent 35min Hermelinda Ledesma MD Apr 15, 2017 10:24
--- NOTE | 2017-04-15 11:38 | NUR ---
NUTRITION ASSESSMENT: ASSESS: Pt is a 56yo M admitted for COLEMAN due to vanco toxicity. MRI of spine showed worsening OM and probable abscess. ID is following. He is on a Diabetic diet and tolerating well at 100% of most meals. New wt was requested this am due to last wt 04/09/17. Last BM recorded was 04/10 but spoke with RN who reported that pt had a BM 04/14. PMHX: DM, hypertension, recent MRSA bacteremia, MRSA epidural abscess and spinal osteomyelitis LABS: Reviewed. Bun 32, Casing Puller 1.77, Glu 155, Alb 3.3 MEDS: Reviewed. insulin GI: last reported BM 04/14 SKIN: no major issues CURRENT WTS: 114.8kg, BMI 31.6kg/m2 no new wt since 04/09/17, IBW 89kg DIET: Diabetic, PO 100% EST. NEEDS: COLEMAN Kcals: 2295-2525kcal/kg (20-22kcla/kg) Pro: 90-105g/day (1.0-1.2g/kg IBW) NUTRITION DIAGNOSIS: 1.) Altered nutrition related lab values related to endocrine disorder as evidence by A1C of 11.6 NUTRITION INTERVENTION: 1.) Pt declined DM diet ed 2.) Continue current DM diet. PO is adequate for needs 3.) Will monitor for new wt MONITOR / EVAL: PO, wt, GI, BM, labs, POC, nutrition status. Will continue to monitor per low nutrition risk guidelines
--- NOTE | 2017-04-15 11:38 | PROG NOTE ---
[address] [address] PROGRESS NOTE PATIENT: YUE BURGESS : 1960 MR#: [id number] ADMIT: 04/07/2017 JOB ID: [id number] DATE: 04/15/2017 INFECTIOUS DISEASE FOLLOW UP NOTE: REASON FOR FOLLOWUP: Vertebral osteomyelitis was spinal epidural abscess and MRSA bacteremia. INTERVAL HISTORY: The patient reports no change overnight. He has no change in his sensation in his lower extremities and no weakness in his lower extremities. No bowel or bladder problems. No fevers, chills or sweats. PHYSICAL EXAMINATION: Reveals an afebrile gentleman, temperature 36.4, pulse 76, respiratory rate 16, blood pressure 110/69, saturating 97% on room air. Examination of the mental status unremarkable. The patient has continued to have pain and tenderness over the mid thoracic spine at about T4-T8. That has not changed. Lungs are clear. Cardiac tones without murmur. Abdomen: Slightly obese, soft and nontender. His lower extremities still with 5/5 strength. There is some numbness around the feet and ankle bilaterally, but this is chronic and felt to be on the basis of his diabetic neuropathy. No skin rash or peripheral stigmata of endocarditis. LABORATORIES: Include white count yesterday 9000, not repeated today. Chemistry studies are pending from today but the result is not yet available. The follow up blood cultures on the remain negative at three days. Recall that one of the blood cultures from the when he was readmitted was positive for MRSA which was among other things rifampin resistant. Imaging was discussed in great detail in my notes yesterday, and I discussed the imaging again with the Ortho Spine team at [facility] yesterday evening. IMPRESSION: This remains an extremely worrisome case of a patient with recurrent spinal epidural abscess involving his thoracic spine and associated vertebral osteomyelitis. The patient has had two long courses of therapy, and in spite of that, was admitted here with renal failure due to vanco and had a single positive blood culture for MRSA on the . Follow up imaging shows what appears to be progressive infection. In discussing his case with the Ortho Spine yesterday at the [facility], who had previously cared for this patient, they believe that his spinal cord is not at imminent risk of compression and they are hopeful that he will still improve with medical therapy, not require additional intraoperative or operative care. The Ortho team said they plan to discuss this case with the patient's images at a large conference to be held this morning, and they will be calling me back afterwards. RECOMMENDATIONS: 1. Will continue with ceftaroline plus dapto, both in maximal doses, for synergistic coverage of the MRSA epidural abscess. There is nothing else to be done from an antimicrobial point of view. 2. Should the patient progress in any way and develop increased paresthesias, dysesthesias, saddle paresthesias, bowel or bladder problems or weakness, he will need emergent transfer to the [facility] for surgery. 3. We await followup from them following their interdisciplinary conference and review of his images this morning, if they would want to take the patient back in transfer sooner rather than later.
[2017-04-15] MEDS: oxyCODONE-Acetamin 5-325 mg Tablet PO PRN (11:53)
[2017-04-15] MEDS: DAPTOmycin Inj 1,000 MG in 0.9% Sodium Chloride 50 ML IV SCH (12:12)
--- NOTE | 2017-04-15 13:11 | NUR ---
Social Work- Continued D/C Planning Data & Assessment: EMR reviewed. Pt is on day 8 of hospitalization. Pt is not medically ready for discharge, anticipate multiple more days. Pt is being considered for transfer to either [facility] or [facility] if emergent neurologic symptoms appear. Pt continues with ceftaroline plus dapto, both in maximal doses, for synergistic coverage of the MRSA epidural abscess. SW checked in with pt today regarding discharge plan, pt is awaiting to hear from the medical team what will be necessary at discharge. Pt confirms that his is a good support for him. Pt is open with [facility], T/C to Torie updating her of pt's continued hospitalization. Torie continues to follow. SW will continue to follow for discharge planning needs, await further orders from the medical team. Plan: Pt's is a good support for pt and will be able to assist at discharge. SW will continue to follow for discharge planning needs, await further orders from the medical team. JEEVAN Glaser
[2017-04-15 15:25] VITALS: BP 133/69; PULSE 63; RESP 18; O2SAT 96
[2017-04-15] MEDS ORDERED: Nystatin 100,000 Unit/Gm 15 Gm Powder TOPICAL PRN (18:45)
[2017-04-15 20:25] VITALS: BP 151/83; PULSE 67; RESP 18; O2SAT 95
[2017-04-15] MEDS: Miconazole 70 Gm Powder TOPICAL PRN (21:34)
--- NOTE | 2017-04-16 03:32 | NUR ---
Scrotal Redness On initial assessment , patient was found to have redness and white discharge around misty area and folds of legs. Physician notified. Patients VSS. Call light within reach. Care continues.
--- NOTE | 2017-04-16 03:35 | NUR ---
Refusal of Blood Glucose Check Patient refused to have 0320 blood sugar check. Patient had received 2 units of humalog for correctional dose at 2200.
[2017-04-16 07:15] VITALS: BP 124/67; PULSE 68; RESP 20; O2SAT 97
[2017-04-16] MEDS: Insulin LISPRO High-Dose Scale SUBQ SCH ×4 (08:00→21:52)
[2017-04-16] MEDS: 0.9% Sodium Chloride 1,000 ML IV SCH ×3 (08:06→23:13)
[2017-04-16] MEDS: Insulin GLARgine 100 Unit/mL Syringe SUBQ SCH ×2 (08:07→21:54)
[2017-04-16 08:19] VITALS: BP 146/84; PULSE 64; RESP 16; O2SAT 97
[2017-04-16] MEDS: Ceftaroline Inj 600 MG in Dextrose 5% 250 ML IV SCH ×2 (10:32→21:51)
[2017-04-16] MEDS: DAPTOmycin Inj 1,000 MG in 0.9% Sodium Chloride 50 ML IV SCH (12:13)
--- NOTE | 2017-04-16 13:38 | PROG NOTE ---
[address] [address] PROGRESS NOTE PATIENT: YUE BURGESS : 1960 MR#: [id number] ADMIT: 04/07/2017 JOB ID: [id number] DATE: 04/16/2017 INFECTIOUS DISEASE FOLLOWUP NOTE: REASON FOR FOLLOWUP: Epidural abscess and spinal osteomyelitis. INTERVAL HISTORY: Over the last 24 hours I have once again had innumerable conversations with multiple providers including Ortho Spine at [facility], Infectious Disease at [facility], the hospitalist here, and Radiology. The patient continues to report no fevers, chills, or sweats. He has continual upper thoracic pain which is quite severe but no longer has the radicular component. He notes that his legs are strong and do not feel heavy or weak in any way, and he has no trouble ambulating or urinating. He has had some epigastric and left upper quadrant pain today which started after breakfast and that is unusual for him. No nausea, vomiting, diarrhea, or shortness of breath. PHYSICAL EXAMINATION: Reveals an afebrile and comfortable gentleman, temp 36.9, pulse 64, respiratory rate 16, blood pressure 146/84. He is saturating well and in no acute distress. His mental status is normal. His eyes are normal, including conjunctivae. His lungs are clear. Cardiac tones regular rate and rhythm without murmur. PICC line right upper extremity benign. Abdomen benign. No skin rashes noted. He is quite tender over T3 to about T6. His lower extremity strength is 5/5 and no new sensory deficits. LABORATORIES: Include a white count of 9000, last done two days ago. His creatinine is stable at 1.9, but note that it is no longer getting any better and has been bouncing between really 1.8 and 1.9 now for several days. His glucose 121. His LFTs are normal. Urinalysis without white cells. Hepatitis C negative. Micro studies include the positive blood culture from the which grew MRSA resistant to rifampin. Followup blood cultures on the , drawn from the PICC as well as the peripheral IV, are negative. We have no new imaging. I did go over the imaging very closely with the neuroradiologist today and like the Radiology team at [facility] he is not concerned about imminent cord compression. IMPRESSION: This is an unfortunate gentleman with a very extensive osteomyelitis of the upper thoracic spine with associated phlegmon but no current compression of the cord, though there is a great deal of epidural enhancement. The meeting yesterday at [facility] among various specialties concluded that the patient will likely need surgery in the future to stabilize his spine, and perhaps debride and drain the phlegmon, but that they do not think it was needed immediately and that his spinal cord was not currently at risk of compression. Our radiologist, who I reviewed these films with this morning, is of the same opinion. The [facility] plan is for the patient to report as an outpatient to the Ortho Spine Clinic at 9 a.m. Wednesday, which would be April 19. At that time they plan to do a CT scan of the spine and then to see the patient both Ortho Spine Clinic as well as in the Infectious Disease Clinic. They suggested the patient could be discharged home for a day or two before that appointment or just kept in the hospital and then to go directly there from our inpatient morfin to their outpatient clinic. In discussing this with the patient, he is nervous about the condition of his spine and is most eager to stay here until the last possible moment. Will continue to treat the patient with maximal therapy, which in this situation would be daptomycin a gram a day and ceftaroline 600 mg q.12. Note that his creatinine clearance is actually only somewhere around 40. The patient asked to be discharged very early on Wednesday morning, so this should be arranged on Wednesday the so he can leave in the early hours on the . He then plans to presumably stop home just east of here and put on some different clothes and then head on to his 9 a.m. appointment with Ortho Spine at [facility] with CT scanned and ID Clinic visits to follow. I am a little uncertain as to what to do with his home IV orders. When he was admitted here he was receiving vancomycin, which had been prescribed by his [facility] physicians. Because of his renal injury we switched that to a combination of daptomycin and ceftaroline based on the fact that his T-spine seem to be worsening in fact with the vancomycin. Rifampin is no longer an option, of course. I have placed a phone call to the Infectious Disease Clinic at [facility] to see whether I should arrange home antibiotics to start on Wednesday after he leaves his [facility] appointments presumably or whether they will take care of that. Note that it is possible that the patient will simply stay at [facility] on Wednesday, and will not need any home IV antibiotics. RECOMMENDATIONS: 1. Continue daptomycin and ceftaroline through senior data warehouse architect hours Wednesday and then discharge the patient. 2. The patient is to go to the [facility] Ortho Spine Clinic on the 5th floor to see Dr. Sierra, at which time he will get a CT and then he will proceed down to the Infectious Disease Clinic, which is also at [facility]. There decisions will be made on his future medical and/or surgical management. 3. I anticipate that I will not be part of this case after Wednesday, as he will once again become a [facility] patient and my efforts in this case were largely incidental as the patient just happened to be admitted here with renal failure due to the vancomycin, but I can follow this patient up in whatever capacity is needed as an ID specialist if it is so requested by the [facility] physicians. Thank you very much.
--- NOTE | 2017-04-16 14:48 | PCM.PNMED ---
Subjective Date of Service Apr 16, 2017 Subjective pt denied any new complaints, Exam Vital Signs Vital Sign - Last Date Time Temp Pulse Resp B/P Pulse Ox O2 Delivery O2 Flow Rate FiO2 04/16/17 08:19 36.9 64 16 146/84 97 Room Air Intake and Output 04/15/17 04/15/17 04/16/17 Cumulative From/Thru 15:00 23:00 07:00 04/07/17 12:19 - 04/16/17 06:31 Intake Total 472 ml 2178 ml 31029 ml Output Total 900 ml 38575 ml Balance -428 ml 2178 ml 5502 ml Intake Oral 472 ml 45760 ml IV Total 2178 ml 43269 ml Output Urine Total 900 ml 08034 ml # Voids 3 # Bowel Movements 0 1 Exam NAD, comfortably laying down on the bed no JVD, MMM, no LAD RRR, nl s1, s2 no mrg CTAB, no w,c S,ND,NT,normoactive BS+ warm, no edema, pulses 2/2 back: mildly tender grossly on Tspines throughout, neuro: motor 5/5 throughout, sensory intact to dull throughout IVs and Medications Medications Reviewed: Medications were reviewed in detail Lab and Diagnostics Result Diagram: 04/14/17 0400 04/16/17 0530 Assessment & Plan Grayson Is unfortunate 56-year-old gentleman with past medical of diabetes, hypertension, recent MRSA bacteremia, MRSA epidural abscess and spinal osteomyelitis currently on IV vancomycin admitted due to COLEMAN # COLEMAN, POA, due to vancomycin toxicity. Patient relatively on higher dose of vancomycin . But Patient had completed vancomycin course previously with out any issue. It is possible patient may have inadvertently taken other nephrotoxic medications. Patient does not seem to be on top of his medication list. His discharge summary and recent ID clinic notes state he is discharged on rifampin and vancomycin but patient denies refampcin prescription. ID PA at also confirms patient was discharged on rifampin. His recent clinic note also states he is on lisinopril and Lasix but patient denies. -Initial creatinine 2.3, further improving but not at baseline yet -KUB US normal,PSA elevated at 4.7, will need outpatient workup,UA unremarkable -Discontinued IV fluids 04/10, restarted 04/11 -Discontinued vancomycin, -Urine eosinophils negative # Recent MRSA bacteremia, MRSA epidural abscess, spinal osteomyelitis, repeat BCX 04/07 showed MRSA 1/3 bottels. BCX 04/12 ngtd. MRI of whole spines showed worsening OM and probable abscess. Reading per [facility] showed Progression of osteomyelitis involving the entire T4 and T5 vertebral bodies. Enlargement of paravertebral phlegmon greatest in the left paravertebral soft tissues which extends via the left T4 neural foramen into the epidural space consistent with an epidural abscess exerting mass effect upon the spinal cord at T4-5. Epidural enhancement extends from T1-T7 consistent with further epidural abscess and Worsening medial left fourth rib osteomyelitis with new cortical destruction.C/L spines were negative. As per neurosurgeon , neuroradiology attending Dr.Jerry Malone at [facility], who reviewed MRI from , there was no discrete epidural abscess that can be drained surgically, didn' t recommend surgical intervention and transfer as long as pt is neurologically intact. -pt remained neurologically intact, denied any paresthesia, UE motor weakness. -As per , case was reviewed by Neurosurgeon . plan is to d/c patient on 04/19 then see in the clinic at [facility] -Discontinued vancomycin. started IV daptomycin 8 mg per KG once 04/10, rifampin 300mg tid then increased dapto 10mg/kg, RFP was stopped. Ceftaroline was added, appreciate FU with -Plan to await repeat BCX 04/12, ngtd #Elevated PSA -Unclear significance. Patient had elevated PSA > 10 back in December. He has BPH symptoms.will start Flomax. May need workupof elevated PSA outpatient # Hyponatremia, improving -NS as above # Uncontrolled Insulin-dependent diabetes -Continue home Lantus 20 bid -a1c 11.6. Doubt patient's insulin compliance at home. Patient was inpatient almost half of the last 3-4 months which I would assume he would have better glucose control. # Hypertension -Patient on lisinopril per Clinic notes but patient denies. hold BP meds if any Patient admitted under inpatient status with expected length of stay > 2 midnights for severity of present symptoms, complexities of treatment plan and risk for adverse events full code Disposition: 04/19 without home abx tx, future tx option will be determined at [facility] VTE Mechanical Devices: Intermittant Pneumatic CD Resuscitation Status: CPR: Attempt Resuscitation Time spent 35min Hermelinda Ledesma MD Apr 16, 2017 14:48
[2017-04-16 15:31] VITALS: BP 148/83; PULSE 65; RESP 16; O2SAT 98
--- NOTE | 2017-04-16 17:53 | NUR ---
ACTIVITY Patient denies pain. Tolerating liquids PO and his diet well. Denies nausea. No emesis noted. Denies SOB. Patient stated that he has some tingling in his BLE. Per patient this is not new. Dr. Ledesma made aware. Bladder and bowel function is intact. Refused shower/bed bath multiple times this shift. Voiding without any problems.
[2017-04-16] MEDS: Miconazole 70 Gm Powder TOPICAL PRN (18:22)
[2017-04-16 21:30] VITALS: BP 156/84; PULSE 69; RESP 20; O2SAT 97
[2017-04-17 06:20] VITALS: BP 134/79; PULSE 69; RESP 20; O2SAT 95
--- NOTE | 2017-04-17 06:30 | NUR ---
ACTIVITY PT STATES HE HAS NO PAIN. HE STATED HE HAS NO NUMBNESS OR TINGLING THIS SHIFT, UP TO BR WITH STEADY GAIT AND AGREED TO SHOWER, STATED HE HASN'T FELT LIKE GETTING UP OR SHOWERING, WHEN I ASKED WHY HE SAID HE IS DEPRESSED MORE ABOUT HIS SITUATION AND FAMILY ISSUES. PT TOLERATING PO DIET, DID HAVE EPISODE OF NAUSEA AT END OF SHOWER, ZOFRAN GIVEN AND RESOLVED. IV FLUIDS INFUSING THROUGH PICC IN RT UPPER ARM. BS 271 AND REV'D COVERAGE. CARE CONTINUES
[2017-04-17] MEDS: Insulin LISPRO High-Dose Scale SUBQ SCH ×4 (08:00→22:28)
[2017-04-17] MEDS: Insulin GLARgine 100 Unit/mL Syringe SUBQ SCH ×2 (08:36→20:53)
[2017-04-17] MEDS: Ceftaroline Inj 600 MG in Dextrose 5% 250 ML IV SCH ×2 (08:36→20:53)
[2017-04-17] MEDS: oxyCODONE-Acetamin 5-325 mg Tablet PO PRN (08:37)
--- NOTE | 2017-04-17 10:41 | PCM.PNMED ---
Subjective Date of Service Apr 17, 2017 Subjective pt denied new complaints Exam Vital Signs Vital Sign - Last Date Time Temp Pulse Resp B/P Pulse Ox O2 Delivery O2 Flow Rate FiO2 04/17/17 06:20 36.3 69 20 134/79 95 Room Air Intake and Output 04/16/17 04/16/17 04/17/17 Cumulative From/Thru 15:00 23:00 07:00 04/07/17 12:19 - 04/17/17 06:15 Intake Total 872 ml 869 ml 977 ml 96726 ml Output Total 1775 ml 18035 ml Balance -903 ml 869 ml 977 ml 6445 ml Intake Oral 872 ml 63279 ml IV Total 869 ml 977 ml 28209 ml Output Urine Total 1775 ml 19081 ml # Voids 3 6 # Bowel Movements 0 1 Exam NAD, comfortably laying down on the bed no JVD, MMM, no LAD RRR, nl s1, s2 no mrg CTAB, no w,c S,ND,NT,normoactive BS+ warm, no edema, pulses 2/2 back: mildly tender grossly on Tspines throughout, neuro: motor 5/5 throughout, sensory intact to dull throughout IVs and Medications Medications Reviewed: Medications were reviewed in detail Lab and Diagnostics Result Diagram: 04/14/17 0400 04/16/17 0530 Assessment & Plan Grayson Is unfortunate 56-year-old gentleman with past medical of diabetes, hypertension, recent MRSA bacteremia, MRSA epidural abscess and spinal osteomyelitis currently on IV vancomycin admitted due to COLEMAN # COLEMAN, POA, due to vancomycin toxicity. Patient relatively on higher dose of vancomycin . But Patient had completed vancomycin course previously with out any issue. It is possible patient may have inadvertently taken other nephrotoxic medications. Patient does not seem to be on top of his medication list. His discharge summary and recent ID clinic notes state he is discharged on rifampin and vancomycin but patient denies refampcin prescription. ID PA at also confirms patient was discharged on rifampin. His recent clinic note also states he is on lisinopril and Lasix but patient denies. -Initial creatinine 2.3, wax and wane 1.8-1.9 -KUB US normal,PSA elevated at 4.7, will need outpatient workup,UA unremarkable -Discontinued IV fluids 04/10, restarted 04/11 -Discontinued vancomycin, -Urine eosinophils negative # Recent MRSA bacteremia, MRSA epidural abscess, spinal osteomyelitis, repeat BCX 04/07 showed MRSA 1/3 bottels. BCX 04/12 ngtd. MRI of whole spines showed worsening OM and probable abscess. Reading per [facility] showed Progression of osteomyelitis involving the entire T4 and T5 vertebral bodies. Enlargement of paravertebral phlegmon greatest in the left paravertebral soft tissues which extends via the left T4 neural foramen into the epidural space consistent with an epidural abscess exerting mass effect upon the spinal cord at T4-5. Epidural enhancement extends from T1-T7 consistent with further epidural abscess and Worsening medial left fourth rib osteomyelitis with new cortical destruction.C/L spines were negative. As per neurosurgeon , neuroradiology attending Dr.Jerry Malone at [facility], who reviewed MRI from , there was no discrete epidural abscess that can be drained surgically, didn' t recommend surgical intervention and transfer as long as pt is neurologically intact. -pt remained neurologically intact, denied any paresthesia, UE motor weakness. -As per , case was reviewed by Neurosurgeon . plan is to d/c patient on 04/19 then see in the clinic at [facility] -Discontinued vancomycin. started IV daptomycin 8 mg per KG once 04/10, rifampin 300mg tid then increased dapto 10mg/kg, RFP was stopped. Ceftaroline was added, appreciate FU with , continue until Wednesday then d/c w/o infusion setup -Plan to await repeat BCX 04/12, ngtd #Elevated PSA -Unclear significance. Patient had elevated PSA > 10 back in December. He has BPH symptoms.will start Flomax. May need workupof elevated PSA outpatient # Hyponatremia, improving -NS as above # Uncontrolled Insulin-dependent diabetes -Continue home Lantus 20 bid -a1c 11.6. Doubt patient's insulin compliance at home. Patient was inpatient almost half of the last 3-4 months which I would assume he would have better glucose control. # Hypertension -Patient on lisinopril per Clinic notes but patient denies. hold BP meds if any Patient admitted under inpatient status with expected length of stay > 2 midnights for severity of present symptoms, complexities of treatment plan and risk for adverse events full code Disposition: 04/19 without home abx tx, future tx option will be determined at [facility] [employer]: Intermittant Pneumatic CD Resuscitation Status: CPR: Attempt Resuscitation Time spent 35min Hermelinda Ledesma MD Apr 17, 2017 10:41
[2017-04-17 11:30] VITALS: BP 145/78; PULSE 67; RESP 18; O2SAT 98
--- NOTE | 2017-04-17 13:10 | PROG NOTE ---
[address] [address] PROGRESS NOTE PATIENT: YUE BURGESS : 1960 MR#: [id number] ADMIT: 04/07/2017 JOB ID: [id number] INFECTIOUS DISEASE FOLLOWUP: DATE: 04/17/2017 REASON FOR FOLLOWUP: Thoracic vertebral osteomyelitis with phlegmon and epidural abscess. INTERVAL HISTORY: Overnight, the patient has had no fevers, chills, or sweats. No pulmonary or GI symptoms. He reports his legs feel strong and he is able to walk around, take shower and do other activities without weakness or abnormality in his lower extremities. No bowel or bladder problems have developed. PHYSICAL EXAMINATION: Reveals an afebrile gentleman, temperature 36.4, pulse 67, respiratory rate 18, blood pressure 145/78. He is saturating well on room air. He is in no acute distress. The patient's mental status is clear. Oral cavity negative. Interscapular area with minimal tenderness; little change from before. Lungs are clear. Abdomen benign. Lower extremities with 5/5 strength. LABORATORY DATA: Labs include white count last measured three days ago at 9000. Creatinine was measured yesterday at 1.9; it has not been repeated. Micro studies include negative blood cultures from the 12th which are now 5 days old. Recall that the blood cultures from the had a single positive for MRSA which was rifampin resistant. IMAGING: No new imaging. IMPRESSION: This patient is stable on our current dual combination of daptomycin and ceftaroline. I have continued to discuss him on a daily basis including three additional discussions by telephone yesterday afternoon with the [facility] Ortho Spine and Infectious Disease teams. The current plan is for the patient to be discharged early Wednesday morning and to drive to [place], where he will have a CT followed by an Ortho Spine appointment followed by an Infectious Disease appointment. I have been told that it is almost certain he will be admitted from clinic so we will not need additional follow on orders. At this point, we have no evidence of progressive cord impingement or any lower extremity weakness or other neurologic dysfunction, but the patient continues to have a fair amount of interscapular pain. RECOMMENDATIONS: 1. Continue daptomycin and ceftaroline to the transfer table operator hours on Wednesday; then he can be discharged. 2. The Infectious Disease team as well as Dr. Sierra of Ortho Spine at [facility] will be picking up his care after he arrives there Wednesday. 3. He has a schedule of activities for Wednesday at [facility] in the chart and he should absolutely have a copy this before he leaves on Wednesday. This was all discussed with the patient.
[2017-04-17] MEDS: DAPTOmycin Inj 1,000 MG in 0.9% Sodium Chloride 50 ML IV SCH (15:09)
[2017-04-17] MEDS: 0.9% Sodium Chloride 1,000 ML IV SCH (17:29)
--- NOTE | 2017-04-17 19:29 | NUR ---
pain Pt complained of pain 5/10 this am, administered Percocet, pt stated pain down to 2/10 and just stiff
[2017-04-17 19:50] VITALS: BP 126/79; PULSE 75; RESP 20; O2SAT 99
--- NOTE | 2017-04-18 05:31 | NUR ---
Shift Note Assumed pt care [id number], pt a/o able to make needs known, no c/o pain/discomfort throughout night, 1lumen PICC patent continues with IVF, q4 NVS checks, pt refused 3am BG check. 5 am rounds no signs of hypo/hyperglycemia, Pending DC on wednesday, call light in reach at all times.
[2017-04-18 07:24] VITALS: BP 131/83; PULSE 73; RESP 16; O2SAT 94
[2017-04-18] MEDS: Insulin LISPRO High-Dose Scale SUBQ SCH ×4 (08:00→21:18)
[2017-04-18] MEDS: Ceftaroline Inj 600 MG in Dextrose 5% 250 ML IV SCH ×2 (08:52→21:10)
[2017-04-18] MEDS: Insulin GLARgine 100 Unit/mL Syringe SUBQ SCH ×2 (08:54→21:17)
[2017-04-18 09:05] VITALS: BP 139/75; PULSE 61; RESP 16; O2SAT 94
--- NOTE | 2017-04-18 09:39 | PCM.PNMED ---
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 directly to neurosurgeon clinic at 9am Exam Vital Signs Vital Sign - Last Date Time Temp Pulse Resp B/P Pulse Ox O2 Delivery O2 Flow Rate FiO2 04/18/17 09:05 36.5 61 16 139/75 94 Room Air Intake and Output 04/17/17 04/17/17 04/18/17 Cumulative From/Thru 15:00 23:00 07:00 04/07/17 12:19 - 04/18/17 05:29 Intake Total 636 ml 2400 ml 900 ml 95387 ml Output Total 1050 ml 1525 ml 375 ml 56040 ml Balance -414 ml 875 ml 525 ml 7431 ml Intake Oral 636 ml 1312 ml 25961 ml IV Total 1088 ml 900 ml 51066 ml Output Urine Total 1050 ml 1525 ml 375 ml 44735 ml # Voids 2 8 # Bowel Movements 0 0 1 Exam NAD, comfortably laying down on the bed no JVD, MMM, no LAD RRR, nl s1, s2 no mrg CTAB, no w,c S,ND,NT,normoactive BS+ warm, no edema, pulses 2/2 back: mildly tender grossly on Tspines throughout, neuro: motor 5/5 throughout, sensory intact to dull throughout IVs and Medications Medications Reviewed: Medications were reviewed in detail Lab and Diagnostics Result Diagram: 04/14/17 0400 04/16/17 0530 Assessment & Plan [place] Is unfortunate 56-year-old gentleman with past medical of diabetes, hypertension, recent MRSA bacteremia, MRSA epidural abscess and spinal osteomyelitis currently on IV vancomycin admitted due to COLEMAN # COLEMAN, POA, due to vancomycin toxicity. Patient relatively on higher dose of vancomycin . But Patient had completed vancomycin course previously with out any issue. It is possible patient may have inadvertently taken other nephrotoxic medications. Patient does not seem to be on top of his medication list. His discharge summary and recent ID clinic notes state he is discharged on rifampin and vancomycin but patient denies refampcin prescription. ID PA at also confirms patient was discharged on rifampin. His recent clinic note also states he is on lisinopril and Lasix but patient denies. -Initial creatinine 2.3, wax and wane 1.8-1.9 -KUB US normal,PSA elevated at 4.7, will need outpatient workup,UA unremarkable -Discontinued IV fluids 04/10, restarted 04/11 -Discontinued vancomycin, -Urine eosinophils negative # Recent MRSA bacteremia, MRSA epidural abscess, spinal osteomyelitis, repeat BCX 04/07 showed MRSA 1/3 bottels. BCX 04/12 ngtd. MRI of whole spines showed worsening OM and probable abscess. Reading per [facility] showed Progression of osteomyelitis involving the entire T4 and T5 vertebral bodies. Enlargement of paravertebral phlegmon greatest in the left paravertebral soft tissues which extends via the left T4 neural foramen into the epidural space consistent with an epidural abscess exerting mass effect upon the spinal cord at T4-5. Epidural enhancement extends from T1-T7 consistent with further epidural abscess and Worsening medial left fourth rib osteomyelitis with new cortical destruction.C/L spines were negative. As per neurosurgeon , neuroradiology attending Dr.Jerry Malone at [facility], who reviewed MRI from , there was no discrete epidural abscess that can be drained surgically, didn' t recommend surgical intervention and transfer as long as pt is neurologically intact. -pt remained neurologically intact, denied any paresthesia, UE motor weakness. -As per , case was reviewed by Neurosurgeon . plan is to d/c patient on 04/19 then see in the clinic at [facility] -Discontinued vancomycin. started IV daptomycin 8 mg per KG once 04/10, rifampin 300mg tid then increased dapto 10mg/kg, RFP was stopped. Ceftaroline was added, appreciate FU with , continue until Wednesday then d/c w/o infusion setup -Plan to await repeat BCX 04/12, ngtd #Elevated PSA -Unclear significance. Patient had elevated PSA > 10 back in December. He has BPH symptoms.will start Flomax. May need workupof elevated PSA outpatient # Hyponatremia, improving -NS as above # Uncontrolled Insulin-dependent diabetes -Continue home Lantus 20 bid -a1c 11.6. Doubt patient's insulin compliance at home. Patient was inpatient almost half of the last 3-4 months which I would assume he would have better glucose control. # Hypertension -Patient on lisinopril per Clinic notes but patient denies. hold BP meds if any Patient admitted under inpatient status with expected length of stay > 2 midnights for severity of present symptoms, complexities of treatment plan and risk for adverse events full code Disposition:Plan is to d/c tomorrow early AM around 6am,, ride from , without home abx tx, scheduled to see at 9am in the clinic at [facility] [employer]: Intermittant Pneumatic CD Resuscitation Status: CPR: Attempt Resuscitation Time spent 35min Hermelinda Ledesma MD Apr 18, 2017 09:39
[2017-04-18] MEDS: DAPTOmycin Inj 1,000 MG in 0.9% Sodium Chloride 50 ML IV SCH (15:01)
--- NOTE | 2017-04-18 15:21 | PCM.DIMED ---
Discharge Instructions Date of Service Apr 18, 2017 Dates of Hospitalization Apr 07, 2017 at 16:34 Discharge Diagnosis Discharge Diagnosis MRSA bacteremia Medication Instructions Additional med instructions IV antibiotics were not set up as treatment option has not decided yet. Diet Discharge Diet: No restrictions Activity Discharge Activity: No restrictions Patient Instructions Patient Instructions You were hospitalized with back pain, severe kidney injuries associated with antibiotics. You were found to have probable worsening findings on your spines, which is particularly concerning given your recurrent episode of MRSA infection , spine lesions. You will be seen by at [facility] to determine the option for treatment. Please go to as scheduled at 9am on 04/19 Hermelinda Ledesma MD Apr 18, 2017 15:21
[2017-04-18 15:30] VITALS: BP 129/79; PULSE 68; RESP 17; O2SAT 95
--- NOTE | 2017-04-18 15:34 | PCM.DC.MED ---
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 After the administration of contrast, axial and sagittal T1 spin echo with fat saturation through the cervical spine. COMPARISON: None. FINDINGS: Image quality: Excellent. Alignment and curvature: There is normal bony alignment. Marrow: Cervical spine marrow is normal in overall signal, without suspicious enhancement. Spinal cord: Visualized spinal cord has normal size and signal. No cerebellar tonsillar herniation. No abnormal intramedullary enhancement. Paraspinous soft tissues: There is extensive soft tissue enhancement and increased T2 signal in the paracentral posterior soft tissues. No discrete drainable fluid collections. C2-3: Minimal intervertebral body disc height loss. No significant disc osteophyte complex. Uncovertebral joint hypertrophy. Mild right neuroforaminal narrowing. The left neural foramen and central spinal canal are patent. C3-4: Minimal intervertebral body disc height loss with broad-based posterior disc osteophyte complex. Facet joint and uncovertebral joint hypertrophy. This causes moderate left and mild right neural foraminal narrowing. Central spinal canal is patent. C4-5: Mild intervertebral body disc height loss and broad-based posterior disc osteophyte complex. Facet joint and uncovertebral joint hypertrophy. Mild bilateral neural foraminal narrowing. Patent central spinal canal. C5-6: Moderate intervertebral disc height loss with broad-based posterior disc osteophyte complex and facet joint and uncovertebral joint hypertrophy. Findings cause moderate left and mild right neural foraminal narrowing. Patent central spinal canal. C6-7: Moderate intervertebral body disc height loss and broad-based posterior disc osteophyte complex. Facet joint and uncovertebral joint hypertrophy. Mild bilateral neural foraminal narrowing. Patent central spinal canal. C7-T1: Minimal intervertebral disc height loss. No significant disc osteophyte complex. Facet joint and uncovertebral joint hypertrophy. The central spinal canal and neural foramina are patent. IMPRESSION: No evidence of discitis or epidural abscess in the cervical spine. Extensive soft tissue enhancement and edema in the posterior midline soft tissues most consistent with cellulitis or postoperative change although there is no postoperative change in the cervical spine itself. There are no drainable fluid collections. Epidural enhancement in the upper thoracic spine is noted and better seen on today's dedicated thoracic spine MRI. Dictated by: Twin Prince M.D. on 04/13/2017 at 22:16 Approved by: Twin Prince M.D. on 04/13/2017 at 22:31 PROCEDURE: MRI LUMBAR SPINE WITH AND WITHOUT CONTRAST ([id number]) INDICATIONS: CONCERNING OF OSTEOMYELITIS OF T1-T3,C7-T1 TECHNIQUE: Noncontrast sagittal T1 spin echo and T2 fast spin echo, sagittal STIR, axial T1 and T2 fast spin echo through the lumbar spine. In cases with scoliosis, additional coronal T2 fast spin echo may be performed. After the administration of contrast, sagittal and axial T1 spin echo with fat saturation through the lumbar spine. COMPARISON: None. FINDINGS: Image quality: Excellent. Alignment and curvature: There is normal bony alignment. Marrow: Marrow is of normal overall signal. No acute vertebral body compression fractures. No suspicious marrow enhancement. Spinal cord: Conus medullaris terminates at the L1 level. Visualized spinal cord demonstrates normal signal, without suspicious enhancement. Paraspinous soft tissues: No paravertebral masses or abnormal enhancement. L1-L2: Moderate intervertebral body disc height loss. Facet joint and ligamentum flavum hypertrophy. The central spinal canal and neural foramina are patent. L2-L3: Mild intervertebral body disc height loss. Facet joint and ligamentum flavum hypertrophy. The central spinal canal and neural foramina are patent L3-L4: Mild intervertebral body disc height loss. Facet joint and ligamentum flavum hypertrophy. The central spinal canal and neural foramina are patent L4-L5: Mild/moderate intervertebral disc height loss with broad-based posterior disc bulge. Facet joint and ligamentum flavum hypertrophy. Minimal bilateral neural foraminal narrowing. The spinal canal is patent. Tiny focus of increased T2 signal in the posterior disc. L5-S1: Mild intervertebral disc height loss with broad-based posterior disc bulge. Facet joint and ligamentum flavum hypertrophy. The central spinal canal and neural foramina are patent. IMPRESSION: No significant interval change. No evidence of discitis or osteomyelitis. Stable mild degenerative changes. Dictated by: Twin Prince M.D. on 04/13/2017 at 22:08 Approved by: Twin Prince M.D. on 04/13/2017 at 22:16 PROCEDURE: MRI THORACIC SPINE WITH AND WITHOUT CONTRAST ([id number]) INDICATIONS: CONCERNING OF OSTEOMYELITIS OF T1-T3,C7-T1 TECHNIQUE: Noncontrast sagittal T1 spin echo and T2 fast spin echo, sagittal STIR, axial T1 and T2 fast spin echo through the thoracic spine. After the administration of contrast, axial and sagittal T1 spin echo with fat saturation through the thoracic spine. COMPARISON: [facility], MR, MR THORACIC SPINE W&WO CON, 03/16/2017, 20:55. [facility], , MR THORACIC SPINE W&WO CON, 12/29/2016, 18: 28. FINDINGS: Image quality: Excellent. Alignment and curvature: There is normal bony alignment. Marrow: Interval worsening of increased T2 signal and abnormal enhancement which now involve the entire T4 and T5 vertebral bodies. Normal signal in the remaining vertebral bodies. Spinal cord: Enhancing soft tissue extends into the central spinal canal via the left T4 neural foramen where it is confluent with abnormal posterior epidural enhancement extending from the T1-T7 levels greatest at T4 and T5 where enhancement measures up to 7 mm in diameter and exerts mass effect upon the spinal cord with residual cord size of 1.1 x 1.0 CM. Paraspinous soft tissues: Enlargement of enhancing left paravertebral soft tissue at T4 measuring at least 6.7 x 3.8 x 6.5 CM. There is lesser enhancing soft tissue in the right T4 paravertebral soft tissues as well as the bilateral T5 paravertebral soft tissues. Miscellaneous: Osteomyelitis and a degree of cortical destruction the medial left fourth rib progressed since the previous study. Abnormal enhancement in the medial left third rib. Small right pleural effusion. IMPRESSION: Progression of osteomyelitis was now involving the entire T4 and T5 vertebral bodies. Enlargement of paravertebral phlegmon greatest in the left paravertebral soft tissues which extends via the left T4 neural foramen into the epidural space consistent with an epidural abscess exerting mass effect upon the spinal cord at T4-5. Epidural enhancement extends from T1-T7 consistent with further epidural abscess. Worsening medial left fourth rib osteomyelitis with new cortical destruction. Small right pleural effusion. Findings discussed via telephone with the patient's nurse Charlette via telephone at 9:30 pm on 04/13/2017. Dictated by: Twin Prince M.D. on 04/13/2017 at 21:23 Approved by: Twin Prince M.D. on 04/13/2017 at 21:51 PROCEDURE: US RENAL SONOGRAM INDICATIONS: renal failure TECHNIQUE: Real-time scanning was performed of the kidneys and bladder, with image documentation. COMPARISON: None. FINDINGS: Kidneys: Kidneys are normal in size. Right kidney measures 15.1 cm long; left kidney measures 13.2 cm long. Right renal cortical thickness is 1.5 cm; left renal cortical thickness is 1.7 cm. Renal cortical echotexture is normal. No hydronephrosis or nephrolithiasis. No suspicious solid mass lesions. Bladder: Pre-void bladder volume is 407 mL. Post-void residual is 27 mL. Pre- void images demonstrate no intraluminal masses or stones. On pre-void images, the left ureteral jet is noted with color Doppler interrogation. (Of note, ureteral jets may not be detectable in up to 25% of cases due to insufficient differences in specific gravity between ureteral and bladder urine). Miscellaneous: No free pelvic fluid. IMPRESSION: 1. No evidence of hydronephrosis. 2. Kidneys are sonographically normal. Dictated by: Maren Paz MD, PhD on 04/07/2017 at 17:23 Approved by: Maren Paz MD, PhD on 04/07/2017 at 17:25 Brief History HPI obtained by Dr. Carter on 04/07 Background history Grayson Is unfortunate 56-year-old gentleman with past medical history of diabetes, hypertension who presented to [facility] on 12/27/16 with sepsis/MRSA bacteremia and MRI showed T2-T3 epidural abscess and transferred to [facility] on 12/29. He was found to have C4-T5 MRSA epidural abscess and underwent laminectomy and evacuation. He was discharged with IV antibiotics? Vancomycin and completed. 2 weeks after he completed his antibiotics course he presented to [facility] ED on 03/16/17 with back pain. MRI showed T4- T5 posterior discitis with adjacent T4 and T5 vertebral body and medial left 4th rib osteomyelitis and T4- T5 infectious phlegmon with extension to the left neural foramen causing significant left central spinal canal narrowing. Also showed T1- T7 epidural abscess. He was transferred to [facility] on 03/16 from emergency room. He was found to have MRSA bacteremia, T1- T3 osteomyelitis, C7- T1 epidural phlegmon. He did not undergo surgery on recent admission. It was thought to be due to hematogenous spread of infection and progression of previous infection to osteomyelitis.TTE 03/19 and JEZ 03/23 negative for endocarditis. He was treated with vancomycin and rifampicin. He was discharged on 03/27 to home with IV vancomycin to complete [address] [facility] ID note states he was discharged on vancomycin ( 03/16 -present) and rifampin but the patient states he is only on vancomycin. He did not have any neurological deficit on recent admission. Blood culture 03/18 MRSA 6 bottles,03/17 1 out of 4 bottles. Blood culture 03/21,03/22 no growth He was giving vancomycin twice daily infusion himself. He gave blood samples yesterday and got a call today stating his kidney function has worsened with creatinine in mid 2's from normal baseline and vancomycin level in 40's and was advised to come to [facility] ED . ID team at [facility] recommended admission and workup for COLEMAN, recommended stopping vancomycin and checking daily vancomycin level. Also recommended switching to IV daptomycin 6 mg per KG once daily once vancomycin level is < 10 Denies fever. He is Eating and drinking as usual. No diarrhea. Patient has chronic history of prostatism symptoms. History of urgency. He had elevated PSA > 10 on prior admission in Dec and was attributed to prostatitis. ED course: Vitals unremarkable. Creatinine 2.23,Na 133, glucose 246, vancomycin random 26.3 Nephrology and ID consulted by ED Initial consult from ID, on 04/08 The patient is a very complex 56-year-old known to me from an admission about a year ago. During that admission, the patient, who has underlying diabetes, had stepped on a nail and then developed osteomyelitis of his right 2nd toe. Eventually required resection of the toe and then a prolonged course of IV antibiotics for MSSA and osteomyelitis. He got through that therapy without any difficulty and was able to go back to work. More recently, he presented to this hospital in late December with what was thought to be febrile prostatitis. He was eventually found to have a MRSA bacteremia with severe cervical and upper thoracic pain. An MRI scan revealed that he actually had a spinal epidural abscess. The patient was emergently transferred on or about December 30 to [place], where he underwent an extensive laminectomy from C4-T5. This was obviously due to the MRSA and he received a long course of IV vancomycin, followed by some oral Bactrim, which ended around March 01. At the conclusion of that therapy, the patient felt well and was getting close to the point where he thought he could return to work. Unfortunately, within a couple of weeks of finishing his antibiotics he developed increasing and severe back pain, which brought him back to the emergency department again on March 16. At that time an emergent MRI was repeated, and his MRI showed that he had developed T4-5 posterior diskitis with involvement of T4-5 vertebral body and associated osteomyelitis, and there was also an enhancing phlegmon at the T4-5 level with extension through the left neural foramen with cord compression on the left. The radiologists were also concerned about possible epidural enhancement all the way from T1-T7 with possible epidural abscess. The patient was then emergently transferred from the ED here back to [facility]. Blood cultures turned out to be positive during that second admission as well for MRSA, which was clindamycin and daptomycin susceptible. At [facility], he was evaluated by Spine Surgery again, as well as the Infectious Disease service. It was decided not to operate and rather to treat him for about three months for vertebral osteo with associated phlegmon. They carefully examined the patient from a neurologic point of view, and felt he would be stable for this. Subsequently, the patient was discharged home just a week or so ago to receive IV vancomycin through at least May 20, along with oral rifampin 300 t.i.d. During his week or so at home, the home infusion company, [employer], has had a terrible time reaching the patient because they noticed that his vancomycin levels were rapidly increasing. Starting on about Wednesday, they noticed his vancomycin troughs were becoming too high and made many attempts to call him. Eventually, they had to send a nurse to his house to tell him to stop taking the vancomycin which he had been going along taking as per schedule. By the time the vancomycin was finally stopped, a random level was approaching 60 and his creatinine had increased dramatically from his baseline around 0.6 to 2.23. He was directed to go to the emergency department here at [facility]. I had recommended this patient actually probably go back to [facility], as he has a very complex spine infection, which has basically not been cured after one long attempt which included surgery and now has recurred and is quite disabling to the patient. Apparently, [facility] was not able to accommodate the patient though, and they have recommended we admit him here to deal with his vancomycin-induced renal failure. On speaking to the patient, it is also clear he has no idea about the rifampin and has clearly not taken any of it since he was discharged home. The patient tells me he has not had fevers or chills the last few days. He has noticed continual upper back pain and headaches, which he says are closely tied to one another. He has not had a sore throat. He has had a minimal nonproductive cough without anterior chest pain. He denies nausea, vomiting, or diarrhea. He states that his urine output seems to have fallen way off during the days after he left [facility] and was at home taking the vancomycin, and it now seems to be picking up again. He has not had any additional problems with his right foot. Hospital Course Grayson Is unfortunate 56-year-old gentleman with past medical of diabetes, hypertension, recent MRSA bacteremia, MRSA epidural abscess and spinal osteomyelitis currently on IV vancomycin admitted due to COLEMAN # COLEMAN, given high trough level at home, it was thought to be from vancomycin toxicity. Urine eosinophils negative. Initial creatinine was 2.3, then improved to 1.77-1.9 but didn't return to previous normal range upon discharge. KUB US were normal. vancomycin was switched to daptomycin. # Recent MRSA bacteremia, MRSA epidural abscess, spinal osteomyelitis, repeat BCX 04/07 showed MRSA 1/3 bottles. BCX 04/12 didn't show any organisms after 5days. As vancomycin was discontinued, pt was started on IV daptomycin 8 mg per KG and oral rifampin 300mg tid. eventually RFP was stopped and Daptomycin was increased to 10mg/kg. Given concern for breakthrough MRSA infection, MRI of whole spines repeated, which was read as Progression of OM involving the entire T4 and T5 vertebral bodies, enlargement of paravertebral phlegmon greatest in the left paravertebral soft tissues which extends via the left T4 neural foramen into the epidural space consistent with an epidural abscess exerting mass effect upon the spinal cord at T4-5. Epidural enhancement extends from T1- T7 consistent with further epidural abscess. Worsening medial left fourth rib osteomyelitis with new cortical destruction. Given this worsening findings, possible epidural abscess, worsening infection even with high dose vancomycin, pt was consulted with [facility] neurosurgery, ID department by and hospitalist service with multiple providers. Consensus til date was that pt doesn't require urgent neurosurgical intervention as neurologically there was no deficit observed. Plan is to see at [facility] at 9am on 04/19 and determine tx of choice, as pt has good follow up by dedicated team at , pending treatment option, home abx was not established upon d/c. #Elevated PSA, Unclear significance. Patient had elevated PSA > 10 back in December with prostatitis, given BPH symptoms.pt was started on Flomax, tolerated well, likely needs further urologic w/u #hyponatremia resolved. # Uncontrolled Insulin-dependent diabetes, a1c 11.6. pt was continued home Lantus 20 bid, # Hypertension, Patient was on lisinopril per Clinic notes but patient denies. BP remained stable without Exam Vital Signs (Last) Date Time Temp Pulse Resp B/P Pulse Ox O2 Delivery O2 Flow Rate FiO2 04/14/17 05:51 36.6 71 18 118/70 95 Room Air Exam NAD, comfortably laying down on the bed no JVD, MMM, no LAD RRR, nl s1, s2 no mrg CTAB, no w,c S,ND,NT,normoactive BS+ warm, no edema, pulses 2/2 back: mildly tender grossly on Tspines throughout, neuro: motor 5/5 throughout, sensory intact to dull throughout Test 04/07/17 13:40 04/07/17 18:15 04/08/17 03:50 04/09/17 05:30 Hemoglobin A1c 11.6% (4.8-5.6) Prostate Specific Antigen 4.7ng/mL (0.0-4.0) Free Prostate Specific Antigen 0.69ng/mL (N/A) Percent Free Prostate Specific Ag 14.7% (.) Hold Teresa Top Tube Received (Received) Hold Purple Top Tube Received (Received) Procalcitonin 0.08ng/mL (0.00-0.08) Uric Acid 5.3mg/dL (2.6-7.2) Total Creatine Kinase 38U/L (21-232) C-Reactive Protein 3.1mg/dL (0.0-0.5) Globulin (PEP) 3.5g/dL (2.2-3.9) Albumin/Globulin Ratio 0.7 (0.7-1.7) Rduav-6-Azdlerqyf 0.3g/dL (0.0-0.4) Lnwow-2-Sjntdjcdm 1.5g/dL (0.4-1.0) Beta Globulins 1.2g/dL (0.7-1.3) Gamma Globulins 0.6g/dL (0.4-1.8) Serum Monoclonal Protein Not observedg/dL Protein Electrophoresis Comment Comment (.) Protein Electrophoresis Interpret Comment (.) Hepatitis A IgM Antibody Negative (Negative) Hepatitis B Surface Antigen Negative (Negative) Hepatitis B Core IgM Antibody Negative (Negative) Hepatitis C Antibody <0.1s/co ratio (0.0-0.9) Hepatitis C Comment Comment (.) Test 04/09/17 08:59 04/10/17 08:42 04/14/17 04:00 Urine Color Yellow (YELLOW) Urine Appearance Clear (CLEAR,HAZY) Urine pH 5.0 (5.0-8.0) Urine Specific [place] 1.010 (1.003-1.035) Urine Protein Negativemg/dL (NEG,TRACE) Urine Glucose (UA) Negativemg/dL (NEGATIVE) Urine Ketones Negativemg/dL (NEGATIVE) Urine Occult Blood Negative (NEGATIVE) Urine Nitrite Negative (NEGATIVE) Urine Bilirubin Negative (NEGATIVE) Urine Urobilinogen Normalmg/dL (NORMAL) Urine Leukocyte Esterase Negative (NEGATIVE) Urine RBC 0-2/hpf (0-2) Urine WBC 0-5/hpf (0-5) Urine Epithelial Cells Occasional/hpf (NONE-MOD) Urine Crystals None seen (NONE SEEN) Urine Bacteria None/hpf (NONE-FEW) Urine Hyaline Casts None/lpf (NONE) Urine Granular Casts None seen (NONE SEEN) Urine Waxy Casts None seen (NONE SEEN) Urine Red Blood Cell Casts None seen (NONE SEEN) Urine White Blood Cell Casts None seen (NONE SEEN) Urine Mucus Present (None Seen) Urine Trichomonas None seen (NONE SEEN) Urine Yeast Few (NONE SEEN) Urinalysis Comment None Urine Culture Reflexed Not indicated Urine Random Creatinine 54mg/dL (22-328) Urine Random Total Protein 6mg/dL (0-15) Urine Protein/Creatinine Ratio 0.11 (0-200) Random Vancomycin Level 11.7ug/mL Rx White Blood Count 9.0th/mm3 (3.8-10.1) Red Blood Count 4.12mil/mm3 (4.40-5.80) Hemoglobin 11.0g/dL (13.8-17.2) Hematocrit 34.0% (41.0-50.0) Mean Corpuscular Volume 82.5fL (81-100) Mean Corpuscular Hemoglobin 26.7pg (27.0-35.0) Mean Corpuscular Hemoglobin Concent 32.4% (32.0-37.0) Red Cell Distribution Width 13.7% (12.3-15.4) Platelet Count 279bil/L (150-400) Neutrophils (%) (Auto) 68.5% (40-74) Lymphocytes (%) (Auto) 19.6% (14-46) Monocytes (%) (Auto) 7.3% (4-12) Eosinophils (%) (Auto) 4.2% (0-5) Basophils (%) (Auto) 0.2% (0-3) Sodium Level 139mEq/L (134-144) Potassium Level 4.2mEq/L (3.5-5.2) Chloride Level 101mEq/L (97-108) Carbon Dioxide Level 24mmol/L (18-29) Blood Urea Nitrogen 32mg/dL (6-24) Creatinine 1.77mg/dL (0.76-1.27) Estimat Glomerular Filtration Rate 42mL/min (>59) Glucose Level 155mg/dL (60-99) Calcium Level 9.4mg/dL (8.5-10.1) Phosphorus Level 4.5mg/dL (2.5-4.9) Magnesium Level 1.9mg/dL (1.6-2.6) Total Bilirubin 0.2mg/dL (0.0-1.2) Aspartate Amino Transf (AST/SGOT) 11U/L (0-50) Alanine Aminotransferase (ALT/SGPT) 16U/L (0-44) Alkaline Phosphatase 96U/L (25-150) Total Protein 6.6g/dL (6.4-8.4) Albumin 3.3g/dL (3.4-5.0) Discharge Medications Discharge Medications Insulin Glargine (Lantus U100 Solostar Insulin Pen) 100 Unit/1 Ml Insuln.pen 20 UNIT SUBQ BID (Reported) Insulin Lispro (HumaLOG U100 Insulin Pen) 100 Unit/1 Ml Insuln.pen 4-8 UNITS [id number] BEFORE MEALS (Reported) Followup Plan Disposition: home and clinic Time spent 65min Hermelinda Ledesma MD Apr 14, 2017 11:23
--- NOTE | 2017-04-18 18:18 | NUR ---
ACTIVITY Patient denies pain. Tolerating liquids PO and his diet well. Denies nausea. No emesis noted. Denies SOB. Patient showered this afternoon. Ambulating independently in the room. Gait is steady. No significant neurological changes. Voiding without any problems. Discharge paper works are ready for patients D/C at 0600 tomorrow. Went through the discharge instructions with him and the he verbalized understanding. Verified this morning with his . She will be here at 0600 to pick him up tomorrow and transport him to [facility].
[2017-04-18] MEDS: oxyCODONE-Acetamin 5-325 mg Tablet PO PRN (19:44)
[2017-04-18 19:45] VITALS: BP 159/88; PULSE 69; RESP 14; O2SAT 97
[2017-04-18] MEDS: 0.9% Sodium Chloride 1,000 ML IV SCH (19:45)
[2017-04-19] MEDS: 0.9% Sodium Chloride 1,000 ML IV SCH (01:45)
[2017-04-19 04:46] VITALS: BP 131/74; PULSE 59; RESP 16; O2SAT 95
== END 2017-04-19 05:55 | disposition home or self-care (01) | DRG 540 ==
LOC: SED 12:14 → OSC 16:34
PROVIDERS: ADMIT Internal Medicine; ATTEND Internal Medicine
DX: M46.24 Osteomyelitis of vertebra, thoracic region (principal); N17.9 Acute kidney failure, unspecified; R78.81 Bacteremia; E87.1 Hypo-osmolality and hyponatremia; N14.1 Nephropathy induced by other drugs, medicaments and biological substances; T36.8X5A Adverse effect of other systemic antibiotics, initial encounter; E11.65 Type 2 diabetes mellitus with hyperglycemia; I10 Essential (primary) hypertension; B95.62 Methicillin resistant Staphylococcus aureus infection as the cause of diseases classified elsewhere; Z79.4 Long term (current) use of insulin; I73.9 Peripheral vascular disease, unspecified; E11.69 Type 2 diabetes mellitus with other specified complication; E11.21 Type 2 diabetes mellitus with diabetic nephropathy; R97.20 Elevated prostate specific antigen [PSA]